=== PATIENT | male | born 1945 | race Caucasian/White ===

== ENCOUNTER 2016-06-30 11:09 | Day surgery (SDC) | payer OTHER ==
[2016-06-30] VITALS (12 sets, daily range): BP systolic 134–178; BP diastolic 74–100
[~2016-06-30] VITALS: Ht 172.7 cm; Wt 92.5 kg
[~2016-06-30 11:09] MED LIST: ASP81TEC PO; ATEN25TA PO; ATOR80TA76 PO; CARV12.53 PO; CEPH500C PO; CLOP75TA69 PO; FENO145T20 PO; FLAX100031 PO; GABA300S2 PO; GLYB5TAB6 PO; HUM100VI4 SQ; HUM10VIA2 SQ; HYDR25TA4 PO; LISI1TAB PO; LOSA100T28 PO; MECL25TA56 PO; MTF500T PO; NIAC250T17 PO; SIMV40TA4 PO; TAMS0.4C2 PO
--- OUTSIDE RECORDS SUMMARY | 2016-06-30 11:12 | XMS REPORT | Continuity of Care Document ---
Author Author [facility] Organization [facility] Address Unknown Phone Unavailable Care Team Providers Care Sack Sorter Name Role Phone PCP Unavailable Source Comments Some departments are not documenting in the electronic medical record. If you do not see the information that you expected, contact Release of Information in the Health Information Management department at [phone] for further assistance in locating additional records.[facility] Active Allergies and Adverse Reactions Not on File Current Medications Not on file Active Problems Not on file Social History Tobacco Use Types Packs/Day Years Used Date Never Assessed Plan of Care Health Maintenance Due Date Last Done Comments Physical (Comprehensive) 1952 Exam Pertussis Vaccine 1957 Tetanus Vaccine 1963 Colorectal Cancer 01/16/1996 Screening Shingles Vaccine 2006 Prevnar/Pneumovax (#1) 2011 Influenza Vaccine 02/10/2016 Results from Last 3 Months Not on file
--- OUTSIDE RECORDS SUMMARY | 2016-06-30 11:13 | XMS REPORT | Continuity of Care Document ---
Author Author [facility] Organization [facility] Address Unknown Phone Unavailable Care Team Providers Care Monorail Operator Name Role Phone PCP Unavailable Source Comments Some departments are not documenting in the electronic medical record. If you do not see the information that you expected, contact Release of Information in the Health Information Management department at [phone] for further assistance in locating additional records.[facility] Active Allergies and Adverse Reactions Not on [...]
[2016-06-30] MEDS ORDERED: LIDOCAINE 1% INJ 20 ML (XYLOCAINE) VIAL ONE (11:29)
[2016-06-30] MEDS ORDERED: NS IV 1000 ML 1,000 ML ONE (11:29)
[2016-06-30] MEDS ORDERED: HEParin (CATH LAB) 2,000 ML IV ONE (11:29)
[2016-06-30 12:56] LABS: RED BLOOD COUNT 6.46 10^6/uL (4.35-5.85); RED CELL DISTRIBUTION WIDTH 14.6 % (10.0-14.5); WHITE BLOOD COUNT 7.2 10^3/uL (4.3-11.0)
[2016-06-30 13:02] LABS: BILIRUBIN,URINE NEGATIVE (NEGATIVE); KETONES,URINE NEGATIVE (NEGATIVE); LEUKOCYTE ESTERASE ,URINE NEGATIVE (NEGATIVE); NITRITE,URINE NEGATIVE (NEGATIVE); PH,URINE 5 (5-9); PROTEIN,URINE 4+ (NEGATIVE); UROBILINOGEN,URINE NORMAL (NORMAL)
[2016-06-30 13:07] LABS: PROTHROMBIN TIME PATIENT 12.5 SEC (12.2-14.7)
[2016-06-30 13:25] LABS: WBC,URINE RARE /HPF
--- NOTE | 2016-06-30 13:30 | Diagnostic Imaging Report ---
INDICATION: Hypertension. Study is performed prior to cardiac catheterization. TIME OF EXAM: 1319 hours. COMPARISON: Comparison is made to study of 04/24/2016. FINDINGS: Overall heart size and pulmonary vascularity are within normal limits. Mildly prominent interstitial markings are seen throughout both lungs. Finding has somewhat improved compared to previous study. No pneumothorax, consolidation, or significant pleural fluid is identified. IMPRESSION: Improved bilateral interstitial lung disease. Remaining densities may be due to scarring. There is no evidence of consolidation or other acute abnormality. Dictated by: Dictated on workstation # [id number]
[2016-06-30 13:46] LABS: ALBUMIN 3.7 G/DL (3.2-4.5); BILIRUBIN,TOTAL 0.4 MG/DL (0.1-1.0); CALCIUM 9.5 MG/DL (8.5-10.1); CREATININE SERUM 1.25 MG/DL (0.60-1.30); POTASSIUM 4.7 MMOL/L (3.6-5.0); TOTAL PROTEIN 6.7 G/DL (6.4-8.2)
[2016-06-30] MEDS ORDERED: NS IV 1000 ML 1,000 ML IV SCH (14:15)
--- NOTE | 2016-06-30 14:15 | Cardiac Procedure Note-CS/ASA ---
Pre-Procedure Note Pre-Op Procedure Note H&P Reviewed The H&P was reviewed, patient examined and no changes noted. Date H&P Reviewed: Jun 30, 2016 Time H&P Reviewed: 14:14 Conscious Sedation Pre-Proced Time Reviewed: 14:14 ASA Class: 3 Airway Mallampati Classification: ([place] appropriate class) I. II. III, IV Lungs Heart ASA score ASA 1: a normal healthy patient ASA 2: a patient with a mild systemic disease (mid diabetes, controlled hypertension, obesity x ASA 3: a patient with a severe systemic disease that limits activity (angina , COPD, prior Myocardial infarction) ASA 4: a patient with an incapacitating disease that is a constant threat to life (CHF, renal failure) ASA 5: a moribund patient not expected to survive 24 hrs. (ruptured aneurysm) ASA 6: a declared brain patient whose organs are being harvested. For emergent operations, add the letter E after the classification Grade 3 Sedation Plan: Analgesia, Amnesia, Plan communicated to team members, Discussed options with patient/fam, Discussed risks with patient/fam Note The patient is an appropriate candidate to undergo the planned procedure, sedation, and anesthesia. The patient immediately re-assessed prior to indication. SALOME RUTHERFORD MD Jun 30, 2016 14:15
[2016-06-30] MEDS ORDERED: INSU100V6 SQ ×2 (14:24)
[2016-06-30] MEDS ORDERED: GABA-488 PO (14:24)
[2016-06-30] MEDS ORDERED: DOXY100T19 PO (14:24)
[2016-06-30] MEDS ORDERED: CLOP75TA69 PO (14:24)
[2016-06-30] MEDS ORDERED: INSU100V16 SQ (14:24)
[2016-06-30] MEDS ORDERED: FINA5TAB6 PO (14:24)
[2016-06-30] MEDS ORDERED: MIDAZOLAM 5 MG/5 ML (VERSED) VIAL ONE (16:13)
[2016-06-30] MEDS ORDERED: fentaNYL INJECTION 100 MCG/2 ML AMP ONE (16:13)
[2016-06-30] MEDS ORDERED: HEParin 1000 UNIT/ML (10ML VIAL) FOR BOLUS ONE (16:43)
[2016-06-30] MEDS ORDERED: NITROGLYCERIN DRIP 25 MG/D5W 250 ML IV ONE (17:11)
[2016-06-30] MEDS ORDERED: ENALAPRILAT 2.5 MG/2 ML (VASOTEC) VIAL IV ONE (17:24)
[2016-06-30] MEDS ORDERED: meTOprolol 5 MG/5 ML (LOPRESSOR) VIAL ONE (17:24)
[2016-06-30] MEDS ORDERED: ASPIRIN 325 MG (5 GR) TABLET ONE (18:16)
[2016-06-30] MEDS ORDERED: CLOPIDOGREL 300 MG (PLAVIX) TABLET PO ONE (18:16)
[2016-06-30] MEDS ORDERED: PATIENT MAY USE OWN MEDS, ALL PO SCH (18:30)
[2016-06-30] MEDS ORDERED: diphenhydrAMINE 50 MG/ML INJ (BENADRYL) ONE (18:41)
[2016-06-30] MEDS: NS IV 1000 ML 1,000 ML IV SCH (21:29)
[2016-07-01] VITALS: BP 147/89
[2016-07-01] MEDS: NS IV 1000 ML 1,000 ML IV SCH (01:00)
[2016-07-01 03:49] LABS: MEAN PLATELET VOLUME 12.3 FL (7.4-10.4); RED BLOOD COUNT 5.98 10^6/uL (4.35-5.85); RED CELL DISTRIBUTION WIDTH 14.5 % (10.0-14.5)
[2016-07-01 04:00] VITALS: BP 109/68
[2016-07-01 04:02] LABS: CALCIUM 8.6 MG/DL (8.5-10.1); CREATININE SERUM 1.22 MG/DL (0.60-1.30); POTASSIUM 4.1 MMOL/L (3.6-5.0)
[2016-07-01 08:31] VITALS: BP 139/83
[2016-07-01] MEDS ORDERED: CARVEDILOL 6.25 MG (COREG) TAB PO SCH (09:00)
[2016-07-01] MEDS ORDERED: CARVEDILOL 12.5 MG (COREG) TABLET PO SCH (09:00)
[2016-07-01] MEDS ORDERED: CLOPIDOGREL 75 MG (PLAVIX) TABLET PO SCH (09:00)
[2016-07-01] MEDS ORDERED: HYDROCHLOROTHIAZIDE 12.5 MG (HCTZ) CAP PO SCH (09:00)
[2016-07-01] MEDS ORDERED: DOXYCYCLINE 100 MG (VIBRAMYCIN) TABLET PO SCH (09:00)
[2016-07-01] MEDS ORDERED: FENOFIBRATE 134 MG (LOFIBRA) CAPSULE PO SCH (09:00)
[2016-07-01] MEDS ORDERED: LOSARTAN 50 MG (COZAAR) TAB PO SCH (09:00)
[2016-07-01] MEDS ORDERED: GABAPENTIN 300 MG (NEURONTIN) CAP PO SCH (09:00)
[2016-07-01] MEDS ORDERED: ASPIRIN E.C. 81 MG (ECOTRIN) TAB PO SCH (09:00)
--- NOTE | 2016-07-01 09:01 | Cardiology Progress Note ---
Subjective Subjective/Events-last exam patient is sitting in a chair, feeling well, no new complain. Review of Systems General: No Chills, No Night Sweats, No Fatigue, No Malaise, No Appetite, No Other HEENT: No Head Aches, No Visual Changes, No Eye Pain, No Ear Pain, No Dysphasia , No Sinus Congestion, No Post Nasal Drip, No Sore Throat, No Other Pulmonary: No Dyspnea, No Cough, No Pleuritic Chest Pain, No Other Cardiovascular: No: Chest Pain, Edema, Lt Headedness, Orthopnea, Other, Palpitations, Paroxysmal Noc. Dyspnea Objective-Cardiology Exam Last Set of Vital Signs Vital Signs 07/01/16 08:31 Temp 98.3 Pulse 78 Resp 16 B/P 139/83 Pulse Ox 96 O2 Delivery Room Air Capillary Refill : NONE General: Alert, Oriented X3, Cooperative HEENT: Atraumatic, PERRLA Neck: Supple, No JVD, No Thyromegaly Lungs: Clear to Auscultation, Normal Air Movement Heart: Regular Rate, Normal S1, Normal S2, No Murmurs Abdomen: Normal Bowel Sounds, Soft, No Tenderness, No Hepatosplenomegaly, No Masses Extremities: No Clubbing, No Cyanosis, No Edema, No Tenderness/Swelling Skin: No Rashes, No Breakdown, No Significant Lesion Neuro: Normal Gait, Normal Speech, Strength at 5/5 X4 Ext, Normal Tone, Sensation Intact Psych/Mental Status: Mental Status NL, Mood NL Results Lab Laboratory Tests 06/30/16 12:50 06/30/16 13:24 07/01/16 03:25 A/P-Cardiology Admission Diagnosis Peripheral arterial disease Hypertension Hyperlipidemia Foot ulcer Tobaccoism Assessment/Plan peripheral arterial disease, bilateral angiogram was done, stenting to the right SFA proximal and distal, attempt intervention on the right tibial artery without success, patient may need pedal access, I will evaluate MARY. Severe disease at the left lower extremity. Nonhealing foot ulcer. Educated on smoking cessation and compliance with medication Hypertension, continue current medication monitor Hyperlipidemia, continue current medications and monitor Tobaccoism educated on smoking cessation Psoriasis Diabetes mellitus SALOME RUTHERFORD MD Jul 01, 2016 09:00
--- NOTE | 2016-07-01 09:01 | Clinic Account Progress/Dx ---
Clinic Account Progress/Dx DIAGNOSIS: Diagnosis Peripheral arterial disease Hypertension Hyperlipidemia Foot ulcer Tobaccoism SALOME RUTHERFORD MD Jul 01, 2016 09:01
[2016-07-01] MEDS ORDERED: inSUlin DETERMIR 1 UNIT/0.01 ML (LEVEMIR) CHARGE PER UNIT SQ SCH ×2 (09:03→21:00)
[2016-07-01] MEDS ORDERED: PENT400T2 PO (09:03)
[2016-07-01] MEDS ORDERED: FINASTERIDE (PROSCAR) 5 MG TAB PO SCH (09:05)
--- NOTE | 2016-07-01 09:05 | Discharge Inst-Post CATH ---
Discharge Inst-CATH Post Cardiac Cath D/C Inst Follow Up/Plan Appointment with Dr Nina's office in 2-4 weeks CARDIAC CATH DISCHARGE INSTRUCTIONS *Hold Metformin for 48 hours post heart cath. ACTIVITY * Go Home directly and rest. * Limit activity of the leg (or wrist if it was used) for 7 days including aerobics, swimming, jogging, bicycling, etc. * Restrict stair-climbing for 7 days if possible, if not, climb up with your non -cath leg, then bring together on the same step. * Avoid lifting, pushing, pulling or excessive movement of the affected extremity for 7 days. * Customary sexual activity may be resumed after 2 days-use caution not to use a position that strains or causes pain to the affected extremity. * No driving for 24 hours. * NO SMOKING. * Avoid straining for bowel movements for 7 days. * Gentle walking on level ground is allowed. * Returning to work will depend on the type of procedure and the results. Your doctor will discuss this with you. CALL YOUR DOCTOR FOR ANY OF THE FOLLOWING: *If bleeding from the puncture site occurs- Apply gentle pressure to site with clean cloth and call your doctor or EMS. * If a knot or lump forms under the skin, increases in size, or causes pain. * If bruising appears to be worsening or moving further down your leg instead of disappearing. * Temperature above 101 F. CARE OF YOUR GROIN INCISION; * Bruising or purple discoloration of the skin near the puncture site is common. * You may shower only, no bathtub bathing for 5 days. Be careful to avoid slipping as your leg may feel stiff. * If a closure device was used on your femoral artery, please see the attached guide regarding care of the device and your leg. * REMOVE the dressing from your groin the next day after your procedure in the shower. CARE OF YOUR WRIST INCISION; * Bruising or purple discoloration of the skin near the puncture site is common. * You may shower. * DO NOT submerge wrist. * Remove dressing in 24 hours. SALOME NINA MD Jul 01, 2016 09:04
[2016-07-01] MEDS ORDERED: ALFUZOSIN HCL 10 MG TAB (UROXATRAL) PO SCH (18:00)
[2016-07-01] MEDS ORDERED: ATORVASTATIN 80 MG (LIPITOR) TABLET PO SCH (21:00)
--- NOTE | 2016-07-02 22:36 | CARDIAC CATHETERIZATION ---
PROCEDURE PHYSICIAN: SALOME RUTHERFORD DATE OF PROCEDURE: 06/30/2016 PERIPHERAL ANGIOGRAM WITH INTERVENTION REPORT: REFERRING PHYSICIAN: Dr. Tiffany Vaughan BRIEF HISTORY: Mr. Alexander is a 71-year-old gentleman with peripheral arterial disease, nonhealing ulcer on the right foot. He has abnormal MARY, monophasic on the right with 0.49 and 0.8 on the left. He was scheduled for peripheral angiogram, possible angioplasty. PROCEDURE NOTE: After explaining the procedure to the patient, all pros and cons were explained. All questions were answered. The patient signed consent, then he was placed on the cardiac catheterization laboratory. Left groin was prepped in a sterile fashion. 6-Afghan sheath was placed in the left femoral artery. Runoff of the left lower extremity was done. Then pigtail catheter advanced to the abdominal aorta. Abdominal aortogram was done in evaluation of the bifurcation. Then at that point, using the pigtail catheter, I advanced to Storq wire in the SFA, removed the pigtail and put a straight catheter in the proximal SFA. Runoff of right lower extremity was made. At that point, I noted that the patient has total occlusion of the tibial peritoneal trunk, anterior tibial artery. Severe disease at the SFA. I decided to proceed with percutaneous intervention. The patient was given 5000 units of heparin, sheath was exchanged into a long 55, 7-Afghan sheath. Then I advanced a mini catheter down to the tibial peritoneal trunk. Attempt to cross the lesion with multiple different wires. I used Command wire V18 and grand slam without success. Removed the wire and injected contrast through the mini catheter, which showed no complication. At that point, I pulled the catheter slightly back and try to redirect the wire into the anterior tibial artery. Advance the wire also. I was unable to establish a good flow in the anterior tibial artery. Injected contrast through the mini catheter in the anterior tibial artery. Then I pulled the catheter back again and injected into the tibial peritoneal trunk, then the popliteal artery. No complication was noted. At that point, the patient was noted to have significant lesions in the mid SFA and distal SFA. I decided to proceed with percutaneous intervention. I did initial dilatation with Wander 5 x 100 balloon, prepped the artery, then I used Lutonix 6 x 100 drug coated balloon, inflated proximally for 3 minutes, then inflated distally where there were significant disease for one minute. Repeat angiogram showed dissection in the proximal and distal portion of the SFA. I decided to proceed with stent deployment. I deployed a Innova self-expanding stent, distal SFA I used a 5 x 80 mm, proximal portion I used 7 s 100 mm deployed. Excellent results were noted. No residual stenosis. The midportion of the SFA has moderate disease, which persists. Repeat angiogram at the end of the procedure showed good results. Continued to have sluggish flow is below the trifurcation. I removed the sheath, exchanged it into the short 7-Afghan sheath, then Mynx device deployed. Hemostasis achieved. FINDINGS: HEMODYNAMICS: 1. Left lower extremity runoff: The left lower extremity runoff was done through the sheath, which showed 70% stenosis at the mid SFA, 40 to 50% stenosis at the distal SFA. Total occlusion of the anterior tibial artery with severe disease at the posterior tibial and peritoneal artery, reconstructed distally by collaterals. 2. Abdominal aortogram: Abdominal aortogram was done in AP position showing the bifurcation to have moderate disease. No dissection was noted. Small abdominal aortic aneurysmal dilatation. 3. Right lower extremity runoff: The right lower extremity runoff showed severe disease in the proximal and distal SFA. Total occlusion of the anterior tibial, posterior tibial, and peroneal arteries, failed attempt to intervene on the arteries below the knee. The proximal SFA and distal SFA, a balloon angioplasty was done then a drug coated balloon followed by 2 stent deployment with self-expanding Innova 6 x 80 distally and 7 x 100 proximally with excellent result. No residual stenosis was noted. IN CONCLUSION: 1. Severe stenosis at the proximal and distal right SFA with successful balloon angioplasty, then drug coated balloon followed by 2 stent deployment using self-expanding stent proximally 7 x 100 mm and distally 6 x 80 mm with excellent results. Mid SFA has mild to moderate disease, nonobstructive disease, with excellent results. 2. Below the knee, the anterior tibial artery is occluded. Posterior tibial and peroneal arteries are occluded. Reconstructed by collaterals. 3. Left lower extremity has moderate disease in the SFA. Also occluded anterior tibial artery and the posterior and peroneal artery. 4. Small aneurysmal dilatation of the abdominal aorta above the bifurcation. DISCUSSION AND RECOMMENDATION: The patient was educated on smoking cessation. He was loaded with aspirin and Plavix. I will continue maximizing medical therapy. Monitor MARY. If there is no improvement, I will consider pedal access with attempt to recanalize the posterior tibial and peroneal artery of the right leg. Job ID: [id number] Dictated Date: 06/30/2016 18:34:38 Marine Animal Trainer Date: 07/02/2016 22:17:41 / bebo
[2016-07-07] MEDS ORDERED: CEPH500C PO (08:37)
[2016-07-07] MEDS ORDERED: HYDR-3812 PO (08:37)
== END 2016-07-01 10:20 | disposition home or self-care (01) ==
LOC: CATH 11:09 → ICU 19:00 → CATH 07-01 10:20
PROVIDERS: ATTEND Internal Medicine Cardiovascular Disease
DX: L97.519 Non-pressure chronic ulcer of other part of right foot with unspecified severity (principal); I70.203 Unspecified atherosclerosis of native arteries of extremities, bilateral legs; I70.92 Chronic total occlusion of artery of the extremities; E11.621 Type 2 diabetes mellitus with foot ulcer; I10 Essential (primary) hypertension; E78.2 Mixed hyperlipidemia; Z79.899 Other long term (current) drug therapy; Z79.4 Long term (current) use of insulin; Z86.73 Personal history of transient ischemic attack (TIA), and cerebral infarction without residual deficits; Z72.0 Tobacco use
CPT/HCPCS: 36247; 36415; 37226; 71010; 75625; 75716; 80048; 80053; 80061; 81000; 82962; 85027; 85347; 85610; 85730; 93005

== ENCOUNTER → 2016-07-05 | Outpatient (CLI) | payer OTHER ==
[~2016-07-05] MED LIST changes: +CATHETER FLUSH 10 ML SYR IV PRN; +CLOB15OI15 TP; +DOXY100T19 PO; +FINA5TAB6 PO; +FLAX1000 PO; +GABA-488 PO; +HYDR-3812 PO; +HYDR28CR43 TP; +INSU100V16 SQ; +INSU100V6 SQ; +OMEG1CAP58 PO; +PENT400T2 PO; +REGADENOSON 0.4 MG/5 ML SYR (LEXISCAN) IV ONE
--- OUTSIDE RECORDS SUMMARY | 2016-07-05 12:29 | XMS REPORT | Continuity of Care Document ---
Author Author [facility] Organization [facility] Address Unknown Phone Unavailable Care Team Providers Care Meters Superintendent Name Role Phone PCP Unavailable Source Comments Some departments are not documenting in the electronic medical record. If you do not see the information that you expected, contact Release of Information in the Health Information Management department at [phone] for further assistance in locating additional records.[facility] Active Allergies and Adverse Reactions [...]
[2016-07-05 13:37] VITALS: BP 131/72
[2016-07-05 13:41] VITALS: BP 123/71
[2016-07-05 13:42] VITALS: BP 124/68
--- NOTE | 2016-07-06 08:04 | STRESS TEST ---
PROCEDURE PHYSICIAN: SALOME RUTHERFORD DATE OF PROCEDURE: 07/05/2016 LEXISCAN MYOVIEW STRESS TEST: REFERRING PHYSICIAN: Dr. Tiffany Vaughan BASELINE HEART RATE: 82 BASELINE BLOOD PRESSURE: 131/72 BASELINE EKG: Sinus rhythm with right bundle branch block. IN SUMMARY: The patient was injected with 10.95 mCi of technetium 99 Myoview and the resting images were obtained. Then the patient received 0.4 mg of Lexiscan followed by 29.9 mCi of technetium 99 Myoview. Throughout the test, there were no EKG changes. Continued to have right bundle branch block. The resting and stress images were reviewed and compared in the short axis, horizontal long axis, and vertical long axis views. Review of the images showed fixed defect involving the basal to mid inferior wall, reversible ischemia involving the inferoapical segment and inferolateral wall. SSS is 10, SDS 2, TID value 1. On the gated images, the left ventricle appeared to be dilated with diffuse left ventricular hypokinesia, akinesia at the inferior wall. Calculated ejection fraction 28%. IN CONCLUSION: 1. The patient tolerated Lexiscan well. 2. Diaphragmatic attenuation with fixed defect at the basal to mid inferior wall. Reversible ischemia at the anteroapical segment and inferolateral wall. 3. Dilated left ventricle with diffuse left ventricular hypokinesia, akinesia of the inferior wall. Calculated ejection fraction 28%. Job ID: [id number] Dictated Date: 07/05/2016 18:46:00 Director Telehealth Date: 07/06/2016 08:01:45 / bebo
== END ==
LOC: CARD 12:25
PROVIDERS: ATTEND Internal Medicine Cardiovascular Disease
DX: I10 Essential (primary) hypertension (principal); E78.2 Mixed hyperlipidemia; I73.9 Peripheral vascular disease, unspecified; Z72.0 Tobacco use; L97.509 Non-pressure chronic ulcer of other part of unspecified foot with unspecified severity; I63.9 Cerebral infarction, unspecified
CPT/HCPCS: 78452; 93017

== ENCOUNTER 2016-07-06 10:43 | Outpatient (CLI) | payer OTHER ==
[~2016-07-06] VITALS: Ht 172.7 cm; Wt 91.3 kg
[~2016-07-06 10:43] MED LIST changes: -CLOB15OI15 TP; -FLAX1000 PO; -HYDR-3812 PO; -HYDR28CR43 TP; -OMEG1CAP58 PO
--- OUTSIDE RECORDS SUMMARY | 2016-07-06 10:47 | XMS REPORT | Continuity of Care Document ---
Author Author [facility] Organization [facility] Address Unknown Phone Unavailable Care Team Providers Care Dust Operator Name Role Phone PCP Unavailable Source Comments Some departments are not documenting in the electronic medical record. If you do not see the information that you expected, contact Release of Information in the Health Information Management department at [phone] for further assistance in locating additional records.[facility] Active Allergies and Adverse Reactions [...]
[2016-07-06] MEDS ORDERED: OMEG1CAP58 PO (11:02)
[2016-07-06 11:05] VITALS: BP 123/78
[2016-07-07] MEDS ORDERED: HYDR-3812 PO (08:37)
[2016-07-07] MEDS ORDERED: CEPH500C PO (08:37)
== END 2016-07-06 11:14 | disposition home or self-care (01) ==
LOC: PREOP 10:43
PROVIDERS: ATTEND Podiatrist Foot & Ankle Surgery
DX: M86.171 Other acute osteomyelitis, right ankle and foot (principal)
CPT/HCPCS: 87081

== ENCOUNTER → 2016-07-06 | Outpatient (CLI) | payer OTHER ==
[~2016-07-06] MED LIST changes: -CATHETER FLUSH 10 ML SYR IV PRN; -REGADENOSON 0.4 MG/5 ML SYR (LEXISCAN) IV ONE
--- OUTSIDE RECORDS SUMMARY | 2016-07-06 08:18 | XMS REPORT | Continuity of Care Document ---
Author Author [facility] Organization [facility] Address Unknown Phone Unavailable Care Team Providers Care Knife Grinder Name Role Phone PCP Unavailable Source Comments Some departments are not documenting in the electronic medical record. If you do not see the information that you expected, contact Release of Information in the Health Information Management department at [phone] for further assistance in locating additional records.[facility] Active Allergies and Adverse Reactions Not on [...]
--- NOTE | 2016-07-10 09:09 | ECHOCARDIOGRAPHY REPORT ---
PROCEDURE PHYSICIAN: SALOME RUTHERFORD DATE OF PROCEDURE: 07/06/2016 TWO DIMENSIONAL ECHOCARDIOGRAM REPORT PRIMARY PHYSICIAN: OTHER PHYSICIAN: REFERRING PHYSICIAN: ORDERING PHYSICIAN: INDICATION FOR THE PROCEDURE: 1. CVA. 2. Hypertension. MEASUREMENTS DERIVED VALUES LV DIAMETER (LAX) NORMALS NORMALS Diastolic 3.5 (3.6-5.2) Eject. Fract. 35% (60%+/-6%) Systolic (2.3-3.9) Diastolic Vol. % Shortening (0.22-0.42) Systolic Vol. Aortic Root IVS THICKNESS Diastolic 1.3 (0.6-1.1) LVPW THICKNESS Diastolic 1.3 (0.6-1.1) LA DIAMETER Systolic 3.5 (2.1-3.7) FINDINGS: 1. Technical quality is good. 2. The left ventricle is normal in size with moderate left ventricular hypertrophy noted diffusely. Hypokinesia was noted involving the anterior wall and anterior septum. Systolic function is reduced. Estimated ejection fraction 35%. 3. The left atrium is in the upper normal limit in size. No clot or thrombus were seen within the left atrium. 4. The right atrium and right ventricle are normal in size. No clot or thrombus were seen within the right side. 5. Mitral valve is mildly calcified with mild mitral regurgitation noted by color Doppler flow. No mitral valve prolapse. No mitral valve stenosis. 6. Aortic valve is calcified, trileaflet with normal opening and closing pattern. No significant aortic stenosis or regurgitation was seen. 7. Tricuspid valve is normal in morphology with trace tricuspid regurgitation noted by color Doppler flow. Insufficient Doppler signal to evaluate pulmonary artery pressure. 8. Pulmonic valve is functioning normally. 9. No pericardial effusion. CONCLUSION: 1. Moderate left ventricular hypertrophy noted diffusely. Hypokinesia involving the mid to apical anterior wall and anterior septum. Systolic function is reduced. Estimated ejection fraction 35%. 2. Calcified mitral valve with mild mitral regurgitation. Aortic valve sclerosis. No aortic stenosis. 3. Insufficient Doppler signal to evaluate pulmonary artery pressure. Job ID: [id number] Dictated Date: 07/10/2016 08:14:01 Doctor Of Veterinary Medicine Date: 07/10/2016 09:05:32 / bebo
== END ==
LOC: CARD 08:15
PROVIDERS: ATTEND Internal Medicine Cardiovascular Disease
DX: I63.9 Cerebral infarction, unspecified (principal); I10 Essential (primary) hypertension; E78.2 Mixed hyperlipidemia; I73.9 Peripheral vascular disease, unspecified; L97.509 Non-pressure chronic ulcer of other part of unspecified foot with unspecified severity; Z72.0 Tobacco use
CPT/HCPCS: 93306

== ENCOUNTER 2016-07-07 06:00 | Day surgery (SDC) | payer OTHER ==
[~2016-07-07] VITALS: Ht 172.7 cm; Wt 91.3 kg
[~2016-07-07 06:00] MED LIST changes: +OMEG1CAP58 PO
[2016-07-07] MEDS ORDERED: ceFAZolin 1,000 MG (ANCEF) VIAL ONE (06:06)
[2016-07-07] MEDS ORDERED: NORMAL SALINE (BAXTER MINI) 50 ML IV ONE (06:06)
--- OUTSIDE RECORDS SUMMARY | 2016-07-07 06:11 | XMS REPORT | Continuity of Care Document ---
Author Author [facility] Organization [facility] Address Unknown Phone Unavailable Care Team Providers Care Locker Attendant Name Role Phone PCP Unavailable Source Comments Some departments are not documenting in the electronic medical record. If you do not see the information that you expected, contact Release of Information in the Health Information Management department at [phone] for further assistance in locating additional records.[facility] Active Allergies and Adverse Reactions Not [...]
--- OUTSIDE RECORDS SUMMARY | 2016-07-07 06:11 | XMS REPORT | Continuity of Care Document ---
Author Author [facility] Organization [facility] Address Unknown Phone Unavailable Care Team Providers Care Mobile Pet Groomer Name Role Phone PCP Unavailable Source Comments Some departments are not documenting in the electronic medical record. If you do not see the information that you expected, contact Release of Information in the Health Information Management department at [phone] for further assistance in locating additional records.[facility] Active Allergies and Adverse Reactions [...]
[2016-07-07 06:37] VITALS: BP 134/73
--- NOTE | 2016-07-07 06:46 | HISTORY AND PHYSICAL ---
DICTATING PHYSICIAN: Dr. Nascimento DATE OF ADMISSION: 07/07/2016 CHIEF COMPLAINT: Right big toe cutoff, bone has osteomyelitis. This is to by done by Dr. Vaughan. ALLERGIC TO MEDICATIONS: Denies. MEDICATIONS NOW ON: 1. Aspirin 81. 2. Lipitor 80 mg. 3. Augmentin 875. 4. Coreg 12.5 mg. 5. Plavix 75 mg. 6. Doxycycline 100 mg. 7. Fenofibrate 145 mg. 8. Finasteride 5 mg. 9. Gabapentin 300 mg. 10. HCTZ 25 mg. 11. Lantus 100 units. 12. Losartan 100 mg tab. 13. NovoLog 100 units. 14. Flomax 0.4 mg. SURGERIES: 1. Two stents the left leg 3 days ago. 2. 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 3. Cataracts. 4. Bladder surgery three years ago. 5. 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 FAMILY HISTORY: Diabetes sister. Denies asthma, TB, heart disease, lung disease. REVIEW OF SYSTEMS: HEAD: Denies headache, dizziness, fainting. EYES, EARS, NOSE AND THROAT: Denies diplopia, tinnitus, sore throat. RESPIRATORY: Denies asthma, TB, coughing, congestion, trying to stop smoking has cut down. HEART: Denies heart problems or chest pain. GASTROINTESTINAL: Appetite good. Denies blood in stools, diarrhea. Constipation at times. Denies ulcer or vomiting. GENITOURINARY: Denies blood, pain, frequency. PHYSICAL EXAMINATION: The patient is a white male, well-nourished, well-developed, in no acute respiratory distress at rest. Pulse 72, blood pressure 110/80, weight 201. EARS: Not inflamed. EYES: No conjunctivitis or icterus. THROAT: Not inflamed. NECK: Thyroid not enlarged. No abnormal cervical lymphadenopathy noted. No carotid bruits. HEART: Regular rate and rhythm. LUNGS: Clear to auscultation. ABDOMEN: Soft. Liver and spleen nonpalpable. EXTREMITIES: No pretibial edema. Feet are okay. PLAN: The patient okay to have surgery. We will be on standby if has any problems. Job ID: [id number] Dictated Date: 07/06/2016 13:52:09 Hotel Controller Date: 07/07/2016 06:39:34/samira
[2016-07-07] MEDS ORDERED: ceFAZolin 1 GM/NS 50 ML IVPB IV ONE ×2 (07:00)
[2016-07-07] MEDS ORDERED: BUPIVACAINE 0.5% 30 ML (SENSORCAINE) VIAL ONE (07:05)
[2016-07-07] MEDS ORDERED: GENTAMICIN 40 MG/ML 2 ML INJ SDV ONE (07:05)
[2016-07-07] MEDS ORDERED: LIDOCAINE 1% INJ 20 ML (XYLOCAINE) VIAL ONE (07:05)
[2016-07-07] MEDS ORDERED: PROPOFOL INJECTION 50 ML IV ONE (07:10)
[2016-07-07] MEDS ORDERED: LACTATED RINGERS 1,000 ML IV ONE (07:10)
[2016-07-07] MEDS ORDERED: fentaNYL INJECTION 100 MCG/2 ML AMP ONE (07:10)
[2016-07-07] MEDS ORDERED: inSUlin ASPART (NovoLOG) 1 UNIT/0.01 ML (CHARGE PER UNIT) IV ONE ×2 (07:15→07:30)
[2016-07-07] MEDS ORDERED: LACTATED RINGERS 1,000 ML IV PRN (07:20)
[2016-07-07] MEDS ORDERED: MIDAZOLAM 2 MG/2 ML (VERSED) VIAL ONE (07:30)
--- NOTE | 2016-07-07 07:30 | Progress Note-Pre Operative ---
Pre-Operative Progress Note H&P Reviewed The H&P was reviewed, patient examined and no changes noted. Date H&P Reviewed: Jul 07, 2016 Time H&P Reviewed: 07:00 Pre-Operative Diagnosis: Osteomyelitis, right hallux GERMAINE WEI DPM Jul 07, 2016 7:30 am
[2016-07-07] MEDS ORDERED: HYDROcodone/APAP 5 MG/325 MG (LORTAB) TAB PO PRN (08:30)
[2016-07-07] MEDS ORDERED: LACTATED RINGERS 1,000 ML IV SCH (08:30)
--- NOTE | 2016-07-07 08:30 | Progress Note-Post Operative ---
Post-Operative Progess Note Pre-Operative Diagnosis Osteomyelitis, right hallux Post-Operative Diagnosis Same Post-Op Procedure Note Date of Procedure: Jul 07, 2016 Name of Procedure: Amputation of the right hallux Anesthesia Type MAC Estimated blood loss (mL): Minimal Specimen(s) collected Right Hallux GERMAINE WEI Q DPM Jul 07, 2016 8:30 am
[2016-07-07] MEDS ORDERED: CEPH500C PO (08:37)
[2016-07-07] MEDS ORDERED: HYDR-3812 PO (08:37)
[2016-07-07] MEDS ORDERED: ONDANSETRON 4 MG/2 ML (SDV) Z0FRAN IVP PRN (08:45)
[2016-07-07] MEDS ORDERED: morphine INJ 10 MG/ML 1ML (SYR OR VIAL) IVP PRN (08:45)
[2016-07-07 09:00] VITALS: BP 89/48
[2016-07-07 09:30] VITALS: BP 102/54
[2016-07-07 10:00] VITALS: BP 130/79
--- NOTE | 2016-07-07 10:01 | Physical Therapy Ortho Eval ---
PT Orthopedic Evaluation Type of Surgery right hallux amputation secondary to DM Prior Level of Function Current Living Status: Alone Locomotion (Upon Admit): Independent issued axillary crutches Subjective Subjective Patient agrees to PT for gait and stair training with crutches. Entry Into Home: Stairs Without Railing Steps Into Home: 4 Objective Objective PWB right foot; ambulate on right heel with ortho shoe in place Motor Control Motor Control: Motor Control WNL ROM ROM: WFL, except focal deficit Strength Strength: WFL Transfer Transfers (B, C, W/C) (FIM): 7 Gait Gait Assistive Device: Crutches Weight Bearing Restriction: Partial Weight Bearing Location Restriction: RT FOOT Gait (FIM): 5 Distance (FIM): 3=150 ft Gait Level of Assist: 5 Summary/Comments PWB right foot compliance Treatment Rendered Treatment: Gait Train, Step Train (up with the left LE, down with the right LE and crutches) Assessment/Goals Goal Time Frame: 1 Visit Safe Ambulation: Yes Plan Treatment Plan: Discharge, Education PT/Family Agrees to Plan: Yes Time Time In: 935 Time Out: 955 Total Billed Treatment Time: 20 Billed Treatment Time 1 visit EVMod 20 min SHERRY Webber PT Jul 07, 2016 10:01
[2016-07-07 10:05] VITALS: BP 130/79
--- NOTE | 2016-07-07 12:01 | Diagnostic Imaging Report ---
Right foot at 8:47 a.m. INDICATION: Postop. There are no prior studies available for comparison. FINDINGS: Reportedly, the patient has undergone a recent surgical procedure. On this exam, the distal pharynx and the distal half of the proximal phalanx of the great toe have been amputated. There is also a small collection of gas near the distal portion of the remaining proximal phalanx of the great toe. There is no radiopaque body identified. No other fracture or acute bony abnormality is appreciated. There is a prominent calcaneal spur. IMPRESSION: There are postoperative changes consistent with amputation of the distal phalanx of the distal half of the proximal phalanx of the great toe. There is no acute bony abnormality noted otherwise and there is no sign of a radiopaque foreign body. Dictated by: Dictated on workstation # [id number]
--- NOTE | 2016-07-09 11:47 | OPERATIVE REPORT ---
PROCEDURE PHYSICIAN: TIFFANY WEI DATE OF PROCEDURE: 07/07/2016 SURGEON: Tiffany Wei DPM PREOPERATIVE DIAGNOSIS: Osteomyelitis, right hallux. POSTOPERATIVE DIAGNOSIS: Osteomyelitis, right hallux. PROCEDURE: Amputation of the right hallux. WOUND CLASS: Contaminated. ANESTHESIA: Monitored anesthesia care. HEMOSTASIS: Pneumatic ankle tourniquet at 250 mmHg. INDICATION: This 71-year-old male presents with a chronic wound to the right hallux. X-rays were taken which showed a significant osteolyses the distal phalanx. Conservative therapy is met with unsatisfactory results and the agreeable to surgical intervention after risk and complications were discussed at length. He understands that he has poor circulation of the right lower extremity which was partially improved by stent placement. He is working with Dr. Nina in regards to his cardiac care as well. He understands there is a possibility of further amputation necrosis complications and he is willing to proceed. PROCEDURE: The patient was brought back to operating table, placed in supine position. Appropriate timeout was performed. Pneumatic ankle tourniquet was placed on the right lower extremity over several layers of padding. The right foot was anesthetized utilizing 17 mL 1:1 mixture 1% Xylocaine, 0.5% Marcaine injected in a Franco block. The right foot was then prepped and draped in normal sterile manner. The right foot was then elevated, allowed to exsanguinate after which the tourniquet was inflated to 250 mmHg Attention was then directed to the right hallux where an amputation was performed with a racquet-type incision with the long-arm medial. The plantar flap was extended to the mid diaphysis of the distal phalanx and the dorsal flap was about the level of the interphalangeal joint. The incision was deepened down to bone and there is a disarticulation at the interphalangeal joint. The distal phalanx was then sent for gross and microscopic evaluation. However prior to that there was purulent discharge from underneath the nail plate that was swab cultured, aerobic, anaerobic, and fungal. The distal portion of the proximal phalanx appeared to be intact and a power sagittal saw was utilized to resect a piece of the distal phalanx and sent as a separate specimen for gross and microscopic evaluation to confirm that there is and no further invasion of bone. The wound was then power irrigated with 1000 mL of normal saline infused with 80 mg of gentamicin. No other abnormalities were identified, the tourniquet was released and there was some trickle bleeding to the flaps but no active bleeders. The wound was then reapproximated with simple interrupted type stitch with 4-0 Prolene. After some time the plantar flap had appropriate capillary fill time. Postoperative dressing consisted of Betadine soaked Adaptic, sterile 4 x 4, sterile Kerlix, all secured with a Coban wrap. The patient tolerated the anesthesia and procedure well and was transferred from the operating room to the recovery area with vital signs stable and vascular status intact to some degree to the right lower extremity. We will see the patient back in the office in one week period of time. He is to be partial weight-bearing with minimal weight with walker and a splint shoe. He was given a prescription for Percocet and Vicodin. The patient is to follow-up with Dr. Nina in regards to his cardiac care in the near future. Job ID: [id number] Dictated Date: 07/07/2016 08:48:04 Production Cloth Cutter Date: 07/09/2016 11:38:12 / samira
== END 2016-07-07 10:05 | disposition home or self-care (01) ==
LOC: SDC 06:00
PROVIDERS: ATTEND Podiatrist Foot & Ankle Surgery
DX: M86.9 Osteomyelitis, unspecified (principal); Z79.4 Long term (current) use of insulin
CPT/HCPCS: 73620; 82962; 87070; 87075; 87101; 87205; 88305

== ENCOUNTER 2016-08-02 06:43 | Day surgery (SDC) | payer OTHER ==
[2016-08-02] VITALS (9 sets, daily range): BP systolic 130–152; BP diastolic 77–89
[~2016-08-02] VITALS: Ht 172.7 cm; Wt 91.3 kg
[~2016-08-02 06:43] MED LIST changes: +HYDR-3812 PO
--- OUTSIDE RECORDS SUMMARY | 2016-08-02 06:46 | XMS REPORT | Continuity of Care Document ---
Author Author [facility] Organization [facility] Address Unknown Phone Unavailable Care Team Providers Care Adjutant General Name Role Phone PCP Unavailable Source Comments Some departments are not documenting in the electronic medical record. If you do not see the information that you expected, contact Release of Information in the Health Information Management department at [phone] for further assistance in locating additional records.[facility] Active Allergies and Adverse Reactions Not [...]
--- OUTSIDE RECORDS SUMMARY | 2016-08-02 06:48 | XMS REPORT | Continuity of Care Document ---
Author Author [facility] Organization [facility] Address Unknown Phone Unavailable Care Team Providers Care Network Diagnostic Support Specialist Name Role Phone PCP Unavailable Source Comments Some departments are not documenting in the electronic medical record. If you do not see the information that you expected, contact Release of Information in the Health Information Management department at [phone] for further assistance in locating additional records.[facility] Active Allergies and Adverse Reactions Not [...]
[2016-08-02] MEDS ORDERED: HEParin (CATH LAB) 2,000 ML IV ONE (06:56)
[2016-08-02] MEDS ORDERED: NS IV 1000 ML 1,000 ML ONE ×2 (06:56→08:32)
[2016-08-02] MEDS ORDERED: LIDOCAINE 1% INJ 20 ML (XYLOCAINE) VIAL ONE (06:56)
[2016-08-02] MEDS ORDERED: NS IV 1000 ML 1,000 ML IV SCH ×3 (07:30→10:15)
[2016-08-02 07:34] LABS: MEAN PLATELET VOLUME 12.4 FL (7.4-10.4); RED BLOOD COUNT 5.81 10^6/uL (4.35-5.85); WHITE BLOOD COUNT 7.9 10^3/uL (4.3-11.0)
[2016-08-02 07:34] LABS: BILIRUBIN,URINE NEGATIVE (NEGATIVE); KETONES,URINE NEGATIVE (NEGATIVE); LEUKOCYTE ESTERASE ,URINE NEGATIVE (NEGATIVE); NITRITE,URINE NEGATIVE (NEGATIVE); PH,URINE 5 (5-9); PROTEIN,URINE 3+ (NEGATIVE); UROBILINOGEN,URINE NORMAL (NORMAL)
[2016-08-02 07:43] LABS: PROTHROMBIN TIME PATIENT 12.4 SEC (12.2-14.7)
[2016-08-02 07:44] LABS: SQUAMOUS EPITHELIAL CELL,UR 0-2 /HPF
[2016-08-02 07:54] LABS: BILIRUBIN,TOTAL 0.3 MG/DL (0.1-1.0); CALCIUM 9.4 MG/DL (8.5-10.1); CREATININE SERUM 1.64 MG/DL (0.60-1.30); POTASSIUM 4.6 MMOL/L (3.6-5.0)
--- NOTE | 2016-08-02 07:54 | Diagnostic Imaging Report ---
INDICATION: Shortness of breath. History of coronary artery disease and hypertension.. TECHNIQUE: Single-view chest 7:32 AM. CORRELATION STUDY: 06/30/2016. FINDINGS: Heart size, mediastinum, and vasculature stable. Chronic, senescent-type changes about the lung parenchyma. No infiltrate. Degenerative changes with bridging osteophytes of the thoracic spine. IMPRESSION: Relatively negative portable chest. Dictated by: Dictated on workstation # [id number]
[2016-08-02] MEDS ORDERED: inSUlin (REGULAR) HUMAN 1 UNIT/0.01 ML (CHARGE PER UNIT) SC ONE (08:15)
[2016-08-02] MEDS ORDERED: HYDR28CR43 TP (08:25)
[2016-08-02] MEDS ORDERED: CEPH500C PO (08:25)
[2016-08-02] MEDS ORDERED: FLAX1000 PO (08:25)
[2016-08-02] MEDS ORDERED: PENT400T2 PO (08:25)
[2016-08-02] MEDS ORDERED: HYDR-3812 PO (08:25)
[2016-08-02] MEDS ORDERED: CLOB15OI15 TP (08:26)
--- NOTE | 2016-08-02 08:58 | Cardiac Procedure Note-CS/ASA ---
Pre-Procedure Note Pre-Op Procedure Note H&P Reviewed The H&P was reviewed, patient examined and no changes noted. Date H&P Reviewed: Aug 02, 2016 Time H&P Reviewed: 08:58 Conscious Sedation Pre-Proced Time Reviewed: 08:58 ASA Class: 3 Airway Mallampati Classification: ([place] appropriate class) I. II. III, IV Lungs Heart ASA score ASA 1: a normal healthy patient ASA 2: a patient with a mild systemic disease (mid diabetes, controlled hypertension, obesity x ASA 3: a patient with a severe systemic disease that limits activity (angina , COPD, prior Myocardial infarction) ASA 4: a patient with an incapacitating disease that is a constant threat to life (CHF, renal failure) ASA 5: a moribund patient not expected to survive 24 hrs. (ruptured aneurysm) ASA 6: a declared brain patient whose organs are being harvested. For emergent operations, add the letter E after the classification Grade 3 Sedation Plan: Analgesia, Amnesia, Plan communicated to team members, Discussed options with patient/fam, Discussed risks with patient/fam Note The patient is an appropriate candidate to undergo the planned procedure, sedation, and anesthesia. The patient immediately re-assessed prior to indication. SALOME RUTHERFORD MD Aug 02, 2016 08:58
[2016-08-02] MEDS ORDERED: fentaNYL INJECTION 100 MCG/2 ML AMP ONE (09:15)
[2016-08-02] MEDS ORDERED: MIDAZOLAM 5 MG/5 ML (VERSED) VIAL ONE (09:15)
[2016-08-02] MEDS ORDERED: PATIENT MAY USE OWN MEDS, ALL PO SCH (10:15)
[2016-08-02] MEDS ORDERED: inSUlin ASPART (NovoLOG) 1 UNIT/0.01 ML (CHARGE PER UNIT) SQ PRN (10:30)
[2016-08-02] MEDS ORDERED: RX-HYDROCODONE/APAP 5/325 MG #4 TAB PK PO PRN (10:30)
--- NOTE | 2016-08-02 10:34 | Discharge Inst-Post CATH ---
Discharge Inst-CATH Post Cardiac Cath D/C Inst Follow Up/Plan Appointment with Dr Dale Thomas's office next week Appointment with Dr Nina's office in 2-4 weeks CARDIAC CATH DISCHARGE INSTRUCTIONS *Hold Metformin for 48 hours post heart cath. ACTIVITY * Go Home directly and rest. * Limit activity of the leg (or wrist if it was used) for 7 days including aerobics, swimming, jogging, bicycling, etc. * Restrict stair-climbing for 7 days if possible, if not, climb up with your non -cath leg, then bring together on the same step. * Avoid lifting, pushing, pulling or excessive movement of the affected extremity for 7 days. * Customary sexual activity may be resumed after 2 days-use caution not to use a position that strains or causes pain to the affected extremity. * No driving for 24 hours. * NO SMOKING. * Avoid straining for bowel movements for 7 days. * Gentle walking on level ground is allowed. * Returning to work will depend on the type of procedure and the results. Your doctor will discuss this with you. CALL YOUR DOCTOR FOR ANY OF THE FOLLOWING: *If bleeding from the puncture site occurs- Apply gentle pressure to site with clean cloth and call your doctor or EMS. * If a knot or lump forms under the skin, increases in size, or causes pain. * If bruising appears to be worsening or moving further down your leg instead of disappearing. * Temperature above 101 F. CARE OF YOUR GROIN INCISION; * Bruising or purple discoloration of the skin near the puncture site is common. * You may shower only, no bathtub bathing for 5 days. Be careful to avoid slipping as your leg may feel stiff. * If a closure device was used on your femoral artery, please see the attached guide regarding care of the device and your leg. * REMOVE the dressing from your groin the next day after your procedure in the shower. CARE OF YOUR WRIST INCISION; * Bruising or purple discoloration of the skin near the puncture site is common. * You may shower. * DO NOT submerge wrist. * Remove dressing in 24 hours. SALOME NINA MD Aug 02, 2016 10:33
[2016-08-02] MEDS ORDERED: inSUlin ASPART (NovoLOG) 1 UNIT/0.01 ML (CHARGE PER UNIT) ONE (11:48)
[2016-08-02] MEDS ORDERED: NON-FORMULARY MEDICATION 1 EA EA (Cephalexin 500 MG) PO SCH (13:00)
[2016-08-02] MEDS ORDERED: PENTOXIFYLLINE 400 MG (TRENtal) TAB PO SCH (13:00)
[2016-08-02] MEDS ORDERED: GABAPENTIN 300 MG (NEURONTIN) CAP PO SCH (13:00)
[2016-08-02] MEDS ORDERED: TAMSULOSIN 0.4 MG (FLOMAX) CAP PO SCH (18:00)
[2016-08-02] MEDS ORDERED: CARVEDILOL 12.5 MG (COREG) TABLET PO SCH (21:00)
[2016-08-02] MEDS ORDERED: CARVEDILOL 6.25 MG (COREG) TAB PO SCH (21:00)
[2016-08-02] MEDS ORDERED: INSULIN GLARGINE HUM REC ANLOG 60 UNIT SQ SCH (21:00)
[2016-08-02] MEDS ORDERED: ATORVASTATIN 80 MG (LIPITOR) TABLET PO SCH (21:00)
[2016-08-03] MEDS ORDERED: ASPIRIN E.C. 81 MG (ECOTRIN) TAB PO SCH (09:00)
[2016-08-03] MEDS ORDERED: NON-FORMULARY MEDICATION 1 EA EA (Losartan Potassium 100 MG) PO SCH (09:00)
[2016-08-03] MEDS ORDERED: NON-FORMULARY MEDICATION 1 EA EA (Insulin Glargine,Hum.rec.anlog (Lantus) 40 UNIT) SQ SCH (09:00)
[2016-08-03] MEDS ORDERED: NON-FORMULARY MEDICATION 1 EA EA (Fenofibrate Nanocrystallized (Fenofibrate) 145 MG) PO SCH (09:00)
[2016-08-03] MEDS ORDERED: CLOPIDOGREL 75 MG (PLAVIX) TABLET PO SCH (09:00)
[2016-08-03] MEDS ORDERED: NON-FORMULARY MEDICATION 1 EA EA (Finasteride 5 MG) PO SCH (09:00)
[2016-08-03] MEDS ORDERED: HYDROCHLOROTHIAZIDE 25 MG (HCTZ) TAB PO SCH (09:00)
--- NOTE | 2016-08-03 10:58 | CARDIAC CATHETERIZATION ---
PROCEDURE PHYSICIAN: SALOME RUTHERFORD DATE OF PROCEDURE: 08/02/2016 REFERRING PHYSICIAN: Dr. Tiffany Vaughan Mr. Alexander is a 71-year-old gentleman with history of diabetes mellitus, hypertension, hyperlipidemia. He had an abnormal stress test, he had nonhealing foot ulcer. Extensive peripheral arterial disease. He was scheduled for a coronary angiogram and peripheral angiogram. PROCEDURE NOTE: After explaining the procedure to the patient, all pros and cons were explained. All questions were answered. The patient signed a consent, then he was placed on the cardiac catheterization laboratory. Left groin was prepped in a sterile fashion. Local anesthesia applied to the left groin. 6-Macedonian sheath was placed in the left femoral artery. Shaun left was used to access the left coronary system. Multiple views were obtained. I was unable to intubate the right coronary artery with the Shaun right multipurpose. I used AL1 and was successful in obtaining angiogram of the right coronary system. Pigtail catheter advanced to the left ventricular cavity. Pressure was measured. No left ventriculogram was done due to the underlying renal insufficiency and to limit the amount of contrast exposure. Then I used the Shaun right catheter. I advanced the Storq wire and I was able to cross over to the right common femoral artery. Advanced the Shaun right to the right common femoral artery and runoff of the right lower extremity was done, then I did a second injection with reevaluating the popliteal artery and the trifurcation then a 3rd injection evaluating the ankle arteries. At that point sheath was removed. Mynx device deployed. Hemostasis achieved. FINDINGS: HEMODYNAMICS: LV pressure 114/4, end-diastolic pressure of 4, aortic pressure 106/56, mean of 74. No significant gradient across the aortic valve. ANATOMY: 1. Left main coronary artery is bifurcating to left anterior descending and left circumflex artery with no obstructive disease. 2. Left anterior descending artery has a long 60 to 70% stenosis at the proximal portion. 3. Left circumflex artery is moderate in size with 80 to 90% proximal stenosis. Nonobstructive disease. 4. 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 5. No left ventriculogram was done the patient is known to have ejection fraction 30%. 6. Right lower extremity runoff: The right lower extremity runoff was done on multiple phases and evaluation of the SFA and popliteal artery showed patent stents. Below the trifurcation there is reconstruction of the posterior tibial and peroneal arteries by collaterals reaching down to the ankle. CONCLUSION: 1. 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 Severe stenosis at the mid circumflex artery and long segment of stenosis in proximal LAD. 2. Normal left ventricular, end diastolic pressure. The patient is known to have severe ischemic cardiomyopathy, chronic compensated left ventricular systolic dysfunction, ejection fraction 30%. 3. Severe peripheral arterial disease as described above. 4. Nonhealing foot ulcer. DISCUSSION AND RECOMMENDATION: The patient will be evaluated for possible bypass surgery. Management was discussed with Dr. Ramon Thomas. Job ID: [id number] Dictated Date: 08/02/2016 10:39:29 Window Cleaner Date: 08/03/2016 10:50:03 / samira RICH
--- NOTE | 2016-08-03 11:02 | DISCHARGE SUMMARY ---
PROCEDURE PHYSICIAN: SALOME RUTHERFORD DATE OF PROCEDURE: 08/02/2016 REFERRING PHYSICIAN: Dr. Tiffany Vaughan Mr. Alexander is a 71-year-old gentleman with history of diabetes mellitus, hypertension, hyperlipidemia. He had an abnormal stress test, he had nonhealing foot ulcer. Extensive peripheral arterial disease. He was scheduled for a coronary angiogram and peripheral angiogram. PROCEDURE NOTE: After explaining the procedure to the patient, all pros and cons were explained. All questions were answered. The patient signed a consent, then he was placed on the cardiac catheterization laboratory. Left groin was prepped in a sterile fashion. Local anesthesia applied to the left groin. 6-Hungarian sheath was placed in the left femoral artery. Shaun left was used to access the left coronary system. Multiple views were obtained. I was unable to intubate the right coronary artery with the Shaun right multipurpose. I used AL1 and was successful in obtaining angiogram of the right coronary system. Pigtail catheter advanced to the left ventricular cavity. Pressure was measured. No left ventriculogram was done due to the underlying renal insufficiency and to limit the amount of contrast exposure. Then I used the Shaun right catheter. I advanced the Storq wire and I was able to cross over to the right common femoral artery. Advanced the Shaun right to the right common femoral artery and runoff of the right lower extremity was done, then I did a second injection with reevaluating the popliteal artery and the trifurcation then a 3rd injection evaluating the ankle arteries. At that point sheath was removed. Mynx device deployed. Hemostasis achieved. FINDINGS: HEMODYNAMICS: LV pressure 114/4, end-diastolic pressure of 4, aortic pressure 106/56, mean of 74. No significant gradient across the aortic valve. ANATOMY: 1. Left main coronary artery is bifurcating to left anterior descending and left circumflex artery with no obstructive disease. 2. Left anterior descending artery has a long 60 to 70% stenosis at the proximal portion. 3. Left circumflex artery is moderate in size with 80 to 90% proximal stenosis. Nonobstructive disease. 4. 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 5. No left ventriculogram was done the patient is known to have ejection fraction 30%. 6. Right lower extremity runoff: The right lower extremity runoff was done on multiple phases and evaluation of the SFA and popliteal artery showed patent stents. Below the trifurcation there is reconstruction of the posterior tibial and peroneal arteries by collaterals reaching down to the ankle. CONCLUSION: 1. 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 Severe stenosis at the mid circumflex artery and long segment of stenosis in proximal LAD. 2. Normal left ventricular, end diastolic pressure. The patient is known to have severe ischemic cardiomyopathy, chronic compensated left ventricular systolic dysfunction, ejection fraction 30%. 3. Severe peripheral arterial disease as described above. 4. Nonhealing foot ulcer. DISCUSSION AND RECOMMENDATION: The patient will be evaluated for possible bypass surgery. Management was discussed with Dr. Ramon Thomas. FINAL DIAGNOSIS: 1. Coronary artery disease. 2. Congestive heart failure, chronic compensated left ventricular systolic dysfunction, ischemic cardiomyopathy, ejection fraction 30%. 3. Hypertension. 4. Hyperlipidemia/hypertriglyceridemia. 5. Diabetes mellitus. 6. Peripheral arterial disease. 7. Nonhealing foot ulcer Job ID: [id number] Dictated Date: 08/02/2016 10:39:29 Quality Assurance Date: 08/03/2016 10:57:48/samira RICH
== END 2016-08-02 15:20 | disposition home or self-care (01) ==
LOC: CATH 06:43 → ICU 10:31 → CATH 15:20
PROVIDERS: ATTEND Internal Medicine Cardiovascular Disease
DX: R94.39 Abnormal result of other cardiovascular function study (principal); I25.10 Atherosclerotic heart disease of native coronary artery without angina pectoris; I25.82 Chronic total occlusion of coronary artery; L97.519 Non-pressure chronic ulcer of other part of right foot with unspecified severity; I50.22 Chronic systolic (congestive) heart failure; I25.5 Ischemic cardiomyopathy; I10 Essential (primary) hypertension; E78.5 Hyperlipidemia, unspecified; E11.621 Type 2 diabetes mellitus with foot ulcer; Z79.899 Other long term (current) drug therapy; Z79.4 Long term (current) use of insulin; Z72.0 Tobacco use; Z86.73 Personal history of transient ischemic attack (TIA), and cerebral infarction without residual deficits
CPT/HCPCS: 36246; 36415; 71010; 75710; 80053; 80061; 81000; 82962; 85027; 85610; 85730; 87081; 93005; 93458

== ENCOUNTER 2019-01-21 14:18 | Outpatient (CLI) | payer OTHER ==
[~2019-01-21] VITALS: Ht 172.7 cm; Wt 84.4 kg
[~2019-01-21 14:18] MED LIST changes: +ACHD5005 PO; +CLOB15OI15 TP; -FENO145T20 PO; +FENO145T37 PO; +FLAX10004 PO; -HYDR-3812 PO; +HYDR28CR43 TP; -LOSA100T28 PO; +LOSA100T57 PO; -PENT400T2 PO; +PNT400TCR PO
[2019-01-21] MEDS ORDERED: TAMS0.4C98 PO (14:43)
[2019-01-21] MEDS ORDERED: FENO48TA5 PO (14:43)
[2019-01-21] MEDS ORDERED: ASPI-999 PO (14:46)
[2019-01-21] MEDS ORDERED: FENO145T37 PO (14:47)
[2019-01-21 14:58] VITALS: BP 166/90
[2019-01-21 15:25] LABS: BASOPHILS % (AUTO) 1 % (0-10); EOSINOPHILS # (AUTO) 0.3 10^3/uL (0.0-0.3); EOSINOPHILS % (AUTO) 4 % (0-10); HEMATOCRIT 47 % (40-54); HEMOGLOBIN 15.9 G/DL (13.3-17.7); LYMPHOCYTES % (AUTO) 29 % (12-44); MEAN CORPUSCULAR HEMOGLOBIN 28 PG (25-34); MEAN CORPUSCULAR HGB CONC 34 G/DL (32-36); MEAN CORPUSCULAR VOLUME 84 FL (80-99); MEAN PLATELET VOLUME 11.5 FL (7.4-10.4); MONOCYTES # (AUTO) 0.6 X 10^3 (0.0-1.0); MONOCYTES % (AUTO) 8 % (0-12); NEUTROPHILS # (AUTO) 4.1 X 10^3 (1.8-7.8); NEUTROPHILS % (AUTO) 59 % (42-75); PLATELET COUNT 197 10^3/uL (130-400); RED CELL DISTRIBUTION WIDTH 14.9 % (10.0-14.5)
[2019-01-21 15:26] LABS: BILIRUBIN,URINE NEGATIVE (NEGATIVE); CLARITY,URINE SLIGHTLY CLOUDY; COLOR,URINE YELLOW; GLUCOSE, URINE (UA) NEGATIVE (NEGATIVE); KETONES,URINE NEGATIVE (NEGATIVE); LEUKOCYTE ESTERASE ,URINE 2+ (NEGATIVE); NITRITE,URINE NEGATIVE (NEGATIVE); PH,URINE 5 (5-9); PROTEIN,URINE 4+ (NEGATIVE); UROBILINOGEN,URINE NORMAL (NORMAL)
[2019-01-21 15:36] LABS: WBC,URINE >100 /HPF
[2019-01-21 15:37] LABS: AMORPHOUS SEDIMENT,UR FEW AMOR URATES /LPF; BACTERIA,URINE LARGE /HPF; YEAST,URINE LARGE /HPF
[2019-01-21] MEDS ORDERED: ROSU40TA23 PO (15:40)
[2019-01-21] MEDS ORDERED: DULA1.5P2 SQ (15:40)
[2019-01-21 15:44] LABS: CALCIUM 9.8 MG/DL (8.5-10.1); CREATININE SERUM 1.48 MG/DL (0.60-1.30); POTASSIUM 4.3 MMOL/L (3.6-5.0)
--- NOTE | 2019-01-21 16:24 | Diagnostic Imaging Report ---
INDICATION: Preop for TURP procedure. TIME OF EXAM: 3:25 p.m. COMPARISON: Correlation is made with prior chest from 08/02/2016. FINDINGS: The heart size is normal. The pulmonary vascularity is unremarkable. The lungs are clear. No infiltrate, effusion or pneumothorax is detected. IMPRESSION: No acute cardiopulmonary process is detected. Dictated by: Dictated on workstation # [id number]
[2019-01-22] MEDS ORDERED: DULA0.75 SQ (14:20)
[2019-01-23] MEDS ORDERED: CLOB15CR3 TP (13:35)
[2019-01-23] MEDS ORDERED: FLUT16SP22 NS (13:35)
[2019-01-23] MEDS ORDERED: SILD100T67 PO (13:39)
== END 2019-01-21 15:30 | disposition home or self-care (01) ==
LOC: PREOP 14:18
PROVIDERS: ATTEND Urology
DX: Z01.818 Encounter for other preprocedural examination (principal); N40.0 Benign prostatic hyperplasia without lower urinary tract symptoms
CPT/HCPCS: 36415; 71046; 80048; 81000; 85025; 86850; 86900; 86901; 87081; 87088; 93005

== ENCOUNTER → 2019-10-13 | Outpatient (CLI) | payer OTHER, MEDICARE ==
[~2019-10-13] MED LIST changes: +ASPI-999 PO; +CLOB15CR3 TP; -DOXY100T19 PO; +DOXY100T31 PO; +DULA0.75 SQ; +DULA1.5P2 SQ; +FENO145T26 PO; -FENO145T37 PO; +FENO48TA10 PO; +FLUT16SP22 NS; +ROSU40TA23 PO; +SILD100T67 PO; +TMSL.4C PO
--- NOTE | 2019-10-13 11:04 | Diagnostic Imaging Report ---
PROCEDURE: CT abdomen and pelvis without contrast. TECHNIQUE: Multiple contiguous axial images were obtained through the abdomen and pelvis without the use of intravenous contrast. Auto Exposure Controls were utilized during the CT exam to meet ALARA standards for radiation dose reduction. INDICATION: Hematuria. No priors. FINDINGS: There is prostatomegaly with central prostatic fluid attenuating defect presumed reflect changes of a previous TUR. Urinary bladder wall is mildly thickened diffusely which can be seen in the setting of chronic outlet obstruction as well as cystitis in the appropriate scenario. Small bladder diverticulum on the right measured 2 cm. There are multiple sigmoid diverticuli without features of diverticulitis. There is no appendicitis. The liver, gallbladder, bile ducts, spleen, adrenals and pancreas are unremarkable. Some scattered low-density renal cortical foci believed to be cystic but their evaluation limited owing to the absence of contrast. No radiodense urinary tract stones. No hydroureteronephrosis. No perinephric or periureteric edema. Some mild nonspecific bilateral inguinal lymphadenopathy. Pelvic sidewalls revealed no suspicious mass. No abdominal pelvic mesenteric or retroperitoneal adenopathy. IMPRESSION: 1. Urinary bladder wall thickening with presumed previous TUR and prostamegaly. Thickening is likely chronic and reflective of chronic muscular hypertrophy from outlet obstruction which probably would also account for the right-sided diverticulum. Cystitis could not be excluded in the appropriate scenario. 2. Low-density renal nodules believe cystic but incompletely evaluated owing to the absence of contrast. No convincing evidence for solid or suspicious renal mass and no urolithiasis. Dictated by: Dictated on workstation # [id number]
== END ==
LOC: RAD 09:37
PROVIDERS: ATTEND Urology
DX: N32.3 Diverticulum of bladder (principal); R31.9 Hematuria, unspecified
CPT/HCPCS: 74176

== ENCOUNTER 2020-04-06 11:36 | Inpatient (IN) | payer OTHER ==
[~2020-04-06] VITALS: Ht 172 cm; Wt 87.0 kg
--- NOTE | 2020-04-06 12:09 | NUR ---
PT HAS - COVID SWAB FROM [facility]
--- NOTE | 2020-04-06 12:25 | Diagnostic Imaging Report ---
INDICATION: Chest pain and bilateral ankle swelling. Time of exam 12:23 p.m. Correlation is made with prior chest from 01/21/2019. Heart size is normal. There is central congestion. There appear to be infiltrates in both bases as well as pleural fluid in the left base. This is new since the prior exam. Mid and upper lung melara are clear. There is no pneumothorax. IMPRESSION: Central congestion with bibasilar infiltrates and small left pleural effusion. Dictated by: Dictated on workstation # [id number]
[2020-04-06 12:35] LABS: BASOPHILS # (AUTO) 0.1 10^3/uL (0.0-0.1); BASOPHILS % (AUTO) 1 % (0-10); EOSINOPHILS # (AUTO) 0.1 10^3/uL (0.0-0.3); EOSINOPHILS % (AUTO) 1 % (0-10); HEMATOCRIT 53 % (40-54); LYMPHOCYTES # (AUTO) 1.6 10^3/uL (1.0-4.0); LYMPHOCYTES % (AUTO) 17 % (12-44); MEAN CORPUSCULAR HEMOGLOBIN 29 pg (25-34); MEAN CORPUSCULAR HGB CONC 32 g/dL (32-36); MEAN CORPUSCULAR VOLUME 91 fL (80-99); MEAN PLATELET VOLUME 11.9 fL (9.0-12.2); MONOCYTES # (AUTO) 0.8 10^3/uL (0.0-1.0); MONOCYTES % (AUTO) 8 % (0-12); NEUTROPHILS # (AUTO) 7.3 10^3/uL (1.8-7.8); NEUTROPHILS % (AUTO) 74 % (42-75); PLATELET COUNT 200 10^3/uL (130-400); WHITE BLOOD COUNT 9.8 10^3/uL (4.3-11.0)
[2020-04-06 12:45] LABS: ALBUMIN 2.8 GM/DL (3.2-4.5); POTASSIUM 4.6 MMOL/L (3.6-5.0)
[2020-04-06 12:46] LABS: CALCIUM 8.5 MG/DL (8.5-10.1)
[2020-04-06 12:47] LABS: INR 0.9 (0.8-1.4)
[2020-04-06 12:48] LABS: TOTAL PROTEIN 5.4 GM/DL (6.4-8.2)
[2020-04-06 12:49] LABS: BILIRUBIN,TOTAL 0.2 MG/DL (0.1-1.0)
[2020-04-06 12:51] LABS: CREATININE SERUM 1.84 MG/DL (0.60-1.30)
[2020-04-06 12:54] LABS: MAGNESIUM 2.1 MG/DL (1.6-2.4)
--- NOTE | 2020-04-06 13:07 | ED General ---
General Chief Complaint: Respiratory Problems Stated Complaint: ABNORMAL EKG, Nursing Triage Note: PT AMBULATED TO ROOM 8 W CANE. PT CO OF SOA AND SWELLING IN FEEL, PT STATES HAS PROD COUGH GREEN SPUTUM IN COLOR. PT STATES HAS ABN EKG AT [facility] AND WAS SENT TO HOSP. Nursing Sepsis Screen: No Definite Risk Source of Information: Patient Exam Limitations: No Limitations History of Present Illness Date Seen by Provider: Apr 06, 2020 Time Seen by Provider: 12:00 Initial Comments 75-year-old male who presents to the emergency room with complaints of increasing shortness of air, bilateral swelling in his feet, productive cough with green colored sputum for the past 2 weeks. He was seen and evaluated [facility] prior to being sent to the hospital and reports that he had an abnormal EKG. He was also screening for COVID 19 and his rapid test was negative. Associated Systoms: Cough, Shortness of Air Allergies and Home Medications Allergies Coded Allergies: lisinopril (Verified Allergy, Unknown, renal failure, 01/21/19) metformin (Verified Allergy, Unknown, renal failure, 01/21/19) Home Medications Carvedilol 12.5 Mg Tablet, 12.5 MG PO BID, (Reported) LAST FILLED FROM [facility] 06-21-18 #90 1/2 TABLET TWICE DAILY - PATIENT NOW STATES DOSE HAS BEEN INCREASED TO 1 WHOLE TABLET TWICE DAILY Clobetasol Propionate/Emoll 15 Gm Cream..g., TP DAILY, (Reported) Dulaglutide 0.75 Mg/0.5 Ml Pen.injctr, 0.75 MG SQ We, (Reported) Fenofibrate Nanocrystallized 145 Mg Tablet, 145 MG PO DAILY, (Reported) LAST FILLED FROM [facility] 06-21-18 #90 Flaxseed Oil 1,000 Mg Capsule, 1,000 MG PO DAILY, (Reported) Fluticasone Propionate 16 Gm [place].susp, 1 SPRAY NS DAILY PRN for ALLERGIES, (Reported) Hydrochlorothiazide 25 Mg Tablet, 25 MG PO DAILY, (Reported) LAST FILLED FROM [facility] 07-[facility] #90 Insulin Aspart 100 Unit/1 Ml Susp, 1-4 UNIT SQ BID PRN for BLOOD SUGAR ABOVE 2 50, (Reported) TESTS BLOOD SUGAR MORNING AND EVENING AND TAKES LANTUS, IF BLOOD SUGAR IS ABOVE 250 HE WILL USE THE SLIDING SCALE NOVOLOG ALONG WITH IT Insulin Glargine,Hum.rec.anlog 100 Unit/1 Ml Vial, 65 UNIT SQ HS, (Reported) LAST FILLED FROM [facility] J[facility]E 2018 Insulin Glargine,Hum.rec.anlog 100 Unit/1 Ml Vial, 45 UNIT SQ DAILY, (Reported) LAST FILLED FROM [facility] J[facility]E 2018 Rosuvastatin Calcium 40 Mg Tablet, 40 MG PO HS, (Reported) Patient Home Medication List Home Medication List Reviewed: Yes Review of Systems Review of Systems Constitutional: see HPI; No chills, No fever Respiratory: see HPI, phlegm, short of breath Cardiovascular: see HPI, edema All Other Systems Reviewed Negative Unless Noted: Yes Past Lmloqbg-Pmftot-Slzypc Hx Patient Social History Alcohol Use: Denies Use Recreational Drug Use: No Smoking Status: Current Everyday Smoker Type Used: Cigarettes Recent Foreign Travel: No Contact w/Someone Who Travel: No Recent Infectious Disease Expo: No Recent Hopitalizations: No Immunizations Up To Date Date of Pneumonia Vaccine: Apr 07, 2015 Date of Influenza Vaccine: Mar 30, 2018 Seasonal Allergies Seasonal Allergies: Yes Past Medical History Surgeries: Yes (skin ca removed, TURP, TURBT) Bladder Surgery, Prostatectomy Respiratory: No Cardiac: Yes (stents in leg) Coronary Artery Disease, Hypertension Neurological: Yes TIA Genitourinary: Yes Benign Prostatic Hyperpl, Prostate Problems Gastrointestinal: No Musculoskeletal: Yes Arthritis Endocrine: Yes Diabetes, Insulin dep HEENT: Yes (cataracts removed, dentures) Cancer: Yes Bladder, Prostate, Skin What Type of Treatment Did You: Surgical Intervention Psychosocial: No Integumentary: Yes (poison waqas on L arm) Psoriasis Blood Disorders: No Family Medical History Alcoholism G8 BROTHER Diabetes mellitus G8 SISTER FH: lymphoma Myocardial infarction G8 SISTER No Pertinent Family Hx Physical Exam Vital Signs Vital Signs - First Documented 04/06/20 12:09 Temp 36.4 Pulse 94 Resp 22 B/P (MAP) 189/110 (136) Pulse Ox 92 O2 Delivery Room Air Capillary Refill : Less Than 3 Seconds Height, Weight, BMI Height: 5'8.00" Weight: 186lbs. 0.0oz. 84.345911dh; 29.00 BMI Method:Stated General Appearance: No Apparent Distress, WD/WN HEENT: PERRL/EOMI, TMs Normal, Normal ENT Inspection, Pharynx Normal Neck: Full Range of Motion, Normal Inspection, Non Tender, Supple Respiratory: Chest Non Tender, Lungs Clear, Normal Breath Sounds, No Accessory Muscle Use, No Respiratory Distress Cardiovascular: Regular Rate, Rhythm, No Edema, No Gallop, No JVD, No Murmur, Normal Peripheral Pulses Gastrointestinal: Normal Bowel Sounds, No Organomegaly, No Pulsatile Mass, Non Tender, Soft Extremity: Normal Capillary Refill, Pedal Edema (2 +) Neurologic/Psychiatric: Alert, Oriented x3, Normal Mood/Affect Skin: Normal Color, Warm/Dry Progress/Results/Core Measures Suspected Sepsis Recent Fever Within 48 Hours: No Infection Criteria Present: None New/Unexplained Altered Menta: No Sepsis Screen: No Definite Risk SIRS Temperature: Pulse: 94 Respiratory Rate: 22 Laboratory Tests 04/06/20 12:20: White Blood Count 9.8 Blood Pressure 189 /110 Mean: 136 Laboratory Tests 04/06/20 12:20: Creatinine 1.84H, INR Comment 0.9, Platelet Count 200, Total Bilirubin 0.2 Results/Orders Lab Results Laboratory Tests Test 04/06/20 12:20 04/06/20 13:37 Range/Units White Blood Count 9.8 4.3-11.0 10^3/uL Red Blood Count 5.85 H 4.30-5.52 10^6/uL Hemoglobin 17.0 13.3-17.7 g/dL Hematocrit 53 40-54 % Mean Corpuscular Volume 91 80-99 fL Mean Corpuscular Hemoglobin 29 25-34 pg Mean Corpuscular Hemoglobin Concent 32 32-36 g/dL Red Cell Distribution Width 14.6 H 10.0-14.5 % Platelet Count 200 130-400 10^3/uL Mean Platelet Volume 11.9 9.0-12.2 fL Immature Granulocyte % (Auto) 0 % Neutrophils (%) (Auto) 74 42-75 % Lymphocytes (%) (Auto) 17 12-44 % Monocytes (%) (Auto) 8 0-12 % Eosinophils (%) (Auto) 1 0-10 % Basophils (%) (Auto) 1 0-10 % Neutrophils # (Auto) 7.3 1.8-7.8 10^3/uL Lymphocytes # (Auto) 1.6 1.0-4.0 10^3/uL Monocytes # (Auto) 0.8 0.0-1.0 10^3/uL Eosinophils # (Auto) 0.1 0.0-0.3 10^3/uL Basophils # (Auto) 0.1 0.0-0.1 10^3/uL Immature Granulocyte # (Auto) 0.0 0.0-0.1 10^3/uL Prothrombin Time 13.0 12.2-14.7 SEC INR Comment 0.9 0.8-1.4 Activated Partial Thromboplast Time 26 24-35 SEC Sodium Level 138 135-145 MMOL/L Potassium Level 4.6 3.6-5.0 MMOL/L Chloride Level 108 H 98-107 MMOL/L Carbon Dioxide Level 17 L 21-32 MMOL/L Anion Gap 13 5-14 MMOL/L Blood Urea Nitrogen 26 H 7-18 MG/DL Creatinine 1.84 H 0.60-1.30 MG/DL Estimat Glomerular Filtration Rate 36 BUN/Creatinine Ratio 14 Glucose Level 317 H 70-105 MG/DL Calcium Level 8.5 8.5-10.1 MG/DL Corrected Calcium 9.5 8.5-10.1 MG/DL Magnesium Level 2.1 1.6-2.4 MG/DL Total Bilirubin 0.2 0.1-1.0 MG/DL Aspartate Amino Transf (AST/SGOT) 21 5-34 U/L Alanine Aminotransferase (ALT/SGPT) 18 0-55 U/L Alkaline Phosphatase 105 40-136 U/L Myoglobin 267.9 H 10.0-92.0 NG/ML Troponin I 0.234 H <0.028 NG/ML B-Type Natriuretic Peptide 2348.7 H <100.0 PG/ML Total Protein 5.4 L 6.4-8.2 GM/DL Albumin 2.8 L 3.2-4.5 GM/DL Procalcitonin 0.17 H <0.10 NG/ML Urine Color YELLOW Urine Clarity CLEAR Urine pH 6.0 5-9 Urine Specific [place] >=1.030 1.016-1.022 Urine Protein 3+ H NEGATIVE Urine Glucose (UA) 3+ H NEGATIVE Urine Ketones NEGATIVE NEGATIVE Urine Nitrite NEGATIVE NEGATIVE Urine Bilirubin 1+ H NEGATIVE Urine Urobilinogen 0.2 < = 1.0 MG/DL Urine Leukocyte Esterase NEGATIVE NEGATIVE Urine RBC (Auto) 3+ H NEGATIVE Urine RBC 10-25 H /HPF Urine WBC 25-50 H /HPF Urine Squamous Epithelial Cells RARE /HPF Urine Crystals NONE /LPF Urine Bacteria TRACE /HPF Urine Casts PRESENT /LPF Urine Hyaline Casts 25-50 H /LPF Urine Mucus NEGATIVE /LPF Urine Culture Indicated YES My Orders Orders - MARÍA LAN Ua Culture If Indicated (04/06/20 12:13) BNP (04/06/20 12:18) Furosemide Injection (Lasix Injection) (04/06/20 13:30) Procalcitonin (Pct) (04/06/20 13:21) Urine Culture (04/06/20 13:37) Vital Signs/I&O 04/06/20 04/06/20 12:09 13:44 Temp 36.4 Pulse 94 97 Resp 22 18 B/P (MAP) 189/110 (136) 189/102 Pulse Ox 92 98 O2 Delivery Room Air Capillary Refill : Less Than 3 Seconds Blood Pressure Mean: 136 Progress Note : Time: 13:38 Progress Note I discussed laboratory and imaging findings with patient and he agrees with plans for admission. I discussed the case with Dr. Nina and Dr. Souza and they both agree for admission. Dr. Nina recommends Lasix 40 mg IV twice a day. Lovenox 1 mg/kg daily. Aspirin [address] Johnson well watch for the calcitonin level to determine whether he wants to start antibiotics for infiltrate seen on chest x-ray versus heart failure. Departure Communication (Admissions) Time/Spoke to Admitting Phy: 13:20 Harley Time/Spoke to Consulting Phy: 13:10 Kelle Impression Primary Impression: CHF (congestive heart failure) Additional Impression: Elevated troponin Disposition: ADMITTED INPATIENT Condition: Stable/Unchanged Admissions Decision to Admit Reason: Admit from ER (General) Decision to Admit/Date: Apr 06, 2020 Time/Decision to Admit Time: 13:41 Departure-Patient Inst. Referrals: JANET SANDHU MD (PCP/Family) Primary Care Physician MARÍA LAN Apr 06, 2020 13:07
[2020-04-06] MEDS ORDERED: FUROSEMIDE 40 MG/4 ML INJ (LASIX) IVP ONE (13:30)
[2020-04-06 13:43] LABS: CLARITY,URINE CLEAR; COLOR,URINE YELLOW; GLUCOSE, URINE (UA) 3+ (NEGATIVE); KETONES,URINE NEGATIVE (NEGATIVE); LEUKOCYTE ESTERASE ,URINE NEGATIVE (NEGATIVE); NITRITE,URINE NEGATIVE (NEGATIVE); PROTEIN,URINE 3+ (NEGATIVE)
[2020-04-06 13:55] LABS: BACTERIA,URINE TRACE /HPF; BILIRUBIN,URINE 1+ (NEGATIVE); SQUAMOUS EPITHELIAL CELL,UR RARE /HPF; WBC,URINE 25-50 /HPF
[2020-04-06 13:56] LABS: HYALINE CASTS, URINE 25-50 /LPF
[2020-04-06] MEDS ORDERED: CATHETER FLUSH 10 ML SYR IV PRN (14:15)
--- NOTE | 2020-04-06 14:16 | NUR ---
SURINDER HSU admitted to room 414-1, with an admitting diagnosis of CHF, on 04/06/20 from [place] via wheelchair, accompanied by staff.SURINDER HSU introduced to surroundings, call light, bed controls, phone, TV, temperature control, lights, meal times, smoking policy, visitor policy, side rail policy, bathrooms and showers. Patient Rights given to patient in the handbook. SURINDER HSU verbalizes understanding that [facility] is not responsible for the loss or damage to any personal effects or valuables that are kept in the patients posession during their hospitalization. The following Patient Care Plans were discussed with the pt: Discharge Planning. SURINDER HSU verbalizes understanding of Interdisciplinary Patient Education. Patient and/or family were informed about the Rapid Response Team and its purpose.
[2020-04-06] MEDS ORDERED: ENOXAPARIN 100 MG/1 ML (LOVENOX) SYR SC SCH (14:30)
[2020-04-06 14:32] VITALS: BP 183/117
[2020-04-06] MEDS ORDERED: amLODIPine 5 MG (NORVASC) TAB PO NR (15:00)
[2020-04-06] MEDS ORDERED: FLU QUAD HIGH DOSE 240 MCG/0.7 ML 2020-21 (FLUZONE) IM ONE (15:30)
[2020-04-06] MEDS ORDERED: ONDANSETRON 4 MG (ZOFRAN) ORAL DISSOLVE TAB PO PRN (15:45)
[2020-04-06] MEDS ORDERED: ONDANSETRON 4 MG/2 ML (SDV) Z0FRAN IV PRN (15:45)
[2020-04-06] MEDS ORDERED: BISACODYL 10 MG SUPP (DULCOLAX) PR PRN (15:45)
[2020-04-06] MEDS ORDERED: ANTACID SUSP 30 ML UDC (MYLANTA) PO PRN (15:45)
[2020-04-06] MEDS ORDERED: MELATONIN 3 MG TABLET PO PRN (15:45)
[2020-04-06] MEDS ORDERED: polyethylene glycoL POWDER 17 GM (MIRALAX) PACK PO PRN (15:45)
[2020-04-06] MEDS ORDERED: ACETAMINOPHEN 325 MG TABLET PO PRN (15:45)
[2020-04-06] MEDS ORDERED: hydrALAZINE (APRESOLINE) 25 MG TAB PO PRN (15:45)
[2020-04-06] MEDS ORDERED: diphenhydrAMINE 25 MG TAB (BENADRYL) PO PRN (15:45)
[2020-04-06 16:00] VITALS: BP 178/100
[2020-04-06] MEDS ORDERED: inSUlin ASPART (NovoLOG) 1 UNIT/0.01 ML (CHARGE PER UNIT) SC SCH (16:00)
[2020-04-06 16:10] VITALS: BP 189/110
[2020-04-06] MEDS ORDERED: ASPI-1238 PO (16:28)
[2020-04-06] MEDS ORDERED: AMLO-251 PO (16:28)
--- NOTE | 2020-04-06 16:29 | NUR ---
SPOKE WITH THE PT AND CALLED THE [facility] TO ENTER THE MED REC ALL OF THE PTS MEDICATIONS ARE PAST DUE AND SOME HAVE FILL DATES FROM 2019 (IN A PREVIOUSLY NOTE FROM KHADRA Mata WHEN SHE WAS ENTERING IN A PTS PREOP MEDICATION LIST, SHE NOTED AT THE TIME PT WAS SAYING HE HAD BUILT UP A STOCK OF MEDICATIONS). I HAVE INCLUDED THE MEDICATIONS THE PT SAYS HE IS TAKING ALONG WITH THE FILL DATES ON THE MED REC. LANTUS VIALS CRESTOR 40MG TRULICITY FENOFIBRATE 145MG HCTZ 25MG AMLODIPINE 10MG (DIRECTIONS ARE TAB DAILY) OTC MEDS: ASPIRIN FLAX SEED OIL
[2020-04-06] MEDS: cefTRIAXone FOR IV USE 2,000 MG in WATER (STERILE) FOR INJECTION 20 ML IV SCH (16:54)
[2020-04-06] MEDS: inSUlin ASPART (NovoLOG) 1 UNIT/0.01 ML (CHARGE PER UNIT) SC SCH ×3 (16:54→20:26)
[2020-04-06] MEDS ORDERED: RT-ALBUTEROL/IPRATROPIUM 3 ML (DUONEB) VIAL INH PRN (17:00)
[2020-04-06] MEDS: RT-ALBUTEROL/IPRATROPIUM 3 ML (DUONEB) VIAL INH SCH (19:20)
[2020-04-06 20:00] VITALS: BP 153/80
[2020-04-06] MEDS: FUROSEMIDE 40 MG/4 ML INJ (LASIX) IV SCH (20:25)
[2020-04-06] MEDS: CARVEDILOL 6.25 MG (COREG) TAB PO SCH (20:26)
[2020-04-06] MEDS: SENNOSIDES 8.6 MG (SENOKOT) TAB PO SCH (20:26)
[2020-04-06] MEDS: DOCUSATE SODIUM 100 MG (COLACE) CAP PO SCH (20:26)
[2020-04-06] MEDS: CATHETER FLUSH 10 ML SYR IV SCH (20:27)
[2020-04-07] VITALS (7 sets, daily range): BP systolic 130–186; BP diastolic 64–90
[2020-04-07] MEDS: RT-ALBUTEROL/IPRATROPIUM 3 ML (DUONEB) VIAL INH SCH ×4 (02:32→19:30)
[2020-04-07 05:07] LABS: BASOPHILS # (AUTO) 0.1 10^3/uL (0.0-0.1); BASOPHILS % (AUTO) 1 % (0-10); EOSINOPHILS # (AUTO) 0.1 10^3/uL (0.0-0.3); EOSINOPHILS % (AUTO) 1 % (0-10); HEMATOCRIT 53 % (40-54); LYMPHOCYTES # (AUTO) 1.5 X 10^3 (1.0-4.0); LYMPHOCYTES % (AUTO) 15 % (12-44); MEAN CORPUSCULAR HEMOGLOBIN 28 PG (25-34); MEAN CORPUSCULAR HGB CONC 32 G/DL (32-36); MEAN CORPUSCULAR VOLUME 89 FL (80-99); MEAN PLATELET VOLUME 11.8 FL (7.4-10.4); MONOCYTES # (AUTO) 0.6 X 10^3 (0.0-1.0); MONOCYTES % (AUTO) 6 % (0-12); NEUTROPHILS % (AUTO) 78 % (42-75); PLATELET COUNT 222 10^3/uL (130-400); WHITE BLOOD COUNT 10.3 10^3/uL (4.3-11.0)
[2020-04-07 05:24] LABS: BILIRUBIN,TOTAL 0.2 MG/DL (0.1-1.0); CALCIUM 8.5 MG/DL (8.5-10.1); CREATININE SERUM 1.67 MG/DL (0.60-1.30); POTASSIUM 3.7 MMOL/L (3.6-5.0)
[2020-04-07 05:25] LABS: ALBUMIN 2.8 GM/DL (3.2-4.5); TOTAL PROTEIN 5.7 GM/DL (6.4-8.2)
--- NOTE | 2020-04-07 06:54 | NUR ---
0526: Lab contacted this RN with patients critical blood glucose level of 42, and critical troponin level of 0.320. This RN entered patients room, patient woke easily from sleep and denied pain or any other symptoms. 0534: This RN contacted Dr. Nina and informed him of current troponin level of 0.320 and last troponin level of 0.234 at 1200 on 04/06/20. Also informed him of patients blood glucose level of 42 and he approved initiation of hypoglycemic protocol. No new orders at this time. 0540: This RN gave patient 2 pkg rodney crackers and 4 oz orange juice per "mild reaction" hypoglycemia protocol. Patient ate entirety of snack, tolerated well. 0611: Finger stick blood sugar 54. Per protocol this RN gave patient 1 pkg rodney crackers and 4 oz ice cream, patient ate entirety of snack, tolerated well. 0654: Finger stick blood sugar 79. Per protocol this RN gave patient 2 pkg cheese, patient ate entirety of snack, tolerated well.
[2020-04-07] MEDS: inSUlin ASPART (NovoLOG) 1 UNIT/0.01 ML (CHARGE PER UNIT) SC SCH ×8 (07:40→21:07)
[2020-04-07] MEDS: FUROSEMIDE 40 MG/4 ML INJ (LASIX) IV SCH ×2 (08:15→17:52)
[2020-04-07] MEDS: CLOPIDOGREL 75 MG (PLAVIX) TABLET PO SCH (08:16)
[2020-04-07] MEDS: PANTOPRAZOLE 40 MG (PROTONIX) TAB PO SCH (08:17)
[2020-04-07] MEDS: SENNOSIDES 8.6 MG (SENOKOT) TAB PO SCH ×2 (08:17→20:04)
[2020-04-07] MEDS: DOCUSATE SODIUM 100 MG (COLACE) CAP PO SCH ×2 (08:17→20:04)
[2020-04-07] MEDS: amLODIPine 10 MG (NORVASC) TAB PO SCH (08:17)
[2020-04-07] MEDS: CARVEDILOL 6.25 MG (COREG) TAB PO SCH (08:17)
[2020-04-07] MEDS: ASPIRIN 81 MG CHEW (CHILDREN'S ASA) PO SCH (08:17)
[2020-04-07] MEDS: CATHETER FLUSH 10 ML SYR IV SCH ×3 (08:18→21:08)
[2020-04-07] MEDS ORDERED: amLODIPine 5 MG (NORVASC) TAB PO SCH (09:00)
[2020-04-07] MEDS: ENOXAPARIN 100 MG/1 ML (LOVENOX) SYR SC SCH ×2 (11:10→21:08)
--- NOTE | 2020-04-07 11:11 | Consultation-Cardiology ---
HPI-Cardiology Cardiology Consultation Date of Consultation 04/07/20 Date of Admission Time Seen by Provider: 09:00 Indication: Dyspnea, elevated troponin HPI Patient is a 75 y/o male with history of CAD, CHF, HTN, HLP. Presented to the ER with complaints of increased dyspnea for the past 2 weeks. Reports he stopped taking his medications a few weeks ago d/t having difficulty swallowing his pills. Denies any chest pain. Reports BLE peripheral edema. Denies any claudication pain or nonhealing wounds. No other complaints at this time. Home Medications & Allergies Allergies: Coded Allergies: lisinopril (Verified Allergy, Unknown, renal failure, 01/21/19) metformin (Verified Allergy, Unknown, renal failure, 01/21/19) Home Medication List Reviewed: Yes DYE-Rrtdkh-Qwcgjd Hx Patient Social History Marital Status: single Alcohol Use: Denies Use Recreational Drug Use: No Smoking Status: Current Everyday Smoker Type Used: Cigarettes Recent Foreign Travel: No Recent Infectious Disease Expo: No Recent Hopitalizations: No Immunizations Up To Date Date of Pneumonia Vaccine: Apr 07, 2015 Date of Influenza Vaccine: Mar 30, 2018 Past Medical History CAD, CHF, HTN, HLP Family Medical History Significant Family History: No Pertinent Family Hx Family History: Alcoholism G8 BROTHER Diabetes mellitus G8 SISTER FH: lymphoma Myocardial infarction G8 SISTER Review of Systems-General Review of Systems Constitutional: see HPI; No chills, No fever; malaise EENTM: see HPI, no symptoms reported; No blurred vision, No double vision Respiratory: see HPI, phlegm, short of breath Cardiovascular: see HPI; No chest pain; edema, Hx of Intervention; No palpitations Gastrointestinal: No constipation, No nausea Genitourinary: No dysuria, No frequency Musculoskeletal: No back pain Skin: No lesions All Other Systems Reviewed Negative Unless Noted: Yes Reviewed Test Results Reviewed Test Results Lab Laboratory Tests 04/06/20 12:20: White Blood Count 9.8, Red Blood Count 5.85H, Hemoglobin 17.0, Hematocrit 53, Mean Corpuscular Volume 91, Mean Corpuscular Hemoglobin 29, Mean Corpuscular Hemoglobin Concent 32, Red Cell Distribution Width 14.6H, Platelet Count 200, Mean Platelet Volume 11.9, Immature Granulocyte % (Auto) 0, Neutrophils (%) (Auto) 74, Lymphocytes (%) (Auto) 17, Monocytes (%) (Auto) 8, Eosinophils (%) (Auto) 1, Basophils (%) (Auto) 1, Neutrophils # (Auto) 7.3, Lymphocytes # (Auto) 1.6, Monocytes # (Auto) 0.8, Eosinophils # (Auto) 0.1, Basophils # (Auto) 0.1, Immature Granulocyte # (Auto) 0.0, Prothrombin Time 13.0, INR Comment 0.9, Acti vated Partial Thromboplast Time 26, Sodium Level 138, Potassium Level 4.6, Chloride Level 108H, Carbon Dioxide Level 17L, Anion Gap 13, Blood Urea Nitrogen 26H, Creatinine 1.84H, Estimat Glomerular Filtration Rate 36, BUN/Creatinine Ratio 14, Glucose Level 317H, Calcium Level 8.5, Corrected Calcium 9.5, Magnesium Level 2.1, Total Bilirubin 0.2, Aspartate Amino Transf (AST/SGOT) 21, Alanine Aminotransferase (ALT/SGPT) 18, Alkaline Phosphatase 105, Myoglobin 267.9H, Troponin I 0.234H, B-Type Natriuretic Peptide 2348.7H, Total Protein 5.4L, Albumin 2.8L, Procalcitonin 0.17H 04/06/20 13:37: Urine Color YELLOW, Urine Clarity CLEAR, Urine pH 6.0, Urine Specific [place] >=1.030, Urine Protein 3+H, Urine Glucose (UA) 3+H, Urine Ketones NEGATIVE, Ur ine Nitrite NEGATIVE, Urine Bilirubin 1+H, Urine Urobilinogen 0.2, Urine Leukocyte Esterase NEGATIVE, Urine RBC (Auto) 3+H, Urine RBC 10-25H, Urine WBC 25-50H, Urine Squamous Epithelial Cells RARE, Urine Crystals NONE, Urine Bacteria TRACE, Urine Casts PRESENT, Urine Hyaline Casts 25-50H, Urine Mucus NEGATIVE, Urine Culture Indicated YES 04/06/20 14:15: Coronavirus 2019 (SIVAKUMAR) Negative 04/06/20 16:48: Glucometer 329H 04/06/20 20:02: Glucometer 159H 04/07/20 04:30: White Blood Count 10.3, Red Blood Count 5.97H, Hemoglobin 17.0, Hematocrit 53, Mean Corpuscular Volume 89, Mean Corpuscular Hemoglobin 28, Mean Corpuscular Hemoglobin Concent 32, Red Cell Distribution Width 14.4, Platelet Count 222, Mean Platelet Volume 11.8H, Immature Granulocyte % (Auto) 0, Neutrophils (%) (Auto) 78H, Lymphocytes (%) (Auto) 15, Monocytes (%) (Auto) 6, Eosinophils (%) (Auto) 1, Basophils (%) (Auto) 1, Neutrophils # (Auto) 8.0H, Lymphocytes # (Auto) 1.5, Monocytes # (Auto) 0.6, Eosinophils # (Auto) 0.1, Basophils # (Auto) 0.1, Immature Granulocyte # (Auto) 0.0, Sodium Level 138, Potassium Level 3.7, Chloride Level 105, Carbon Dioxide Level 20L, Anion Gap 13, Blood Urea Nitrogen 24H, Creatinine 1.67H, Estimat Glomerular Filtration Rate 40, BUN/Creatinine Ratio 14, Glucose Level 42*L, Calcium Level 8.5, Corrected Calcium 9.5, Total Bilirubin 0.2, Aspartate Amino Transf (AST/SGOT) 22, Alanine Aminotransferase (ALT/SGPT) 16, Alkaline Phosphatase 91, Troponin I 0.320*H, Total Protein 5.7L, Albumin 2.8L, Triglycerides Level 157H, Cholesterol Level 226H, LDL Cholesterol Direct 162H, VLDL Cholesterol 31, HDL Cholesterol 45, Procalcitonin 0.16H 04/07/20 06:11: Glucometer 54*L 04/07/20 06:53: Glucometer 79 ECG Impression ECG Initial ECG Rhythm: Normal Sinus Physical Exam Physical Exam Vital Signs Vital Signs - First Documented 04/06/20 04/06/20 12:09 16:10 Temp 36.4 Pulse 94 Resp 22 B/P (MAP) 189/110 (136) Pulse Ox 92 O2 Delivery Room Air FiO2 21 Capillary Refill : Less Than 3 Seconds Height, Weight, BMI Height: 5'8.00" Weight: 186lbs. 0.0oz. 84.960218hb; 29.40 BMI Method:Stated General Appearance: No Apparent Distress, WD/WN HEENT: PERRL/EOMI, TMs Normal, Normal ENT Inspection, Pharynx Normal Neck: Full Range of Motion, Normal Inspection, Non Tender, Supple Respiratory: Chest Non Tender, No Accessory Muscle Use, No Respiratory Distress, Other (diminished bs ) Cardiovascular: Regular Rate, Rhythm, No Gallop, No JVD, No Murmur, Normal Peripheral Pulses, Other (+1 edema BLE) Gastrointestinal: Normal Bowel Sounds, No Organomegaly, No Pulsatile Mass, Non Tender, Soft Extremity: Normal Capillary Refill, Pedal Edema (2 +) Neurologic/Psychiatric: Alert, Oriented x3, Normal Mood/Affect Skin: Normal Color, Warm/Dry A/P-Cardiology Admission Diagnosis Dyspnea Elevated troponin CAD CHF Assessment/Plan Increased dyspnea, likely AE CHF, patient reports he has not taking his medications for the last couple of weeks. Continue to diurese. I will evaluate 2D Echo Congestive heart failure, acute on chronic left ventricular systolic dysfunction, probably ischemic in nature, ejection fraction 35-40 percent. Started on diuretics. Continue to monitor tolerance and response Mildly elevated troponin, likely type II [place] secondary to CHF. EKG showing no acute ST changes, denies any chest pain, planning to repeat troponin in the morning Peripheral arterial disease, underwent complex intervention on the right lower extremity in 2017 with 2 stent deployment self-expanding Innova 7 time 100 proximally and six-time 80 distally with excellent results. Total occlusion below the knee, attempt to intervene on it without success, patient was referred to Dr. Solis where he underwent peripheral angiogram on October 31, 2016 with attempted unsuccessful recannulization of right tibioperoneal trunk. Recomme nded continuing with conservative management. Congestive heart failure, ischemic cardiomyopathy, ejection fraction 30 percent per 2D Echo done 2017. Most recent EF 50 percent per cardiac catheterization done in August [address] Solis. Has been noncompliant with his medications at home recently. I will evaluate 2D Echo. 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 Dominant artery, reconstructed by collaterals. Severe stenosis at the mid circumflex artery and long segment of stenosis in the proximal LAD. EF 30 percent. Patient was sent for evaluation for possible bypass surgery. He was evaluated by Dr. Dale Thomas. Thought to be high risk for bypass secondary to being high risk for infectious complications given his active psoriasis all over his body. Patient is also poorly compliant with his diabetes and risk factor modification. Underwent cardiac catheterization 2 was staged intervention by Dr. Solis on August 29, 2016 and September 05, 2016 with 2.520 mm Promus drug-eluting stent deployed to the proximal left circumflex artery. Patient also had 2.2516 mm Promus drug- eluting stent to the mid LAD, and 2.2516 mm Promus drug-eluting stent to the diagonal with good results. No recent workup was done, we'll consider stress test once patient is more clinically stable as an outpatient Renal artery stenosis, underwent right renal artery stenting by Dr. Solis on October 31, 2016. Continue to monitor. 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 History of multiple TIAs. Source was not identified. Maintained on aspirin. Mild bilateral carotid stenosis, ultrasound was done in April 2016. Continue to monitor Hypertension, restart home blood pressure medications and continue to monitor. Hyperlipidemia, evaluate lipid profile. Diabetes mellitus, followed and managed by primary care physician Lisha, still an active smoker working on smoking cessation, discussed and left smoking cessation History of psoriasis. History of renal failure, improved, continue to monitor renal function closely. History of bladder CA. Has been cancer free for 3 years. Followed at the [place] Thank you for allowing us to participate in the management of Mr. Alexander. This is Belinda Maradiaga PA-C, as a scribe for Dr. Nina. Patient was seen and evaluated with Belinda, examination performed, management plan was discussed, agree with the current scribed note, I made few changes to the note using Italic font Patient was laying in bed. No new complaint, troponin is mildly elevated, probably type II myocardial infarctions secondary to congestive heart failure, had extensive coronary artery disease which could be progressive. No recent workup, noncompliant with medication. Will monitor troponin trend and planning to repeat in the morning, will consider stress testing as an outpatient, if he started to have chest pain or had trended elevation in troponin will consider cardiac catheterization Clinical Quality Measures DVT/VTE Risk/Contraindication: Risk Factor Score Per Nursin RFS Level Per Nursing on Admit: 3=High BELINDA CARRILLO Apr 07, 2020 11:11 SALOME NINA MD Apr 07, 2020 15:09
--- NOTE | 2020-04-07 12:33 | History & Physical-Hospitalist ---
History of Present Illness HPI/Chief Complaint Marcos Alexander is a 75-year-old male with past medical history of hypertension, uncontrolled diabetes, hyperlipidemia, coronary artery disease, history of TIAs, heart failure with reduced ejection fraction, psoriasis, who presented with shortness of breath. He reports that his breathing troubles been slowly worsening over the recent weeks. He reports that he has been having swelling in his legs. He denies any chest pain. He denies any palpitations. He denies any fevers. He has had a cough. He has reportedly not been taking his medications. Source: patient Exam Limitations: no limitations Date Seen 04/07/20 Time Seen by a Provider: 09:35 Attending Physician Juan Daniel Castillo MD PCP Dhaval Liang MD Referring Physician Date of Admission Apr 06, 2020 at 13:20 Home Medications & Allergies Home Medications Reviewed patient Home Medication Reconciliation performed by pharmacy medication reconciliations surgical instrument technician and/or nursing. Patients Allergies have been reviewed. Allergies Allergies Coded Allergies lisinopril (Verified Allergy, Unknown, renal failure, 01/21/19) metformin (Verified Allergy, Unknown, renal failure, 01/21/19) Past Lqremef-Rknxik-Ejrlmg Hx Past Med/Social Hx: Reviewed Nursing Past Med/Soc Hx Patient Social History Marrital Status: single Alcohol Use: Denies Use Recreational Drug Use: No Smoking Status: Current Everyday Smoker Type Used: Cigarettes Recent Foreign Travel: No Contact w/other who traveled: No Recent Hopitalizations: No Recent Infectious Disease Expo: No Immunizations Up To Date Date of Pneumonia Vaccine: Apr 07, 2015 Date of Influenza Vaccine: Mar 30, 2018 Seasonal Allergies Seasonal Allergies: Yes Past Medical History Surgeries: Bladder Surgery, Prostatectomy Cardiac: Coronary Artery Disease, Hypertension Neurological: TIA Genitourinary: Benign Prostatic Hyperpl, Prostate Problems Musculoskeletal: Arthritis Endocrine: Diabetes, Insulin dep Cancer: Bladder, Prostate, Skin What Type of Treatment Did You: Surgical Intervention Skin/Integumentary: Psoriasis History of Blood Disorders: No Family History Alcoholism G8 BROTHER Diabetes mellitus G8 SISTER FH: lymphoma Myocardial infarction G8 SISTER No Pertinent Family Hx Review of Systems Constitutional: no symptoms reported EENTM: no symptoms reported Respiratory: cough, short of breath Cardiovascular: no symptoms reported Gastrointestinal: no symptoms reported Genitourinary: no symptoms reported Musculoskeletal: no symptoms reported Skin: no symptoms reported Psychiatric/Neurological: No Symptoms Reported Physical Exam Physical Exam Vital Signs Vital Signs - First Documented 04/06/20 04/06/20 12:09 16:10 Temp 36.4 Pulse 94 Resp 22 B/P (MAP) 189/110 (136) Pulse Ox 92 O2 Delivery Room Air FiO2 21 Capillary Refill : Less Than 3 Seconds Height, Weight, BMI Height: 5'8.00" Weight: 186lbs. 0.0oz. 84.650336an; 29.40 BMI Method:Stated General Appearance: No Apparent Distress, WD/WN HEENT: PERRL/EOMI, Pharynx Normal Neck: Normal Inspection, Supple Respiratory: Lungs Clear, Normal Breath Sounds, No Respiratory Distress Cardiovascular: Regular Rate, Rhythm, No Murmur Gastrointestinal: Normal Bowel Sounds, Non Tender, Soft Extremity: Normal Inspection, Non Tender, Pedal Edema Neurologic/Psychiatric: Alert, Oriented x3, No Motor/Sensory Deficits, Normal Mood/Affect Skin: Rash (diffuse dry skin patches, psoriatic) Results Results/Procedures Labs Laboratory Tests 04/06/20 12:20 04/07/20 04:30 Patient resulted labs reviewed. Imaging: Reviewed Imaging Report Assessment/Plan Admission Diagnosis Acute on chronic heart failure with reduced ejection fraction Admission Status: Inpatient Order (span 2 midnights) Reason for Inpatient Admission: Heart failure requiring IV diuresis Assessment and Plan Acute on chronic heart failure with reduced ejection fraction BNP elevated CXR with congestion Cardiology consutled, appreciate assistance Sergio Obtain echocardiogram NSTEMI, type 2 CAD Troponin elevated 0.23, repeat 0.32 Continue aspirin and plavix UTI UA consistent with UTI Urine culture pending Rocephin T2DM with hyperglycemia Levemir Novolog with meals SSI HLD Statin Psoriasis Clinically significant, no acute management needs DVT Prophylaxis: Lovenox Diagnosis/Problems Diagnosis/Problems (1) Acute on chronic HFrEF (heart failure with reduced ejection fraction) Status: Acute (2) NSTEMI (non-ST elevation myocardial infarction) Status: Acute (3) UTI (urinary tract infection) Status: Acute (4) HTN (hypertension) Status: Chronic Qualifiers: Hypertension type: essential hypertension Qualified Codes: I10 - Essential (primary) hypertension (5) T2DM (type 2 diabetes mellitus) Status: Chronic Qualifiers: Diabetes mellitus terminal make up operator insulin use: with terminal make up operator use Diabetes mellitus complication status: with hyperglycemia Qualified Codes: E11.65 - Type 2 diabetes mellitus with hyperglycemia; Z79.4 - superintendent terminal (current) use of insulin (6) HLD (hyperlipidemia) Status: Chronic (7) Psoriasis Status: Chronic (8) CAD (coronary artery disease) Status: Chronic Clinical Quality Measures DVT/VTE Risk/Contraindication: Risk Factor Score Per Nursin RFS Level Per Nursing on Admit: 3=High JUAN DANIEL CASTILLO MD Apr 07, 2020 12:33
--- NOTE | 2020-04-07 13:21 | NUR ---
RD ASSESSMENT PMHx: CAD; HTN; BPH; DM; CA(blader,prostate,skin) PT INTERACTION: Pt was awake and pleasant during nutrition assessment. Pt states current appetite is getting better, as it had been poor for the last 2w. Note PO intake 100% x1meal, per chart review. Pt states trying to follow a low-CHO diet at home, and has no issues with chewing/swallowing food. Pt states some recent issues with constipation and diarrhea. Note last BM was 04/06, and pt currently on bowel regimen of colace BID; and senna BID; per chart review. Pt states unsure of recent wt changes. Note unable to determine recent wt hx, per chart review. Pt states current DM management as "doing alright." When asked about how he managed with PO intake, pt stated he just puts things together and eats. Note unable to determine recent HbA1c, per chart review. ABNORMAL NUTRITION-RELATED LAB VALUES LOW: HIGH: BUN 24; cr 1.67; TG 157; chol 226; LDL 162 Est. kcal needs: 1750 kcal | 20 kcal/kg Est. Pro needs: 70 g Pro | 0.8 g Pro/kg PES STATEMENT: Given current PO intake, no nutrition diagnosis at this time (NO-1.1) INTERVENTION: Continue with current diet order of CHO 60g/m 3snack diet. Discussed and provided diet education on DM management. Discussed portion control, CHO counting, and fiber intake. Pt verbalized understanding of information provided. Will attempt to follow-up with pt prior to discharge. Will continue to follow and reassess as pt needs, intake, and status change. Zhang Snell, MS RD LD
[2020-04-07] MEDS: cefTRIAXone FOR IV USE 2,000 MG in WATER (STERILE) FOR INJECTION 20 ML IV SCH (17:52)
[2020-04-07] MEDS ORDERED: PETROLATUM JELLY(VASELINE) 49 GM JAR TOP PRN (19:00)
[2020-04-07] MEDS: CARVEDILOL 12.5 MG (COREG) TABLET PO SCH (20:04)
[2020-04-07] MEDS ORDERED: CARVEDILOL 6.25 MG (COREG) TAB PO SCH (21:00)
[2020-04-08] MEDS: RT-ALBUTEROL/IPRATROPIUM 3 ML (DUONEB) VIAL INH SCH ×2 (03:57→08:32)
[2020-04-08 04:08] VITALS: BP 155/76
[2020-04-08 05:19] LABS: POTASSIUM 3.8 MMOL/L (3.6-5.0)
[2020-04-08 05:21] LABS: CALCIUM 8.4 MG/DL (8.5-10.1)
[2020-04-08 05:25] LABS: CREATININE SERUM 1.74 MG/DL (0.60-1.30)
[2020-04-08 05:27] LABS: MAGNESIUM 1.7 MG/DL (1.6-2.4)
[2020-04-08] MEDS: FUROSEMIDE 40 MG/4 ML INJ (LASIX) IV SCH (06:05)
[2020-04-08] MEDS: inSUlin ASPART (NovoLOG) 1 UNIT/0.01 ML (CHARGE PER UNIT) SC SCH ×2 (06:06→11:17)
[2020-04-08] MEDS: CATHETER FLUSH 10 ML SYR IV SCH (06:06)
[2020-04-08 08:00] VITALS: BP 159/74
--- NOTE | 2020-04-08 08:37 | Cardiology Progress Note ---
Subjective Date Seen by Provider: Apr 08, 2020 Time Seen by Provider: 08:35 Subjective/Events-last exam Patient is sitting up in chair, no new complaints. Denies any chest pain, states dyspnea is improving. Review of Systems General: No Chills, No Night Sweats, No Fatigue, No Malaise, No Appetite, No Other HEENT: No Head Aches, No Visual Changes, No Eye Pain, No Ear Pain, No Dysphasia, No Sinus Congestion, No Post Nasal Drip, No Sore Throat, No Other Pulmonary: No Dyspnea, No Cough, No Pleuritic Chest Pain, No Other Cardiovascular: No: Chest Pain, Palpitations, Orthopnea, Paroxysmal Noc. Dyspnea, Edema, Lt Headedness, Other Objective-Cardiology Exam Last Set of Vital Signs Vital Signs 04/07/20 04/08/20 02:32 08:00 Temp 36.0 Pulse 76 Resp 20 B/P (MAP) 159/74 (102) Pulse Ox 93 O2 Delivery Room Air FiO2 21 Capillary Refill : Less Than 3 Seconds I&O Intake and Output 04/08/20 00:00 Intake Total 2040 ml Balance 2040 ml Intake Oral 2040 ml # Voids 11 # Bowel Movements 1 General: Alert, Oriented X3, Cooperative HEENT: Atraumatic, PERRLA Neck: Supple, No JVD, No Thyromegaly Lungs: Clear to Auscultation, Normal Air Movement Heart: Regular Rate, Normal S1, Normal S2, No Murmurs Abdomen: Normal Bowel Sounds, Soft, No Tenderness, No Hepatosplenomegaly, No Masses Extremities: No Clubbing, No Cyanosis, Normal Pulses, No Tenderness/Swelling, Other (+1 edema BLE) Skin: Other (psoriasis) Neuro: Normal Speech, Cranial Nerves 3-12 NL Results Lab Laboratory Tests 04/08/20 04:55 A/P-Cardiology Admission Diagnosis Dyspnea Elevated troponin CAD CHF Assessment/Plan Congestive heart failure, acute on chronic left ventricular systolic dysfunction, probably ischemic in nature, ejection fraction 35-40 percent. Started on diuretics. Continue to monitor tolerance and response Mildly elevated troponin, likely type II RI secondary to CHF. EKG showing no acute ST changes, denies any chest pain. Peripheral arterial disease, underwent complex intervention on the right lower extremity in 2016 with 2 stent deployment self-expanding Innova 7 time 100 pro ximally and six-time 80 distally with excellent results. Total occlusion below the knee, attempt to intervene on it without success, patient was referred to Dr. Solis where he underwent peripheral angiogram on October 31, 2016 with attempted unsuccessful recannulization of right tibioperoneal trunk. Recommended continuing with conservative management. 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 Dominant artery, reconstructed by collaterals. Severe stenosis at the mid circumflex artery and long segment of stenosis in the proximal LAD. EF 30 percent. Patient was sent for evaluation for possible bypass surgery. He was evaluated by Dr. Dale Thomas. Thought to be high risk for bypass secondary to being high risk for infectious complications given his active psoriasis all over his body. Patient is also poorly compliant with his diabetes and risk factor modification. Underwent cardiac catheterization 2 was staged intervention by Dr. Solis on August 29, 2016 and September 05, 2016 with 2.520 mm Promus drug-eluting stent deployed to the proximal left circumflex artery. Patient also had 2.2516 mm Promus drug- eluting stent to the mid LAD, and 2.2516 mm Promus drug-eluting stent to the diagonal with good results. Renal artery stenosis, underwent right renal artery stenting by Dr. Solis on October 31, 2016. Continue to monitor. 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 History of multiple TIAs. Source was not identified. Maintained on aspirin. Mild bilateral carotid stenosis, ultrasound was done in April 2016. Continue to monitor Hypertension, restart home blood pressure medications and continue to monitor. Hyperlipidemia, evaluate lipid profile. Diabetes mellitus, followed and managed by primary care physician Lisha, still an active smoker working on smoking cessation, discussed and left smoking cessation History of psoriasis. History of renal failure, improved, continue to monitor renal function closely. History of bladder CA. Has been cancer free for 3 years. Followed at the [place] Patient was seen and evaluated with Belinda, examination performed, management plan was discussed, agree with the current scribed note, I made few changes to the note using Italic font Patient is feeling better, reporting improvement Educated in length about compliance with medication I recommend follow-up as an outpatient, will consider stress test versus cardiac catheterization in the future Okay for discharge from cardiology standpoint Clinical Quality Measures DVT/VTE Risk/Contraindication: Risk Factor Score Per Nursin RFS Level Per Nursing on Admit: 3=High BELINDA CARRILLO Apr 08, 2020 8:37 am SALOME RUTHERFORD MD Apr 08, 2020 8:38 am
[2020-04-08] MEDS: SENNOSIDES 8.6 MG (SENOKOT) TAB PO SCH (09:00)
[2020-04-08] MEDS: amLODIPine 10 MG (NORVASC) TAB PO SCH (09:25)
[2020-04-08] MEDS: CLOPIDOGREL 75 MG (PLAVIX) TABLET PO SCH (09:25)
[2020-04-08] MEDS: PANTOPRAZOLE 40 MG (PROTONIX) TAB PO SCH (09:25)
[2020-04-08] MEDS: CARVEDILOL 12.5 MG (COREG) TABLET PO SCH (09:25)
[2020-04-08] MEDS: DOCUSATE SODIUM 100 MG (COLACE) CAP PO SCH (09:25)
[2020-04-08] MEDS: ASPIRIN 81 MG CHEW (CHILDREN'S ASA) PO SCH (09:25)
[2020-04-08] MEDS: ENOXAPARIN 100 MG/1 ML (LOVENOX) SYR SC SCH (09:26)
[2020-04-08 12:00] VITALS: BP 163/78
[2020-04-08] MEDS ORDERED: CARV12.53 PO (12:07)
[2020-04-08] MEDS ORDERED: CLOP75TA28 PO (12:07)
[2020-04-08] MEDS ORDERED: FURO-125 PO (12:07)
[2020-04-08] MEDS ORDERED: INSU100V6 SQ (12:07)
--- NOTE | 2020-04-08 12:17 | Discharge Summary ---
Discharge Summary Hospital Course Was the Problem List Reviewed?: Yes Problems/Dx: (1) Acute on chronic HFrEF (heart failure with reduced ejection fraction) Status: Acute (2) NSTEMI (non-ST elevation myocardial infarction) Status: Acute (3) HTN (hypertension) Status: Chronic Qualifiers: Qualified Codes: I10 - Essential (primary) hypertension (4) T2DM (type 2 diabetes mellitus) Status: Chronic Qualifiers: Qualified Codes: E11.65 - Type 2 diabetes mellitus with hyperglycemia; Z79.4 - assistant manager trainee (current) use of insulin (5) HLD (hyperlipidemia) Status: Chronic (6) Psoriasis Status: Chronic (7) CAD (coronary artery disease) Status: Chronic Hospital Course Date of Admission: Apr 06, 2020 at 13:20 Admission Diagnosis : Acute on chronic heart failure with reduced ejection fraction Family Physician/Provider: Dhaval Liang MD Date of Discharge: 04/08/20 Discharge Diagnosis: Acute on chronic heart failure with reduced ejection fraction Hospital Course: Marcos Alexander is a 75-year-old male with past medical history of hypertension, hyperlipidemia, type II diabetes mellitus on insulin, coronary artery disease, peripheral arterial disease, heart failure, who presented with shortness of breath and was admitted with acute on chronic heart failure with reduced ejection fraction. He was started on IV Lasix and diuresed well. He was started on Coreg. He had been nonadherent with his medications at home. He reports that he had been having difficulty swallowing, but at the time of his hospitalization that had resolved. His course was complicated by an elevated troponin which was thought to be a type II NSTEMI related to heart failure. He also had some issues with hypoglycemia and his insulin regimen was decreased significantly. His UA was concerning for a UTI, but his urine culture appeared to be contaminated and he remained asymptomatic. His psoriasis also appears to be not well controlled as he has been off of his medication for the past couple months. He should follow-up with his primary care physician in about a week and discuss restarting a medication for his psoriasis. He should follow-up with Dr. Nina in about 2 weeks to follow up on his heart failure. Labs and Pending Lab Test: Laboratory Tests 04/07/20 15:37: Glucometer 74 04/07/20 20:31: Glucometer 74 04/08/20 04:35: Troponin I 0.375*H 04/08/20 04:55: Sodium Level 136, Potassium Level 3.8, Chloride Level 101, Carbon Dioxide Level 24, Anion Gap 11, Blood Urea Nitrogen 27H, Creatinine 1.74H, Estimat Glomerular Filtration Rate 39, BUN/Creatinine Ratio 16, Glucose Level 59*L, Calcium Level 8.4L, Magnesium Level 1.7 04/08/20 07:30: Glucometer 97 04/08/20 10:49: Glucometer 133H Microbiology 04/06/20 Urine Culture - Final, Complete Gram Pos Mixed Bacterial Kristy Home Meds Active Lasix (Furosemide) 20 Mg Tablet 20 Mg PO DAILY 30 Days Carvedilol 12.5 Mg Tablet 12.5 Mg PO BID 30 Days Clopidogrel (Clopidogrel Bisulfate) 75 Mg Tablet 75 Mg PO DAILY 30 Days Lantus (Insulin Glargine,Hum.rec.anlog) 100 Unit/1 Ml Vial 20 Unit SQ DAILY 30 Days LAST FILLED FROM [facility] SEPTEMBER 2019 Reported Aspirin EC (Aspirin) 81 Mg Tablet.dr 81 Mg PO DAILY Amlodipine Besylate 10 Mg Tablet 5 Mg PO DAILY TAKES OF A 10 MG TAB Trulicity (Dulaglutide) 0.75 Mg/0.5 Ml Pen.injctr 0.75 Mg SQ WE LAST FILLED FROM [facility] JUN 2019 Rosuvastatin Calcium 40 Mg Tablet 40 Mg PO HS LAST FILLED FROM [facility] SEPTEMBER 2019 #90 Fenofibrate (Fenofibrate Nanocrystallized) 145 Mg Tablet 145 Mg PO DAILY LAST FILLED FROM [facility] 06-21-18 #90 Flaxseed Oil 1,000 Mg Capsule 1,000 Mg PO DAILY Hydrochlorothiazide 25 Mg Tablet 25 Mg PO DAILY LAST FILLED FROM [facility] 07-21-18 #90 Assessment/Pt Instructions Take medications as prescribed. Stop hydrochlorothiazide. Begin taking Lasix. Begin Coreg. Your insulin dose has been decreased to 20 units daily. Follow-up with your primary care physician in about a week. Follow-up with Dr. Nina in about 2 weeks. Return with worsening shortness of breath or if you feel like you're getting worse. Discharge Planning: <30 minutes discharge planning Discharge Instructions Discharge Diet: ADA Diet Activity as Tolerated: Yes Consultations Cardiology Discharge Physical Examination Vital Signs Vital Signs Date Time Temp Pulse Resp B/P (MAP) Pulse Ox O2 Delivery O2 Flow Rate FiO2 04/08/20 09:00 Room Air 04/08/20 08:00 36.0 76 20 159/74 (102) 93 10/28/20 02:32 21 General Appearance: No Apparent Distress, WD/WN Respiratory: Lungs Clear, Normal Breath Sounds, No Respiratory Distress Cardiovascular: Regular Rate, Rhythm, No Murmur Gastrointestinal: Normal Bowel Sounds, Non Tender, Soft Extremity: Normal Inspection, Pedal Edema Skin: Rash (psoriatic lesions diffusely) Neurologic/Psychiatric: Alert, Oriented x3, No Motor/Sensory Deficits, Normal Mood/Affect Allergies: Coded Allergies: lisinopril (Verified Allergy, Unknown, renal failure, 01/21/19) metformin (Verified Allergy, Unknown, renal failure, 01/21/19) Copy Copies To 1: SALOME NINA MD Discharge Summary Date of Admission Apr 06, 2020 at 13:20 Date of Discharge Discharge Date: Apr 08, 2020 Discharge Time: 12:15 Admission Diagnosis Acute on chronic heart failure with reduced ejection fraction Discharge Diagnosis Acute on chronic heart failure with reduced ejection fraction (1) Acute on chronic HFrEF (heart failure with reduced ejection fraction) Status: Acute (2) NSTEMI (non-ST elevation myocardial infarction) Status: Acute (3) HTN (hypertension) Status: Chronic Qualifiers: Qualified Codes: I10 - Essential (primary) hypertension (4) T2DM (type 2 diabetes mellitus) Status: Chronic Qualifiers: Qualified Codes: E11.65 - Type 2 diabetes mellitus with hyperglycemia; Z79.4 - assistant manager trainee (current) use of insulin (5) HLD (hyperlipidemia) Status: Chronic (6) Psoriasis Status: Chronic (7) CAD (coronary artery disease) Status: Chronic Clinical Quality Measures DVT/VTE Risk/Contraindication: Risk Factor Score Per Nursin RFS Level Per Nursing on Admit: 3=High JUAN DANIEL CASTILLO MD Apr 08, 2020 12:14
--- NOTE | 2020-04-08 13:06 | NUR ---
Initial spiritual Care visit provided by Safety TrainerATA Cherry. Pt reportedly shared feeling sense of personal wellbeing.
[2020-04-08 14:11] VITALS: BP 163/78
== END 2020-04-08 14:11 | disposition home or self-care (01) | DRG 281 ==
LOC: EDUNIT# 11:36 → ER 11:37 → 4TH 13:20
PROVIDERS: ADMIT Internal Medicine; ATTEND Internal Medicine
DX: I11.0 Hypertensive heart disease with heart failure (principal); I21.A1 Myocardial infarction type 2; N39.0 Urinary tract infection, site not specified; I50.23 Acute on chronic systolic (congestive) heart failure; E11.65 Type 2 diabetes mellitus with hyperglycemia; I25.10 Atherosclerotic heart disease of native coronary artery without angina pectoris; I25.82 Chronic total occlusion of coronary artery; I25.5 Ischemic cardiomyopathy; I73.9 Peripheral vascular disease, unspecified; Z20.828 Contact with and (suspected) exposure to other viral communicable diseases; F17.210 Nicotine dependence, cigarettes, uncomplicated; E78.5 Hyperlipidemia, unspecified; J30.2 Other seasonal allergic rhinitis; M19.91 Primary osteoarthritis, unspecified site; I65.23 Occlusion and stenosis of bilateral carotid arteries; N40.0 Benign prostatic hyperplasia without lower urinary tract symptoms; L40.9 Psoriasis, unspecified; Z95.5 Presence of coronary angioplasty implant and graft; Z91.128 Patient's intentional underdosing of medication regimen for other reason; Z79.4 Long term (current) use of insulin; Z85.46 Personal history of malignant neoplasm of prostate; Z85.51 Personal history of malignant neoplasm of bladder; Z85.828 Personal history of other malignant neoplasm of skin; Z95.828 Presence of other vascular implants and grafts; Z79.82 Long term (current) use of aspirin; Z89.421 Acquired absence of other right toe(s); Z23 Encounter for immunization
CPT/HCPCS: 36415; 71045; 80048; 80053; 80061; 81000; 82962; 83036; 83735; 83874; 83880; 84145; 84484; 85025; 85027; 85610; 85730; 87088; 87635; 90662; 93041; 93306; 94640; 94760

== ENCOUNTER 2020-04-20 14:36 | Inpatient (IN) | payer OTHER ==
[~2020-04-20] VITALS: Ht 172 cm; Wt 89.6 kg
[~2020-04-20 14:36] MED LIST changes: +AMLO-251 PO; +ASPI-1238 PO; +CLOP75TA28 PO; +FURO-125 PO
[2020-04-20 14:59] LABS: BASOPHILS % (AUTO) 0 % (0-10); EOSINOPHILS % (AUTO) 0 % (0-10); HEMATOCRIT 55 % (40-54); HEMOGLOBIN 17.3 g/dL (13.3-17.7); LYMPHOCYTES # (AUTO) 1.2 10^3/uL (1.0-4.0); LYMPHOCYTES % (AUTO) 10 % (12-44); MEAN CORPUSCULAR HEMOGLOBIN 29 pg (25-34); MEAN CORPUSCULAR HGB CONC 31 g/dL (32-36); MEAN CORPUSCULAR VOLUME 92 fL (80-99); MEAN PLATELET VOLUME 11.9 fL (9.0-12.2); MONOCYTES # (AUTO) 0.5 10^3/uL (0.0-1.0); MONOCYTES % (AUTO) 4 % (0-12); NEUTROPHILS # (AUTO) 10.2 10^3/uL (1.8-7.8); NEUTROPHILS % (AUTO) 85 % (42-75); PLATELET COUNT 235 10^3/uL (130-400)
[2020-04-20] MEDS ORDERED: NS IV 500 ML 500 ML IV SCH (15:00)
[2020-04-20] MEDS ORDERED: NITROGLYCERIN 0.4 MG SL TABS BTL 25'S SL PRN (15:00)
[2020-04-20 15:10] LABS: CLARITY,URINE CLEAR; COLOR,URINE YELLOW; GLUCOSE, URINE (UA) 3+ (NEGATIVE); KETONES,URINE TRACE (NEGATIVE); LEUKOCYTE ESTERASE ,URINE NEGATIVE (NEGATIVE); NITRITE,URINE NEGATIVE (NEGATIVE); PROTEIN,URINE 3+ (NEGATIVE)
[2020-04-20 15:12] LABS: PROTHROMBIN TIME PATIENT 13.9 SEC (12.2-14.7)
[2020-04-20 15:16] LABS: BILIRUBIN,TOTAL 0.3 MG/DL (0.1-1.0); CALCIUM 8.8 MG/DL (8.5-10.1); CREATININE SERUM 1.65 MG/DL (0.60-1.30); MAGNESIUM 2.4 MG/DL (1.6-2.4); TOTAL PROTEIN 6.1 GM/DL (6.4-8.2)
--- NOTE | 2020-04-20 15:31 | ED General ---
General Chief Complaint: Respiratory Problems Stated Complaint: WEAKNESS Nursing Triage Note: PT ARRIVED PER [facility], PT WAS FOUND ON FLOOR OF TRAILOR. PT VERY DIRTY, HAS PSORISIS ALL OVER, O2 SAT 94% ON 6L O2. B/P 202/118. PT IS ALERT STATES FELL ON FLOOR AND WAS UNABLE TO GET UP, STATES FELL YEST AM. CO OF LOW BACK PAIN FROM FALL. Nursing Sepsis Screen: No Definite Risk Source of Information: Patient Exam Limitations: No Limitations History of Present Illness Date Seen by Provider: Apr 20, 2020 Time Seen by Provider: 15:28 Initial Comments To ER by [facility] with reports weakness. Patient was found on the floor of his trailer. A report that the house was cluttered and essentially unlivable given the degree of filth in the house. Patient states that he fell yesterday and has been on the floor since then as he was unable to get up. He has a history of congestive heart failure for which he was admitted last month. Per EMS blood pressure was 210/110. He denies chest pain but does report shortness of breath. He does not wear oxygen at home and is requiring oxygen supplemental at 6 L to keep saturation of 94%. He has distended jugular veins, respiratory crackles and wheezing on the left upon arrival to ER. Timing/Duration: 1-2 Days Severity: Moderate Associated Systoms: Weakness Allergies and Home Medications Allergies Coded Allergies: lisinopril (Verified Allergy, Unknown, renal failure, 01/21/19) metformin (Verified Allergy, Unknown, renal failure, 01/21/19) Home Medications Amlodipine Besylate 10 Mg Tablet, 5 MG PO DAILY, (Reported) TAKES OF A 10 MG TAB Aspirin 81 Mg Tablet.dr, 81 MG PO DAILY, (Reported) Carvedilol 12.5 Mg Tablet, 12.5 MG PO BID Prescribed by: JUAN DANIEL CASTILLO on 04/08/20 120 Clopidogrel Bisulfate 75 Mg Tablet, 75 MG PO DAILY Prescribed by: JUAN DANIEL CASTILLO on 04/08/20 120 Dulaglutide 0.75 Mg/0.5 Ml Pen.injctr, 0.75 MG SQ We, (Reported) LAST FILLED FROM CT JUN 2019 Fenofibrate Nanocrystallized 145 Mg Tablet, 145 MG PO DAILY, (Reported) LAST FILLED FROM CT 06-21-18 #90 Flaxseed Oil 1,000 Mg Capsule, 1,000 MG PO DAILY, (Reported) Furosemide 20 Mg Tablet, 20 MG PO DAILY Prescribed by: JUAN DANIEL CASTILLO on 04/08/20 120 Insulin Glargine,Hum.rec.anlog 100 Unit/1 Ml Vial, 20 UNIT SQ DAILY LAST FILLED FROM CT SEPTEMBER 2019 Prescribed by: JUAN DANIEL CASTILLO on 04/08/20 120 Rosuvastatin Calcium 40 Mg Tablet, 40 MG PO HS, (Reported) LAST FILLED FROM CT SEPTEMBER 2019 #90 Patient Home Medication List Home Medication List Reviewed: Yes Review of Systems Review of Systems Constitutional: see HPI; No chills, No fever EENTM: see HPI Respiratory: see HPI, short of breath Cardiovascular: see HPI; No chest pain; edema; No syncope Genitourinary: no symptoms reported Musculoskeletal: no symptoms reported Skin: no symptoms reported Psychiatric/Neurological: No Symptoms Reported Hematologic/Lymphatic: No Symptoms Reported Immunological/Allergic: no symptoms reported Past Rkiuklt-Crjvqi-Yejuvi Hx Patient Social History Alcohol Use: Denies Use Recreational Drug Use: No Smoking Status: Current Everyday Smoker Type Used: Cigarettes Recent Foreign Travel: No Contact w/Someone Who Travel: No Recent Infectious Disease Expo: No Recent Hopitalizations: No Physical Abuse: No Sexual Abuse: No Immunizations Up To Date Date of Pneumonia Vaccine: Apr 07, 2015 Date of Influenza Vaccine: Mar 30, 2018 Seasonal Allergies Seasonal Allergies: Yes Past Medical History Surgeries: Yes (skin ca removed, TURP, TURBT) Bladder Surgery, Prostatectomy Respiratory: No Cardiac: Yes (stents in leg) Coronary Artery Disease, Hypertension Neurological: Yes TIA Genitourinary: Yes Benign Prostatic Hyperpl, Prostate Problems Gastrointestinal: No Musculoskeletal: Yes Arthritis Endocrine: Yes Diabetes, Insulin dep HEENT: Yes (cataracts removed, dentures) Cancer: Yes Bladder, Prostate, Skin What Type of Treatment Did You: Surgical Intervention Psychosocial: No Integumentary: Yes (poison waqas on L arm) Psoriasis Blood Disorders: No Family Medical History Alcoholism G8 BROTHER Diabetes mellitus G8 SISTER FH: lymphoma Myocardial infarction G8 SISTER No Pertinent Family Hx Physical Exam Vital Signs Vital Signs - First Documented 04/20/20 14:40 Temp 34.4 Pulse 80 Resp 18 B/P (MAP) 202/118 (146) Pulse Ox 94 O2 Delivery Nasal Cannula O2 Flow Rate 6.00 Capillary Refill : Less Than 3 Seconds Height, Weight, BMI Height: 5'8.00" Weight: 186lbs. 0.0oz. [id number]; 30.00 BMI Method:Stated General Appearance: No Apparent Distress, WD/WN, Chronically ill, Other (Lower extremities around the knees are covered in dirt and animal hair from where he has been crawling on the floor.) Eyes: Bilateral Eye Normal Inspection, Bilateral Eye PERRL, Bilateral Eye EOMI HEENT: Other (dry mucous membranes) Neck: Full Range of Motion, Normal Inspection, JVD Respiratory: No Accessory Muscle Use, Crackles, Wheezing Cardiovascular: Regular Rate, Rhythm, Normal Peripheral Pulses Gastrointestinal: No Pulsatile Mass, Non Tender, Soft Extremity: Normal Capillary Refill, Normal Inspection, Other (trace edema BLE) Neurologic/Psychiatric: Alert, Oriented x3 Skin: Normal Color, Warm/Dry, Other (diffuse psoriatic plaques) Comments Unable to obtain temperature so a rectal thermometer was inserted with a core temperature of 34.4 C. Progress/Results/Core Measures Suspected Sepsis Recent Fever Within 48 Hours: No Infection Criteria Present: None New/Unexplained Altered Menta: No Sepsis Screen: No Definite Risk SIRS Temperature: Pulse: 80 Respiratory Rate: 18 Laboratory Tests 04/20/20 14:45: White Blood Count 12.0H Blood Pressure 202 /118 Mean: 146 Laboratory Tests 04/20/20 14:45: Creatinine 1.65H, INR Comment 1.0, Platelet Count 235, Total Bilirubin 0.3 Results/Orders Lab Results Laboratory Tests Test 04/20/20 14:45 04/20/20 15:06 Range/Units White Blood Count 12.0 H 4.3-11.0 10^3/uL Red Blood Count 6.00 H 4.30-5.52 10^6/uL Hemoglobin 17.3 13.3-17.7 g/dL Hematocrit 55 H 40-54 % Mean Corpuscular Volume 92 80-99 fL Mean Corpuscular Hemoglobin 29 25-34 pg Mean Corpuscular Hemoglobin Concent 31 L 32-36 g/dL Red Cell Distribution Width 13.9 10.0-14.5 % Platelet Count 235 130-400 10^3/uL Mean Platelet Volume 11.9 9.0-12.2 fL Immature Granulocyte % (Auto) 1 % Neutrophils (%) (Auto) 85 H 42-75 % Lymphocytes (%) (Auto) 10 L 12-44 % Monocytes (%) (Auto) 4 0-12 % Eosinophils (%) (Auto) 0 0-10 % Basophils (%) (Auto) 0 0-10 % Neutrophils # (Auto) 10.2 H 1.8-7.8 10^3/uL Lymphocytes # (Auto) 1.2 1.0-4.0 10^3/uL Monocytes # (Auto) 0.5 0.0-1.0 10^3/uL Eosinophils # (Auto) 0.0 0.0-0.3 10^3/uL Basophils # (Auto) 0.0 0.0-0.1 10^3/uL Immature Granulocyte # (Auto) 0.1 0.0-0.1 10^3/uL Prothrombin Time 13.9 12.2-14.7 SEC INR Comment 1.0 0.8-1.4 Sodium Level 138 135-145 MMOL/L Potassium Level 5.0 3.6-5.0 MMOL/L Chloride Level 102 98-107 MMOL/L Carbon Dioxide Level 25 21-32 MMOL/L Anion Gap 11 5-14 MMOL/L Blood Urea Nitrogen 22 H 7-18 MG/DL Creatinine 1.65 H 0.60-1.30 MG/DL Estimat Glomerular Filtration Rate 41 BUN/Creatinine Ratio 13 Glucose Level 231 H 70-105 MG/DL Calcium Level 8.8 8.5-10.1 MG/DL Corrected Calcium 9.6 8.5-10.1 MG/DL Magnesium Level 2.4 1.6-2.4 MG/DL Total Bilirubin 0.3 0.1-1.0 MG/DL Aspartate Amino Transf (AST/SGOT) 26 5-34 U/L Alanine Aminotransferase (ALT/SGPT) 22 0-55 U/L Alkaline Phosphatase 85 40-136 U/L Total Creatine Kinase 276 H 30-200 U/L Troponin I 0.038 H <0.028 NG/ML B-Type Natriuretic Peptide 3045.9 H <100.0 PG/ML Total Protein 6.1 L 6.4-8.2 GM/DL Albumin 3.0 L 3.2-4.5 GM/DL Coronavirus 2019 (SIVAKUMAR) Negative Negative Urine Color YELLOW Urine Clarity CLEAR Urine pH 6.0 5-9 Urine Specific [place] 1.025 H 1.016-1.022 Urine Protein 3+ H NEGATIVE Urine Glucose (UA) 3+ H NEGATIVE Urine Ketones TRACE H NEGATIVE Urine Nitrite NEGATIVE NEGATIVE Urine Bilirubin 1+ H NEGATIVE Urine Urobilinogen 0.2 < = 1.0 MG/DL Urine Leukocyte Esterase NEGATIVE NEGATIVE Urine RBC (Auto) 3+ H NEGATIVE Urine RBC 2-5 H /HPF Urine WBC NONE /HPF Urine Crystals PRESENT H /LPF Urine Amorphous Sediment MOD LEAH URATES H /LPF Urine Bacteria TRACE /HPF Urine Casts PRESENT /LPF Urine Hyaline Casts 2-5 H /LPF Urine Mucus NEGATIVE /LPF Urine Culture Indicated NO My Orders Orders - LAKISHA GUDINO APRN Cbc With Automated Diff (04/20/20 14:50) Comprehensive Metabolic Panel (04/20/20 14:50) Protime With Inr (04/20/20 14:50) BNP (04/20/20 14:50) Troponin I (04/20/20 14:50) Ekg Tracing (04/20/20 14:50) Magnesium (04/20/20 14:50) Creatine Kinase (04/20/20 14:50) Chest 1 View, Ap/Pa Only (04/20/20 14:50) Ed Iv/Invasive Line Start (04/20/20 14:50) Covid 19 Inhouse Test (04/20/20 14:50) Ns Iv 500 Ml (Sodium Chloride 0.9%) (04/20/20 15:00) Ct Head/Cervical Spine Wo (04/20/20 14:50) Pelvis (04/20/20 14:50) Nitroglycerin 0.4 Mg Btl 25's (Nitrostat (04/20/20 15:00) Ua Culture If Indicated (04/20/20 14:56) Straight Cath (Urinary) (04/20/20 14:56) Bipap (Bilevel) Set Up (04/20/20 15:34) Procalcitonin (Pct) (04/20/20 16:20) Blood Culture (04/20/20 16:20) Lactic Acid Analyzer (04/20/20 16:20) Furosemide Injection (Lasix Injection) (04/20/20 16:30) Medications Given in ED Current Medications Medications Dose Ordered Sig/Benita Route Start Time Stop Time Status Last Admin Dose Admin Nitroglycerin 1 TAB Q 5 MIN X 3 NEEDED PRN SL 04/20/20 15:00 04/20/20 15:06 0.4 MG Vital Signs/I&O 04/20/20 04/20/20 14:40 15:50 Temp 34.4 Pulse 80 78 Resp 18 17 B/P (MAP) 202/118 (146) Pulse Ox 94 100 O2 Delivery Nasal Cannula O2 Flow Rate 6.00 100.00 Capillary Refill : Less Than 3 Seconds Blood Pressure Mean: 146 Diagnostic Imaging Diagonstic Imaging: CT Comments NAME: [facility] REC#: [id number] PT STATUS: REG ER : 1945 PHYSICIAN: LAKISHA GUDINO APRN ADMIT DATE: 04/20/20/ER Draft Date of Exam:04/20/20 CT HEAD/CERVICAL SPINE WO PROCEDURE: CT head and CT cervical spine without contrast. TECHNIQUE: Multiple contiguous axial images were obtained through the brain and cervical spine without the use of intravenous contrast. Sagittal and coronal reformations through the cervical spine were then performed. Auto Exposure Controls were utilized during the CT exam to meet ALARA standards for radiation dose reduction. INDICATION: Fall. Found down. COMPARISON: CT head without contrast 04/24/2016. FINDINGS: CT head: Age-indeterminate lacunar infarct in the right thalamus measuring approximately 0.5 cm is new since the 2016 exam. Moderate generalized cerebral and cerebellar parenchymal volume loss. Chronic-appearing infarct in the left cerebellum. No intracranial hemorrhage, mass effect, hydrocephalus or extra-axial fluid collections. Osseous structures are intact. Frothy secretions in the maxillary sinus on the right. The mastoids are clear. CT cervical spine: Minimal anterolisthesis of C5 on C6. Alignment is otherwise unremarkable. Vertebral body heights are preserved. No fractures. Large anterior osteophyte formation at C4-T1. No high-grade spinal canal stenosis is evident on soft tissue windows. Large bilateral pleural effusions are partially visualized. Mild atherosclerotic calcifications. IMPRESSION: 1. Subcentimeter lacunar infarct in the right thalamus is age indeterminate but new since 2016. This could be further investigated with MRI. 2. No acute CT findings in the cervical spine. 3. Partially visualized large-appearing bilateral pleural effusions. 4. Frothy secretions in the right maxillary sinus. Dictated on workstation # [id number] Dict: 04/20/20 1520 Trans: 04/20/20 1533 [facility] [id number] Interpreted by: PRISCILLA STEWART MD Electronically signed by: Departure Communication (Admissions) I spoke with Dr Castillo and Dr Hudson Impression Primary Impression: Acute on chronic HFrEF (heart failure with reduced ejection fraction) Additional Impression: Hypertensive urgency Disposition: ADMITTED INPATIENT Condition: Stable Admissions Decision to Admit Reason: Admit from ER (General) Decision to Admit/Date: Apr 20, 2020 Time/Decision to Admit Time: 16:36 Departure-Patient Inst. Referrals: JANET SANDHU MD (PCP/Family) Primary Care Physician LAKISHA GUDINO APRN Apr 20, 2020 15:30
--- NOTE | 2020-04-20 15:34 | Diagnostic Imaging Report ---
PROCEDURE: CT head and CT cervical spine without contrast. TECHNIQUE: Multiple contiguous axial images were obtained through the brain and cervical spine without the use of intravenous contrast. Sagittal and coronal reformations through the cervical spine were then performed. Auto Exposure Controls were utilized during the CT exam to meet ALARA standards for radiation dose reduction. INDICATION: Fall. Found down. COMPARISON: CT head without contrast 04/24/2016. FINDINGS: CT head: Age-indeterminate lacunar infarct in the right thalamus measuring approximately 0.5 cm is new since the 2016 exam. Moderate generalized cerebral and cerebellar parenchymal volume loss. Chronic-appearing infarct in the left cerebellum. No intracranial hemorrhage, mass effect, hydrocephalus or extra-axial fluid collections. Osseous structures are intact. Frothy secretions in the maxillary sinus on the right. The mastoids are clear. CT cervical spine: Minimal anterolisthesis of C5 on C6. Alignment is otherwise unremarkable. Vertebral body heights are preserved. No fractures. Large anterior osteophyte formation at C4-T1. No high-grade spinal canal stenosis is evident on soft tissue windows. Large bilateral pleural effusions are partially visualized. Mild atherosclerotic calcifications. IMPRESSION: 1. Subcentimeter lacunar infarct in the right thalamus is age indeterminate but new since 2016. This could be further investigated with MRI. 2. No acute CT findings in the cervical spine. 3. Partially visualized large-appearing bilateral pleural effusions. 4. Frothy secretions in the right maxillary sinus. Dictated by: Dictated on workstation # [id number]
--- NOTE | 2020-04-20 15:36 | Diagnostic Imaging Report ---
INDICATION: Patient found down, pelvic pain. TECHNIQUE: AP pelvis obtained at 03:20 p.m. FINDINGS: No fracture or acute bony abnormality is seen. There is [id number] degenerative change of both hip joints. Vascular stent seen overlying the right upper thigh. IMPRESSION: Chronic changes as described above with no acute abnormality of the bony pelvis. Dictated by: Dictated on workstation # [id number]
[2020-04-20 15:37] LABS: AMORPHOUS SEDIMENT,UR MOD AMOR URATES /LPF; BACTERIA,URINE TRACE /HPF; BILIRUBIN,URINE 1+ (NEGATIVE)
--- NOTE | 2020-04-20 15:37 | NUR ---
[place] BLANKET PUT ON PT TEMP 34.6
--- NOTE | 2020-04-20 15:39 | Diagnostic Imaging Report ---
CLINICAL INDICATION: Patient was found on the floor of [facility]. Patient with elevated blood pressure. Patient states he fell yesterday a.m. and was unable to get up. Patient has low back pain. EXAM: Portable chest x-ray upright view. COMPARISONS: Chest x-ray dated 04/06/2020. FINDINGS: There is blunting of both costophrenic angle regions concerning for small bilateral pleural effusions which has improved on the left side compared to prior study. There is no pneumothorax. There is mild diffuse airspace opacities throughout both lungs concerning for lung infiltrates. There is discoid atelectasis in right midlung field. There is cardiomegaly and mild pulmonary vascular congestion. There are hypertrophic spurs involving the thoracic spine. IMPRESSION: 1: There is cardiomegaly with mild pulmonary vascular congestion which can be seen with congestive heart failure. 2: There is mild bilateral lung airspace opacities which may be related to pulmonary congestion or lung infiltrate from pneumonia. 3: There are small bilateral pleural effusions which has improved on the left side compared to the prior study. Dictated by: Dictated on workstation # [id number]
[2020-04-20 15:50] VITALS: BP 186/108
[2020-04-20] MEDS ORDERED: FUROSEMIDE 40 MG/4 ML INJ (LASIX) IVP ONE (16:30)
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
[2020-04-20 18:36] VITALS: BP 112/71
[2020-04-20 21:00] VITALS: BP 140/72
[2020-04-20] MEDS: inSUlin ASPART (NovoLOG) 1 UNIT/0.01 ML (CHARGE PER UNIT) SC SCH (21:03)
[2020-04-20] MEDS: CARVEDILOL 12.5 MG (COREG) TABLET PO SCH (21:03)
--- NOTE | 2020-04-20 22:00 | NUR ---
THIS RN NOTIFIED OF PT'S B/P OF 186/102 AT 2150. THIS RN RECHECKED PT'S B/P WITH MANUAL CUFF AND OBTAINED READING OF 158/75. PT DENIES COMPLAINTS OF ANY PAIN OR DISCOMFORT AT THIS TIME.
[2020-04-21 00:30] VITALS: BP 158/85
[2020-04-21 04:00] VITALS: BP 145/88
[2020-04-21 04:43] LABS: BASOPHILS # (AUTO) 0.1 10^3/uL (0.0-0.1); BASOPHILS % (AUTO) 1 % (0-10); EOSINOPHILS # (AUTO) 0.1 10^3/uL (0.0-0.3); EOSINOPHILS % (AUTO) 1 % (0-10); HEMATOCRIT 51 % (40-54); HEMOGLOBIN 15.7 g/dL (13.3-17.7); LYMPHOCYTES # (AUTO) 1.5 10^3/uL (1.0-4.0); LYMPHOCYTES % (AUTO) 14 % (12-44); MEAN CORPUSCULAR HEMOGLOBIN 29 pg (25-34); MEAN CORPUSCULAR HGB CONC 31 g/dL (32-36); MEAN CORPUSCULAR VOLUME 92 fL (80-99); MEAN PLATELET VOLUME 12.9 fL (9.0-12.2); MONOCYTES # (AUTO) 0.7 10^3/uL (0.0-1.0); MONOCYTES % (AUTO) 6 % (0-12); NEUTROPHILS # (AUTO) 8.7 10^3/uL (1.8-7.8); NEUTROPHILS % (AUTO) 79 % (42-75); PLATELET COUNT 240 10^3/uL (130-400); WHITE BLOOD COUNT 11.1 10^3/uL (4.3-11.0)
[2020-04-21 05:02] LABS: ALBUMIN 2.6 GM/DL (3.2-4.5); POTASSIUM 4.4 MMOL/L (3.6-5.0)
[2020-04-21 05:03] LABS: CALCIUM 8.4 MG/DL (8.5-10.1)
[2020-04-21 05:06] LABS: BILIRUBIN,TOTAL 0.2 MG/DL (0.1-1.0)
[2020-04-21 05:08] LABS: CREATININE SERUM 1.9 MG/DL (0.60-1.30)
[2020-04-21] MEDS: inSUlin ASPART (NovoLOG) 1 UNIT/0.01 ML (CHARGE PER UNIT) SC SCH ×4 (07:07→20:55)
[2020-04-21] MEDS: FUROSEMIDE 40 MG/4 ML INJ (LASIX) IVP SCH ×2 (07:07→16:44)
[2020-04-21 08:15] VITALS: BP 158/82
[2020-04-21] MEDS: ENOXAPARIN 40 MG/0.4 ML (LOVENOX) SYR SC SCH (08:58)
[2020-04-21] MEDS: CARVEDILOL 12.5 MG (COREG) TABLET PO SCH ×3 (08:58→20:52)
[2020-04-21] MEDS ORDERED: KCL 10 MEQ TAB (MICRO K) PO SCH (09:00)
--- NOTE | 2020-04-21 09:34 | History & Physical ---
JENNIFER ALMARAZ MED STUDENT 04/21/20 0934: History of Present Illness History of Present Illness Reason for visit/HPI Pt is a 75y/o M who presented to the ED 04/20 after being found on the floor of his trailer - pt had been there for a day after falling. Past medical hx of congestive HF, PAD, CAD with multiple stent placements, T2DM, TIA, Bladder cancer post-resection, and psoriasis. Pt was wheezy with crackles and elevated JVD, BNP 04/20 was 3,045. Pt states he was admitted a couple weeks ago for CHF exacerbation. Pt denies chest pain. When asked why he fell, pt said he believes he tripped Vs any dizziness or syncope. Pt still has some wheezing today on PE. Pt has hypertensive urgency with BP of 202/118 in ED, has since stablized. Date of Admission Apr 20, 2020 at 16:23 Time Seen by a Provider: 09:00 I consulted on this patient on 04/21/20 09:26 Attending Physician Juan Daniel Castillo MD Admitting Physician Dhaval Liang MD Consult Allergies and Home Medications Allergies Coded Allergies: lisinopril (Verified Allergy, Unknown, renal failure, 01/21/19) metformin (Verified Allergy, Unknown, renal failure, 01/21/19) Home Medications Amlodipine Besylate 10 Mg Tablet, 5 MG PO DAILY, (Reported) TAKES OF A 10 MG TAB LAST FILLED APRIL 2019 #45/90 DAY SUPPLY Aspirin 81 Mg Tablet.dr, 81 MG PO DAILY, (Reported) Carvedilol 12.5 Mg Tablet, 12.5 MG PO BID, (Reported) Clopidogrel Bisulfate 75 Mg Tablet, 75 MG PO DAILY, (Reported) Dulaglutide 0.75 Mg/0.5 Ml Pen.injctr, 0.75 MG SQ We, (Reported) [facility] FILL[facility] Fenofibrate Nanocrystallized 145 Mg Tablet, 145 MG PO DAILY, (Reported) [facility]ST FILLED FROM [facility] 06-21-18 #90 Flaxseed Oil 1,000 Mg Capsule, 1,000 MG PO DAILY, (Reported) Furosemide 20 Mg Tablet, 20 MG PO DAILY, (Reported) Insulin Glargine,Hum.rec.anlog 100 Unit/1 Ml Vial, 20 UNIT SQ DAILY LAST FILLED FROM [facility] SEPT[facility]BER 2019 Prescribed by: JUAN DANIEL CASTILLO on 04/08/20 1207 Rosuvastatin Calcium 40 Mg Tablet, 40 MG PO HS, (Reported) LAST FILLED FROM [facility] SEPTEM[facility] 2019 #90 Past Koyiitg-Vokvlv-Fydoja Hx Patient Social History Alcohol Use: Denies Use Recreational Drug Use: No Smoking Status: Current Everyday Smoker Type Used: Cigarettes Recent Foreign Travel: No Contact w/other who traveled: No Recent Hopitalizations: No Recent Infectious Disease Expo: No Immunizations Up To Date Date of Pneumonia Vaccine: Mar 12, 2018 Date of Influenza Vaccine: Apr 08, 2020 Seasonal Allergies Seasonal Allergies: Yes Surgeries Yes (skin ca removed, TURP, TURBT) Bladder Surgery, Prostatectomy Respiratory No Cardiovascular Yes (stents in leg) Cardiomyopathy, Coronary Artery Disease, Hypertension, Peripheral Vascular Neurological Yes TIA Genitourinary Yes Benign Prostatic Hyperpl, Prostate Problems Gastrointestinal No Musculoskeletal Yes Degenerate Disk Disease, Arthritis Endocrine History of Endocrine Disorders: Yes Endocrine Disorders: Diabetes, Insulin dep HEENT History of HEENT Disorders: Yes (cataracts removed, dentures) Cancer Yes Bladder, Prostate, Skin Type of Treatment: Surgical Intervention Psychosocial History of Psychiatric Problem: No Integumentary History of Skin or Integumenta: Yes (poison waqas on L arm) Skin/Integumentary Disorders: Psoriasis Blood Transfusions History of Blood Disorders: No Family Medical History Significant Family History: No Pertinent Family Hx Family Hx: Alcoholism G8 BROTHER Diabetes mellitus G8 SISTER FH: lymphoma Myocardial infarction G8 SISTER Review of Systems Constitutional: No chills, No dizziness Respiratory: No cough, No phlegm Cardiovascular: No chest pain, No palpitations Gastrointestinal: No abdominal pain, No nausea, No vomiting Physical Exam Vital Signs Vital Signs - First Documented 04/20/20 04/20/20 14:40 21:00 Temp 34.4 Pulse 80 Resp 18 B/P (MAP) 202/118 (146) Pulse Ox 94 O2 Delivery Nasal Cannula O2 Flow Rate 6.00 FiO2 90 Capillary Refill : Less Than 3 Seconds Height, Weight, BMI Height: 5'8.00" Weight: 186lbs. 0.0oz. [id number]; 30.08 BMI Method:Stated General Appearance: No Apparent Distress, WD/WN Eyes: Bilateral Eye Normal Inspection, Bilateral Eye PERRL, Bilateral Eye EOMI HEENT: PERRL/EOMI Neck: Full Range of Motion, Normal Inspection Respiratory: Chest Non Tender, No Respiratory Distress, Crackles, Wheezing Cardiovascular: Regular Rate, Rhythm, No Murmur, Bradycardia, Other (+1/4 radial pulses ) Gastrointestinal: Normal Bowel Sounds, No Organomegaly, No Pulsatile Mass, Non Tender Rectal: Deferred Neurologic/Psychiatric: Alert, Oriented x3 Skin: Warm/Dry, Other (psoriais ) Assessment/Plan Assessment and Plan Acute Respiratory Distress Likely secondary to CHF exacerbation Vs pneumonia Vs ACS Acute on Chronic HFrEF Hx of severe ischemic cardiomyopathy with EF of 30-35%; systolic dysfunction. 04/20 CXR showed mild pulmonary vascular congestion with bilateral lower lobe opacities and mild bilateral pleural effusions. Continue IV loop diuretic at double pts home regiment. Continue Nitroglycerin Start Duoneb q 4 Repeat CXR today. Pt on BiPAP Pt was hospitalized 2 weeks ago for CHF exacerbation. Cardiology consulted, appreciate the recommendations. Unlikely Pneumonia Serial procalcitonin was 0.11 yesterday and 0.14 today. Order procalcitonin and follow serially T2DM Restart pts home insulin regiment at 25% dose reduction. Hold pts Dulaglutide. Add correction insulin if pts fasting glucose remains over 150. HTN Restart pts home medication regiment. CKD BUN and creatinine near pts baseline. Estimated GFR 35. BUN and creatinine elevated moderately today compared to 03/21, reduce lasix dose if this trend continues. DVT prophylaxis Start Lovenox Admission Diagnosis Admission Status: Inpatient Order (span 2 midnights) Reason for Inpatient Admission: CHF exacerbation Clinical Quality Measures DVT/VTE Risk/Contraindication: Risk Factor Score Per Nursin RFS Level Per Nursing on Admit: 4+=Very High JUAN DANIEL CASTILLO MD 04/21/20 1750: History of Present Illness History of Present Illness Date Seen by a Provider: Apr 21, 2020 Time Seen by a Provider: 10:30 Allergies and Home Medications Allergies Coded Allergies: lisinopril (Verified Allergy, Unknown, renal failure, 01/21/19) metformin (Verified Allergy, Unknown, renal failure, 01/21/19) Home Medications Amlodipine Besylate 10 Mg Tablet, 5 MG PO DAILY, (Reported) TAKES OF A 10 MG TAB LAST FILLED APRIL 2019 #45/90 DAY SUPPLY Aspirin 81 Mg Tablet.dr, 81 MG PO DAILY, (Reported) Carvedilol 12.5 Mg Tablet, 12.5 MG PO BID, (Reported) Clopidogrel Bisulfate 75 Mg Tablet, 75 MG PO DAILY, (Reported) Dulaglutide 0.75 Mg/0.5 Ml Pen.injctr, 0.75 MG SQ We, (Reported) [facility]ST [facility]ILL[facility] Fenofibrate Nanocrystallized 145 Mg Tablet, 145 MG PO DAILY, (Reported) [facility]ST [facility]ED [facility] 06[facility]21-18 #90 Flaxseed Oil 1,000 Mg Capsule, 1,000 MG PO DAILY, (Reported) Furosemide 20 Mg Tablet, 20 MG PO DAILY, (Reported) Insulin Glargine,Hum.rec.anlog 100 Unit/1 Ml Vial, 20 UNIT SQ DAILY LAST [facility]ILLED [facility] 2019 Prescribed by: JUAN DANIEL CASTILLO on 04/08/20 1207 Rosuvastatin Calcium 40 Mg Tablet, 40 MG PO HS, (Reported) LAST FILLED [facility]PT[facility] 2019 #90 Patient Home Medication List Home Medication List Reviewed: Yes Past Tiwnrzh-Hbplla-Fbaiba Hx Family Medical History Family Hx: Alcoholism G8 BROTHER Diabetes mellitus G8 SISTER FH: lymphoma Myocardial infarction G8 SISTER Assessment/Plan Assessment and Plan Admitted with acute on chronic heart failure with reduced ejection fraction. We will begin diuresis, assess response, and monitor renal function. He will likely need a placement on discharge and social work assistance is appreciated. Problems: (1) Acute on chronic HFrEF (heart failure with reduced ejection fraction) Status: Acute Admission Diagnosis acute on chronic heart failure with reduced ejection fraction Admission Status: Inpatient Order (span 2 midnights) Reason for Inpatient Admission: HF requring IV diuresis Supervisory-Addendum Brief Verification & Attestation Participated in pt care: history, MDM, physical Personally performed: exam, history, MDM, supervision of care Care discussed with: Medical Student Procedures: n/a Results interpretation: Verified all documentation Verification and Attestation of Medical Student E/M Service A medical student performed and documented this service in my presence. I reviewed and verified all information documented by the medical student and made modifications to such information, when appropriate. I personally performed the physical exam and medical decision making. Juan Daniel Castillo, Apr 21, 2020,17:51 JENNIFER ALMARAZ MED STUDENT Apr 21, 2020 09:34 JUAN DANIEL CASTILLO MD Apr 21, 2020 17:50
[2020-04-21] MEDS ORDERED: RT-ALBUTEROL/IPRATROPIUM 3 ML (DUONEB) VIAL ONE (11:16)
[2020-04-21] MEDS: RT-ALBUTEROL/IPRATROPIUM 3 ML (DUONEB) VIAL INH SCH ×4 (11:33→23:05)
[2020-04-21 11:41] VITALS: BP 152/88
--- NOTE | 2020-04-21 14:12 | Consultation-Cardiology ---
HPI-Cardiology Cardiology Consultation Date of Consultation 04/21/20 Date of Admission Time Seen by Provider: 14:08 Indication: coronary artery disease HPI 75 years old gentleman with history of coronary artery disease and congestive heart failure, peripheral arterial disease, was found on the floor by his daughter. Was having increasing shortness of breath which was worsening recently. Patient was noted to be hypotensive. Has been having dizzy spells. No passing out. Home Medications & Allergies Allergies: Coded Allergies: lisinopril (Verified Allergy, Unknown, renal failure, 01/21/19) metformin (Verified Allergy, Unknown, renal failure, 01/21/19) Home Medication List Reviewed: Yes UZX-Duaygn-Qzfzyo Hx Patient Social History Alcohol Use: Denies Use Recreational Drug Use: No Smoking Status: Current Everyday Smoker Type Used: Cigarettes Recent Foreign Travel: No Recent Infectious Disease Expo: No Recent Hopitalizations: No Immunizations Up To Date Date of Pneumonia Vaccine: Mar 12, 2018 Date of Influenza Vaccine: Apr 08, 2020 Past Medical History Discussed below Family Medical History Significant Family History: No Pertinent Family Hx Family History: Alcoholism G8 BROTHER Diabetes mellitus G8 SISTER FH: lymphoma Myocardial infarction G8 SISTER Review of Systems-General Review of Systems Constitutional: see HPI; No chills, No dizziness EENTM: see HPI, no symptoms reported Respiratory: no symptoms reported, see HPI; No cough; dyspnea on exertion; No phlegm; short of breath Cardiovascular: see HPI; No chest pain, No palpitations Gastrointestinal: no symptoms reported, see HPI; No abdominal pain, No nausea, No vomiting Genitourinary: no symptoms reported, see HPI Musculoskeletal: no symptoms reported, see HPI Skin: no symptoms reported, see HPI Psychiatric/Neurological: No Symptoms Reported, See HPI Reviewed Test Results Reviewed Test Results Lab Laboratory Tests Test 04/20/20 14:45 04/20/20 15:06 04/20/20 17:34 04/20/20 20:53 Range/Units White Blood Count 12.0 H 4.3-11.0 10^3/uL Red Blood Count 6.00 H 4.30-5.52 10^6/uL Hemoglobin 17.3 13.3-17.7 g/dL Hematocrit 55 H 40-54 % Mean Corpuscular Volume 92 80-99 fL Mean Corpuscular Hemoglobin 29 25-34 pg Mean Corpuscular Hemoglobin Concent 31 L 32-36 g/dL Red Cell Distribution Width 13.9 10.0-14.5 % Platelet Count 235 130-400 10^3/uL Mean Platelet Volume 11.9 9.0-12.2 fL Immature Granulocyte % (Auto) 1 % Neutrophils (%) (Auto) 85 H 42-75 % Lymphocytes (%) (Auto) 10 L 12-44 % Monocytes (%) (Auto) 4 0-12 % Eosinophils (%) (Auto) 0 0-10 % Basophils (%) (Auto) 0 0-10 % Neutrophils # (Auto) 10.2 H 1.8-7.8 10^3/uL Lymphocytes # (Auto) 1.2 1.0-4.0 10^3/uL Monocytes # (Auto) 0.5 0.0-1.0 10^3/uL Eosinophils # (Auto) 0.0 0.0-0.3 10^3/uL Basophils # (Auto) 0.0 0.0-0.1 10^3/uL Immature Granulocyte # (Auto) 0.1 0.0-0.1 10^3/uL Prothrombin Time 13.9 12.2-14.7 SEC INR Comment 1.0 0.8-1.4 Sodium Level 138 135-145 MMOL/L Potassium Level 5.0 3.6-5.0 MMOL/L Chloride Level 102 98-107 MMOL/L Carbon Dioxide Level 25 21-32 MMOL/L Anion Gap 11 5-14 MMOL/L Blood Urea Nitrogen 22 H 7-18 MG/DL Creatinine 1.65 H 0.60-1.30 MG/DL Estimat Glomerular Filtration Rate 41 BUN/Creatinine Ratio 13 Glucose Level 231 H 70-105 MG/DL Lactic Acid Level 2.06 *H 1.13 0.50-2.00 MMOL/L Calcium Level 8.8 8.5-10.1 MG/DL Corrected Calcium 9.6 8.5-10.1 MG/DL Magnesium Level 2.4 1.6-2.4 MG/DL Total Bilirubin 0.3 0.1-1.0 MG/DL Aspartate Amino Transf (AST/SGOT) 26 5-34 U/L Alanine Aminotransferase (ALT/SGPT) 22 0-55 U/L Alkaline Phosphatase 85 40-136 U/L Total Creatine Kinase 276 H 30-200 U/L Troponin I 0.038 H <0.028 NG/ML B-Type Natriuretic Peptide 3045.9 H <100.0 PG/ML Total Protein 6.1 L 6.4-8.2 GM/DL Albumin 3.0 L 3.2-4.5 GM/DL Procalcitonin 0.11 H <0.10 NG/ML Coronavirus 2019 (SIVAKUMAR) Negative Negative Urine Color YELLOW Urine Clarity CLEAR Urine pH 6.0 5-9 Urine Specific [place] 1.025 H 1.016-1.022 Urine Protein 3+ H NEGATIVE Urine Glucose (UA) 3+ H NEGATIVE Urine Ketones TRACE H NEGATIVE Urine Nitrite NEGATIVE NEGATIVE Urine Bilirubin 1+ H NEGATIVE Urine Urobilinogen 0.2 < = 1.0 MG/DL Urine Leukocyte Esterase NEGATIVE NEGATIVE Urine RBC (Auto) 3+ H NEGATIVE Urine RBC 2-5 H /HPF Urine WBC NONE /HPF Urine Crystals PRESENT H /LPF Urine Amorphous Sediment MOD LEAH URATES H /LPF Urine Bacteria TRACE /HPF Urine Casts PRESENT /LPF Urine Hyaline Casts 2-5 H /LPF Urine Mucus NEGATIVE /LPF Urine Culture Indicated NO Glucometer 156 H 70-110 MG/DL Test 04/21/20 04:04 04/21/20 06:44 04/21/20 10:16 Range/Units White Blood Count 11.1 H 4.3-11.0 10^3/uL Red Blood Count 5.50 4.30-5.52 10^6/uL Hemoglobin 15.7 13.3-17.7 g/dL Hematocrit 51 40-54 % Mean Corpuscular Volume 92 80-99 fL Mean Corpuscular Hemoglobin 29 25-34 pg Mean Corpuscular Hemoglobin Concent 31 L 32-36 g/dL Red Cell Distribution Width 13.6 10.0-14.5 % Platelet Count 240 130-400 10^3/uL Mean Platelet Volume 12.9 H 9.0-12.2 fL Immature Granulocyte % (Auto) 0 % Neutrophils (%) (Auto) 79 H 42-75 % Lymphocytes (%) (Auto) 14 12-44 % Monocytes (%) (Auto) 6 0-12 % Eosinophils (%) (Auto) 1 0-10 % Basophils (%) (Auto) 1 0-10 % Neutrophils # (Auto) 8.7 H 1.8-7.8 10^3/uL Lymphocytes # (Auto) 1.5 1.0-4.0 10^3/uL Monocytes # (Auto) 0.7 0.0-1.0 10^3/uL Eosinophils # (Auto) 0.1 0.0-0.3 10^3/uL Basophils # (Auto) 0.1 0.0-0.1 10^3/uL Immature Granulocyte # (Auto) 0.0 0.0-0.1 10^3/uL Sodium Level 141 135-145 MMOL/L Potassium Level 4.4 3.6-5.0 MMOL/L Chloride Level 105 98-107 MMOL/L Carbon Dioxide Level 25 21-32 MMOL/L Anion Gap 11 5-14 MMOL/L Blood Urea Nitrogen 26 H 7-18 MG/DL Creatinine 1.90 H 0.60-1.30 MG/DL Estimat Glomerular Filtration Rate 35 BUN/Creatinine Ratio 14 Glucose Level 240 H 70-105 MG/DL Calcium Level 8.4 L 8.5-10.1 MG/DL Corrected Calcium 9.5 8.5-10.1 MG/DL Total Bilirubin 0.2 0.1-1.0 MG/DL Aspartate Amino Transf (AST/SGOT) 20 5-34 U/L Alanine Aminotransferase (ALT/SGPT) 19 0-55 U/L Alkaline Phosphatase 72 40-136 U/L Troponin I 0.048 H <0.028 NG/ML Total Protein 5.0 L 6.4-8.2 GM/DL Albumin 2.6 L 3.2-4.5 GM/DL Procalcitonin 0.14 H <0.10 NG/ML Glucometer 208 H 178 H 70-110 MG/DL Physical Exam Physical Exam Vital Signs Vital Signs - First Documented 04/20/20 04/20/20 14:40 21:00 Temp 34.4 Pulse 80 Resp 18 B/P (MAP) 202/118 (146) Pulse Ox 94 O2 Delivery Nasal Cannula O2 Flow Rate 6.00 FiO2 90 Capillary Refill : Less Than 3 SecondsLess Than 3 Seconds Height, Weight, BMI Height: 5'8.00" Weight: 186lbs. 0.0oz. 84.664767ru; 30.08 BMI Method:Stated General Appearance: No Apparent Distress, WD/WN Eyes: Bilateral Eye Normal Inspection, Bilateral Eye PERRL, Bilateral Eye EOMI HEENT: PERRL/EOMI Neck: Full Range of Motion, Normal Inspection Respiratory: Chest Non Tender, No Respiratory Distress, Crackles, Wheezing Cardiovascular: Regular Rate, Rhythm, No Murmur, Bradycardia, Other (+1/4 radial pulses ) Gastrointestinal: Normal Bowel Sounds, No Organomegaly, No Pulsatile Mass, Non Tender Rectal: Normal Exam, Deferred Extremity: Normal Capillary Refill, Normal Inspection, Other (trace edema BLE) Neurologic/Psychiatric: Alert, Oriented x3 Skin: Warm/Dry, Other (psoriais ) A/P-Cardiology Admission Diagnosis Congestive heart failure Coronary artery disease Hypertension Hyperlipidemia Assessment/Plan Congestive heart failure, acute on chronic left ventricular systolic dysfunction, probably ischemic in nature, ejection fraction 30-35 percent, having worsening shortness of breath. Elevated BNP. Will be given Lasix and monitor tolerance and response Mildly elevated troponin, likely type II [place] secondary to CHF. EKG showing no acute ST changes, denies any chest pain. Peripheral arterial disease, underwent complex intervention on the right lower extremity in 2017 with 2 stent deployment self-expanding Innova 7 x 100 proximally and 6 x 80 distally with excellent results. Total occlusion below the knee, attempt to intervene on it without success, patient was referred to Dr. Solis where he underwent peripheral angiogram on October 31, 2016 with attempted unsuccessful recannulization of right tibioperoneal trunk. Recommended continuing with conservative management. 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 Dominant artery, reconstructed by collaterals. Severe stenosis at the mid circumflex artery and long segment of stenosis in the proximal LAD. EF 30 percent. Patient was sent for evaluation for possible bypass surgery. He was evaluated by Dr. Dale Thomas. Thought to be high risk for bypass secondary to being high risk for infectious complications given his active psoriasis all over his body. Underwent cardiac catheterization 2 was staged intervention by Dr. Solis on August 29, 2016 and September 05, 2016 with 2.520 mm Promus drug-eluting stent deployed to the proximal left circumflex artery. Patient also had 2.2516 mm Promus drug-eluting stent to the mid LAD, and 2.2516 mm Promus drug-eluting stent to the diagonal with good results. Hypertension, status post transient hypotension, restart home medication monitor blood pressure next Hyperlipidemia, monitor lipids Acute on chronic renal insufficiency, receiving IV fluid. Continue to monitor renal function Renal artery stenosis, underwent right renal artery stenting by Dr. Solis on October 31, 2016. Continue to monitor. 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 History of multiple TIAs. Source was not identified. Maintained on aspirin. Mild bilateral carotid stenosis, ultrasound was done in April 2016. Continue to monitor Diabetes mellitus, followed and managed by primary care physician Tobaccoism, still an active smoker working on smoking cessation, discussed and left smoking cessation History of psoriasis. History of bladder CA. Has been cancer free for 3 years. Followed at the [place] Clinical Quality Measures DVT/VTE Risk/Contraindication: Risk Factor Score Per Nursin RFS Level Per Nursing on Admit: 4+=Very High SALOME RUTHERFORD MD Apr 21, 2020 14:12
--- NOTE | 2020-04-21 14:33 | Occupational Therapy Eval ---
OT Evaluation-General/PLF Medical Diagnosis Admission Date Apr 20, 2020 at 16:23 Medical Diagnosis: CHF exacerbation Onset Date: Apr 20, 2020 Therapy Diagnosis Therapy Diagnosis: Weakness, Decreased ADL skills Height/Weight Height (Feet): 5 Height (Inches): 8.00 Weight (Pounds): 186 Weight (Ounces): 0.0 Precautions Precautions/Isolations: Fall Prevention, Standard Precautions Weight Bear Status Weight Bearing Restriction: Weight Bearing/Tolerated Referral Physician: Dr. Souza Referral Reason: Activity Tolerance, Self Care, Evaluation/Treatment, Strengthening/ROM Medical History Pertinent Medical History: CAD Additional Medical History CHF, PAD, stent placements, bladder CA, Prostatectomy, psoriasis Current History Pt. fell at home and reports he laid for 2 days before his daughter found him. Reviewed History: Yes Social History Home: Trailer with one step Current Living Status: Alone Entry Into Home: Stairs With Railing Steps Into Home: 1 Pt. reports that his daughter has said that he will be living with her when he discharges here. ADL-Prior Level of Function SCALE: Activities may be completed with or without assistive devices. 1-Yjtipylmfb-koaazhl completes the activity by him/herself with no assistance from a helper. 5-Set-up or Clean-up Assistance-helper sets up or cleans up; patient completes activity. [place] assists only prior to or following the activity. 4-Supervision or Touching Assistance-helper provides verbal cues and/or touch ing/steadying and/or contact guard assistance as patient completes activity. Assistance may be provided throughout the activity or intermittently. 3-Partial/Moderate Assistance-helper does LESS THAN HALF the effort. [place] lifts, holds or supports trunk or limbs, but provides less than half the effort. 2-Substantial/Maximal Assistance-helper does MORE THAN HALF the effort. [place] lifts or holds trunk or limbs and provides more than half the effort. 1-Povcrifax-txysoa does ALL the effort. Patient does none of the effort to complete the activity. Or, the assistance of 2 or more helpers is required for the patient to complete the activity. If activity was not attempted, code reason: 7-Patient Refused. 9-Not Applicable-not attempted and the patient did not perform the activity before the current illness, exacerbation or injury. 10-Not Attempted due to Environmental Limitations-(lack of equipment, weather restraints, etc.). 88-Not Attempted due to Medical Conditions or Safety Concerns. ADL PLOF Comments Pt indicates that he is normally independent with daily tasks such as bathing and dressing. He does not typically have any assistance with them. He states that he uses a cane "sometimes," mainly when he grocery shops. Self Care: Unknown Functional Cognition: Unknown OT Current Status Subjective Pt. does not report pain level, but states that his legs are numb. He states that they are numb from "the crease in the bed." Mental Status/Objective Patient Orientation: Person, Place Current Upper Extremity ROM WFL ADL-Treatment Eating (QC): 5 On/Off Footwear (QC): 2 Pt. in bed when therapy entered room. OT/PT co-treated due to level of skilled assist needed for fatigue. OT assessed ADL skills while PT focused on transfers. Pt. able to transfer supine-sit with min assist. Once on side of b ed, it was noted he had severe case of psoriasis all over. Pt. was provided with warm washcloths, and he was able to wash his chest and arms. Noted that pt. has dirt in fingernails and what appears to be on his hands. OT attempts to cleanse with cloth, with little effect. Pt. stood with mod x 2, and was able to wash front brigido area. OT cleansed rear brigido area. Pt. sat down quickly, and stated that his legs, "just gave out." Fresh gown was donned and chair placed close. Pt. stood again with mod x 2, and began to transfer to chair. He had difficulty moving feet, and began to attempt sitting before chair was placed behind him. Pt. required guided sit with therapy guiding his hips to chair. He states again that his legs "just give out." All needs met and pt. is up with PT, completing LE exercises when OT leaves room. Education OT Patient Education: Correct positioning, Modified ADL techniques, Progress toward Goal/Update tx plan, Purpose of tx/functional activities, Reviewed precautions, Rehab process, Transfer techniques Teaching Recipient: Patient Teaching Methods: Demonstration, Discussion Response to Teaching: Verbalize Understanding, Return Demonstration OT Short Term Goals Short Term Goals Time Frame: Apr 28, 2020 Eatin Oral hygiene: 4 Toileting hygiene: 4 Shower/bathe self: 3 Upper body dressin Lower body dressin Putting on/taking off footwear: 3 OT Endbander Goals Endbander Goals Time Frame: May 05, 2020 Eating (QC): 6 Oral Hygiene (QC): 5 Toileting Hygiene (QC): 4 Shower/Bathe Self (QC): 4 Upper Body Dressing (QC): 5 Lower Body Dressing (QC): 4 On/Off Footwear (QC): 4 Additional Goals: 1-Demonstrate ADL Tasks, 2-Verbalize Understanding, 3- ImproveStrength/Vikram 1=Demonstrate adherence to instructed precautions during ADL tasks. 2=Patient will verbalize/demonstrate understanding of assistive devices/modifications for ADL. 3=Patient will improve strength/tolerance for activity to enable patient to perform ADL's. OT Education/Plan Problem List/Assessment Assessment: Decreased Activ Tolerance, Dependent Transfers, Impaired Bed Mobility, Impaired Funct Balance, Impaired I ADL's, Impaired Self-Care Skills Discharge Recommendations Plan/Recommendations: Continue POC Therapy Discharge Recommendati: Post Acute OT Comment Equipment needs and discharge location to be determined. Treatment Plan/Plan of Care Treatment,Training & Education: Yes Patient would benefit from OT for education, treatment and training to promote independence in ADL's, mobility, safety and/or upper extremity function for ADL's. Plan of Care: ADL Retraining, Functional Mobility, UE Funct Exercise/Act Treatment Duration: May 05, 2020 Frequency: 5 times per week Estimated Hrs Per Day: .25 hour per day Agreement: Yes Rehab Potential: Fair Time/GCodes Start Time: 13:39 Stop Time: 13:58 Total Time Billed (hr/min): 19 Billed Treatment Time 1, EVH Co-treatment with PT. Please see above note for designated roles. YANY SCOTT OT Apr 21, 2020 14:33
[2020-04-21] MEDS ORDERED: CARV12.52 PO (14:51)
[2020-04-21] MEDS ORDERED: CLOP75TA69 PO (14:51)
[2020-04-21] MEDS ORDERED: FURO20TA4 PO (14:51)
--- NOTE | 2020-04-21 14:59 | NUR ---
SPOKE WITH PT AND WENT THRU THE EXT MED HISTORY TO COMPLETE THE MED REC WHEN PT WAS HERE PREVIOUSLY I ENTERED THE MED REC ON 04-06-2020, AT THAT TIME [facility] AND HAD NOT BE[facility] FILLED SINCE 2019 BUT THE PT IS ADAMANT HE STILL HAD PLENTY AT HOME FROM PREVIOUS FILLS. PLEASE SEE MY NOTE FROM 04-06-2020 FOR FILL DATES
--- NOTE | 2020-04-21 15:01 | Physical Therapy Evaluation ---
PT Evaluation-General Medical Diagnosis Admission Date Apr 20, 2020 at 16:23 Medical Diagnosis: CHF exacerbation Onset Date: Apr 20, 2020 Therapy Diagnosis Therapy Diagnosis: Impaired strength and mobility Height/Weight Height (Feet): 5 Height (Inches): 8.00 Weight (Pounds): 186 Weight (Ounces): 0.0 Precautions Precautions/Isolations: Fall Prevention, Standard Precautions Weight Bear Status Right Lower Extremity: Right Weight Bearing/Tolerated Left Lower Extremity: Left Weight Bearing/Tolerated Referral Physician: Dr. Souza Reason for Referral: Evaluation/Treatment Medical History Pertinent Medical History: CAD Reviewed History: Yes Social History Home: Trailer with one step Current Living Status: Alone Entry Into Home: Stairs With Railing PT Steps Into Home: 1 Pt reports that his daughter has said that he will be living with her when he discharges from here. Prior Prior Level of Function SCALE: Activities may be completed with or without assistive devices. 1-Boezvertwe-nbezury completes the activity by him/herself with no assistance from a helper. 5-Set-up or Clean-up Assistance-helper sets up or cleans up; patient completes activity. [place] assists only prior to or following the activity. 4-Supervision or Touching Assistance-helper provides verbal cues and/or touching/steadying and/or contact guard assistance as patient completes activity. Assistance may be provided throughout the activity or intermittently. 3-Partial/Moderate Assistance-helper does LESS THAN HALF the effort. [place] lifts, holds or supports trunk or limbs, but provides less than half the effort. 2-Substantial/Maximal Assistance-helper does MORE THAN HALF the effort. [place] lifts or holds trunk or limbs and provides more than half the effort. 9-Njmucyebs-vzecyn does ALL the effort. Patient does none of the effort to complete the activity. Or, the assistance of 2 or more helpers is required for the patient to complete the activity. If activity was not attempted, code reason: 7-Patient Refused. 9-Not Applicable-not attempted and the patient did not perform the activity before the current illness, exacerbation or injury. 10-Not Attempted due to Environmental Limitations-(lack of equipment, weather restraints, etc.). 88-Not Attempted due to Medical Conditions or Safety Concerns. Bed Mobility: 6 Transfers (B,C,W/C): 6 Gait: 6 Stairs: 6 Wheelchair Mobility: 9 Indoor Mobility (Ambulation): Independent Stairs: Independent Prior Devices Use: None PT Evaluation-Current Subjective Pt presents laying supine in bed. Pt agrees to Pt. Pt voices no complaints of pain. Pt/Family Goals Return Home Objective Patient Orientation: Person, Place, Time, Eyes Open, Situation Attachments: [place] Catheter ROM/Strength ROM Lower Extremities WFL Strength Lower Extremities R hip flex 3+/5 L hip flex 3+/5 R knee ext 4/5 L knee ext 4/5 Sensory Hearing: Functional Sensation Right Lower Extremit: Intact Sensation Left Lower Extremity: Intact Sensation Lower Extremities BLE sensation intact to light touch L2-S2 Transfers Lying to Sitting/Side of Bed(Q: 3 Sit to Stand (QC): 3 Chair/Idx-hc-Frzpz Xfer(QC): 2 Patient required min assist to sit to EOB; pt given mod assist to complete sit to stand. Pt max assist on the bed to chair transfer as he was unable to initiate pivoting once he was standing. Gait Does the Patient Walk?: No and Walking Goal IS indicated Balance Sitting Static: Good Sitting Dynamic: Good Standing Static: Fair Standing Dynamic: Fair Treatment Seated ankle pumps, LAQs, hip abd/add B x20 Assessment/Needs Pt struggles with standing endurance and showed tendency to fall back into bed when tired. Pt was able to take a few steps forward but then was not able to complete any turning to pivot towards chair; pt's hip were pulled back and guided into chair. Rehab Potential: Fair PT Dietitian Research Goals Dietitian Research Goals PT Dietitian Research Goals Time Frame: Apr 28, 2020 Roll Left & Right (QC): 6 Sit to Lying (QC): 6 Lying-Sitting on Side/Bed(QC): 6 Sit to Stand (QC): 4 Chair/Ayx-bd-Tdzdo Xfer(QC): 4 Toilet Transfer (QC): 4 Does the Patient Walk: Yes Walk 10 feet (QC): 4 Walk 50ft with 2 Turns (QC): 4 PT Plan Problem List Problem List: Activity Tolerance, Functional Strength, Safety, Balance, Gait, Transfer, Bed Mobility, ROM Treatment/Plan Treatment Plan: Continue Plan of Care Treatment Plan: Bed Mobility, Education, Functional Activity Vikram, Functional Strength, Gait, Safety, Therapeutic Exercise, Transfers Treatment Duration: May 05, 2020 Frequency: 6 times per week Estimated Hrs Per Day: .25 hour per day Patient and/or Family Agrees t: Yes Safety Risks/Education Patient Education: Transfer Techniques, Correct Positioning, Safety Issues Teaching Recipient: Patient Teaching Methods: Demonstration, Discussion Response to Teaching: Reinforcement Needed Discharge Recommendations Plan Pt will work on bed mobility, balance training, transfers, gait training, and therapeutic exercises. Therapy Discharge Recommendati: Home & Family Time/GCodes Time In: 1340 Time Out: 1401 Total Billed Treatment Time: 21 Total Billed Treatment 1 visit CHELSIE 10' FA 11' PIPE LITTLE PT Apr 21, 2020 15:00
[2020-04-21 15:33] VITALS: BP 152/80
--- NOTE | 2020-04-21 16:03 | CONSULTATION REPORT ---
DATE OF SERVICE: ATTENDING PHYSICIAN: Dr. Souza. SUMMARY: After reviewing the patient's record in the hospital and the office, this is a 75-year-old white man admitted for congestive heart failure, has apparently a history of hematuria. I did a TURP on him in 01/2019. He recovered well and was voiding well and on 10/09, he was found to have microscopic hematuria at the office. Workup including special urine test, CAT scan and cystoscopy was negative. The prostate was well resected. There were no bladder tumors or else. IMPRESSION: History of microscopic hematuria with negative workup, a previous TURP. PLAN: Observe and will see him p.r.n. in the hospital. Otherwise, he is to keep his appointment as he has in my office of this month unless he is still in the hospital. Job ID: [id number] DocumentID: [id number] Dictated Date: 04/21/2020 12:06:50 Construction Code Administrator Date: 04/21/2020 16:02:29 Dictated By: JANET SANDHU MD MTDD
[2020-04-21] MEDS ORDERED: polyethylene glycoL POWDER 17 GM (MIRALAX) PACK PO PRN (18:00)
[2020-04-21] MEDS ORDERED: ONDANSETRON 4 MG/2 ML (SDV) Z0FRAN IV PRN (18:00)
[2020-04-21] MEDS ORDERED: ANTACID SUSP 30 ML UDC (MYLANTA) PO PRN (18:00)
[2020-04-21] MEDS ORDERED: ACETAMINOPHEN 325 MG TABLET PO PRN (18:00)
[2020-04-21] MEDS ORDERED: MELATONIN 3 MG TABLET PO PRN (18:00)
[2020-04-21] MEDS ORDERED: BISACODYL 10 MG SUPP (DULCOLAX) PR PRN (18:00)
[2020-04-21] MEDS ORDERED: ONDANSETRON 4 MG (ZOFRAN) ORAL DISSOLVE TAB PO PRN (18:00)
[2020-04-21 20:34] VITALS: BP 157/85
[2020-04-21] MEDS: DOCUSATE SODIUM 100 MG (COLACE) CAP PO SCH (20:50)
[2020-04-21] MEDS: ROSUVASTATIN 20 MG (CRESTOR) TABLET PO SCH (20:52)
[2020-04-21] MEDS: SENNOSIDES 8.6 MG (SENOKOT) TAB PO SCH (20:52)
[2020-04-21] MEDS: FENOFIBRATE 134 MG (LOFIBRA) CAPSULE PO SCH (20:55)
[2020-04-22] VITALS: BP 137/70
[2020-04-22] MEDS: RT-ALBUTEROL/IPRATROPIUM 3 ML (DUONEB) VIAL INH SCH ×6 (02:36→21:26)
[2020-04-22 04:00] VITALS: BP 155/86
[2020-04-22 04:07] LABS: POTASSIUM 4.2 MMOL/L (3.6-5.0)
[2020-04-22 04:08] LABS: CALCIUM 8.2 MG/DL (8.5-10.1)
[2020-04-22 04:12] LABS: CREATININE SERUM 2.16 MG/DL (0.60-1.30)
[2020-04-22] MEDS: inSUlin ASPART (NovoLOG) 1 UNIT/0.01 ML (CHARGE PER UNIT) SC SCH ×4 (04:51→21:04)
[2020-04-22 08:19] VITALS: BP 164/84
[2020-04-22] MEDS: SENNOSIDES 8.6 MG (SENOKOT) TAB PO SCH ×2 (08:24→21:04)
[2020-04-22] MEDS: DOCUSATE SODIUM 100 MG (COLACE) CAP PO SCH ×2 (08:24→21:04)
[2020-04-22] MEDS: CARVEDILOL 12.5 MG (COREG) TABLET PO SCH ×2 (08:24→21:04)
[2020-04-22] MEDS: ENOXAPARIN 40 MG/0.4 ML (LOVENOX) SYR SC SCH (08:24)
--- NOTE | 2020-04-22 08:53 | Cardiology Progress Note ---
Subjective Date Seen by Provider: Apr 22, 2020 Time Seen by Provider: 08:52 Subjective/Events-last exam Patient was seen at bedside, laying down comfortably. No new complaint Review of Systems General: No Chills, No Night Sweats, No Fatigue, No Malaise, No Appetite, No Other HEENT: No Head Aches, No Visual Changes, No Eye Pain, No Ear Pain, No Dysphasia, No Sinus Congestion, No Post Nasal Drip, No Sore Throat, No Other Pulmonary: Dyspnea; No Cough, No Pleuritic Chest Pain, No Other Cardiovascular: No: Chest Pain, Palpitations, Orthopnea, Paroxysmal Noc. Dyspnea, Edema, Lt Headedness, Other Focused Exam Lactate Level 04/20/20 14:45: Lactic Acid Level 2.06*H 04/20/20 17:34: Lactic Acid Level 1.13 Objective-Cardiology Exam Last Set of Vital Signs Vital Signs 04/20/20 04/21/20 04/22/20 04/22/20 21:00 11:41 08:19 08:27 Temp 35.7 Pulse 79 Resp 24 B/P (MAP) 164/84 (110) Pulse Ox 93 O2 Delivery Room Air O2 Flow Rate 50.00 FiO2 90 Capillary Refill : Less Than 3 SecondsLess Than 3 Seconds I&O Intake and Output 04/22/20 00:00 Intake Total 1500 ml Output Total 2625 ml Balance -1125 ml Intake Oral 1500 ml Output Urine Total 2625 ml General: Alert, Oriented X3, Cooperative HEENT: Atraumatic, PERRLA Neck: Supple, No JVD, No Thyromegaly Lungs: Normal Air Movement, Other (bilateral rhonchi) Heart: Regular Rate, Normal S1, Normal S2, No Murmurs Abdomen: Normal Bowel Sounds, Soft, No Tenderness, No Hepatosplenomegaly, No Masses Extremities: No Clubbing, No Cyanosis, No Edema, Normal Pulses, No Tenderness/Swelling Skin: No Rashes, No Breakdown, No Significant Lesion Neuro: Normal Gait, Normal Speech, Strength at 5/5 X4 Ext, Normal Tone, Sensation Intact Psych/Mental Status: Mental Status NL, Mood NL Results Lab Laboratory Tests 04/22/20 03:12 A/P-Cardiology Admission Diagnosis Congestive heart failure Coronary artery disease Hypertension Hyperlipidemia Assessment/Plan Congestive heart failure, acute on chronic left ventricular systolic dysfunction, probably ischemic in nature, ejection fraction 30-35 percent, responded well to diuretics, continue to monitor closely Mildly elevated troponin, likely type II [place] secondary to CHF. EKG showing no acute ST changes, denies any chest pain. Peripheral arterial disease, underwent complex intervention on the right lower extremity in 2016 with 2 stent deployment self-expanding Innova 7 x 100 proximally and 6 x 80 distally with excellent results. Total occlusion below the knee, attempt to intervene on it without success, patient was referred to Dr. Solis where he underwent peripheral angiogram on October 31, 2016 with attempted unsuccessful recannulization of right tibioperoneal trunk. Recommended continuing with conservative management. 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 Dominant artery, reconstructed by collaterals. Severe stenosis at the mid circumflex artery and long segment of stenosis in the proximal LAD. EF 30 percent. Patient was sent for evaluation for possible bypass surgery. He was evaluated by Dr. Dale Thomas. Thought to be high risk for bypass secondary to being high risk for infectious complications given his active psoriasis all over his body. Underwent cardiac catheterization 2 was staged intervention by Dr. Solis on August 29, 2016 and September 05, 2016 with 2.520 mm Promus drug-eluting stent deployed to the proximal left circumflex artery. Patient also had 2.2516 mm Promus drug-eluting stent to the mid LAD, and 2.2516 mm Promus drug-eluting stent to the diagonal with good results. Hypertension, status post transient hypotension, lipid pressure is better at this time. Continue to monitor Hyperlipidemia, monitor lipids Acute on chronic renal insufficiency, slight deterioration in renal function today. Received IV fluid. And tinea to monitor Renal artery stenosis, underwent right renal artery stenting by Dr. Solis on October 31, 2016. Continue to monitor. 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 History of multiple TIAs. Source was not identified. Maintained on aspirin. Mild bilateral carotid stenosis, ultrasound was done in April 2016. Continue to monitor Diabetes mellitus, followed and managed by primary care physician Tobaccoism, still an active smoker working on smoking cessation, discussed and left smoking cessation History of psoriasis. History of bladder CA. Has been cancer free for 3 years. Followed at the [facility] Clinical Quality Measures DVT/VTE Risk/Contraindication: Risk Factor Score Per Nursin RFS Level Per Nursing on Admit: 4+=Very High SALOME RUTHERFORD MD Apr 22, 2020 08:53
[2020-04-22] MEDS ORDERED: FUROSEMIDE 40 MG/4 ML INJ (LASIX) IVP SCH (09:00)
--- NOTE | 2020-04-22 11:18 | Progress Note ---
Subjective Subjective Date Seen by Provider: Apr 22, 2020 Time Seen by Provider: 08:15 Pt states he feels much better today. Denies SOB any worse then this normal baseline. Pt is having some paresthesias in his feet b/l since admission, this is new onset and hasn't ever happened before. Pt denies any other complaints. VS stable. Pt denies chest pain, palpitations, cough, or new phlem production. Review of Systems General: No Chills, No Night Sweats, No Fatigue Pulmonary: Dyspnea; No Cough, No Pleuritic Chest Pain Cardiovascular: Edema; No: Chest Pain, Palpitations, Lt Headedness Gastrointestinal: No: Nausea, Vomiting, Abdominal Pain Objective Exam Vital Signs Vital Signs - First Documented 04/20/20 04/20/20 14:40 21:00 Temp 34.4 Pulse 80 Resp 18 B/P (MAP) 202/118 (146) Pulse Ox 94 O2 Delivery Nasal Cannula O2 Flow Rate 6.00 FiO2 90 Capillary Refill : Less Than 3 SecondsLess Than 3 Seconds General Appearance: No Apparent Distress, WD/WN Eyes: Bilateral Eye Normal Inspection, Bilateral Eye PERRL, Bilateral Eye EOMI HEENT: PERRL/EOMI Neck: Full Range of Motion, Normal Inspection Respiratory: Chest Non Tender, No Accessory Muscle Use, No Respiratory Distress, Decreased Breath Sounds, Wheezing Cardiovascular: Regular Rate, Rhythm, No Murmur Gastrointestinal: Normal Bowel Sounds, Non Tender Rectal: Deferred Extremity: Normal Capillary Refill, Normal Inspection, Other (+3 edema BLE) Neurologic/Psychiatric: Alert, Oriented x3, Normal Mood/Affect, psychiatry physician II-XII Norm as Tested Skin: Normal Color, Warm/Dry, Other (psoriais ) Results Lab Laboratory Tests 04/21/20 15:36: Glucometer 183H 04/21/20 20:36: Glucometer 128H 04/22/20 03:12: Sodium Level 138, Potassium Level 4.2, Chloride Level 100, Carbon Dioxide Level 26, Anion Gap 12, Blood Urea Nitrogen 33H, Creatinine 2.16H, Estimat Glomerular Filtration Rate 30, BUN/Creatinine Ratio 15, Glucose Level 111H, Calcium Level 8.2L, Magnesium Level 2.0 04/22/20 10:21: Glucometer 206H Microbiology 04/20/20 Blood Culture - Preliminary, Resulted No growth Assessment/Plan Assessment/Plan Admission Dx Acute on Chronic HFrEF Assessment and Plan Acute on Chronic HFrEF MOLLY on CKD3 Hx of severe ischemic cardiomyopathy with EF of 30-35%; systolic dysfunction Cr increasing No longer requiring supplemental oxygen Hold lasix Cardiology consulted, appreciate the recommendations Debility PT/OT customer services manager consulted, appreciate assistance Likely will need long-term placement COPD Continue Duoneb T2DM Levemir SSI HTN Continue home meds DVT prophylaxis: Lovenox Problems: (1) Acute on chronic HFrEF (heart failure with reduced ejection fraction) Clinical Quality Measures Admission Status Admission Dx Acute on Chronic HFrEF DVT/VTE Risk/Contraindication: Risk Factor Score Per Nursin RFS Level Per Nursing on Admit: 4+=Very High Supervisory-Addendum Brief Verification & Attestation Participated in pt care: history, MDM, physical Personally performed: exam, history, MDM, supervision of care Care discussed with: Medical Student Procedures: n/a Results interpretation: Verified all documentation Verification and Attestation of Medical Student E/M Service A medical student performed and documented this service in my presence. I reviewed and verified all information documented by the medical student and made modifications to such information, when appropriate. I personally performed the physical exam and medical decision making. Mindy Castillo, Apr 22, 2020,14:30 JENNIFER ALMARAZ MED STUDENT Apr 22, 2020 11:18 MINDY CASTILLO MD Apr 22, 2020 14:31
[2020-04-22 11:35] VITALS: BP 156/88
--- NOTE | 2020-04-22 12:11 | Physical Therapy Daily Note ---
PT Daily Note-Current Subjective Patient agrees to PT. He reports he is going to a rehab in [place] this week. Mental Status Patient Orientation: Normal For Age Attachments: Molina Catheter Transfers SCALE: Activities may be completed with or without assistive devices. 7-Imulercbzm-dsparnp completes the activity by him/herself with no assistance from a helper. 5-Set-up or Clean-up Assistance-helper sets up or cleans up; patient completes activity. [place] assists only prior to or following the activity. 4-Supervision or Touching Assistance-helper provides verbal cues and/or touching/steadying and/or contact guard assistance as patient completes activity. Assistance may be provided throughout the activity or intermittently. 3-Partial/Moderate Assistance-helper does LESS THAN HALF the effort. [place] lifts, holds or supports trunk or limbs, but provides less than half the effort. 2-Substantial/Maximal Assistance-helper does MORE THAN HALF the effort. [place] lifts or holds trunk or limbs and provides more than half the effort. 4-Chlkjoddh-jebzkr does ALL the effort. Patient does none of the effort to complete the activity. Or, the assistance of 2 or more helpers is required for the patient to complete the activity. If activity was not attempted, code reason: 7-Patient Refused. 9-Not Applicable-not attempted and the patient did not perform the activity before the current illness, exacerbation or injury. 10-Not Attempted due to Environmental Limitations-(lack of equipment, weather restraints, etc.). 88-Not Attempted due to Medical Conditions or Safety Concerns. Lying to Sitting/Side of Bed(Q: 2 Sit to Stand (QC): 1 (x 2 with patient unable to utilize FWW to assist in stand ) Chair/Yln-tw-Imttm Xfer(QC): 1 (x 2 SPT ) Weight Bearing Right Lower Extremity: Right Weight Bearing/Tolerated Left Lower Extremity: Left Weight Bearing/Tolerated Gait Training Does the Patient Walk?: No and Walking Goal IS indicated Exercises Supine Ex: Ankle pumps, Quad Set, Heel Slides Supine Reps: 12 Seated Therapy Exercises: Ankle pumps, Long arc quads, Hip flexion Seated Reps: 15 Assessment Patient is severely retropulsive and is unable to safely stand with FWW or with assist of 2. A sit to stand lift will be utilized for patient and staff safety. PT Snf Goals Snf Goals PT Drag Out Man Goals Time Frame: Apr 28, 2020 Roll Left & Right (QC): 6 Sit to Lying (QC): 6 Lying-Sitting on Side/Bed(QC): 6 Sit to Stand (QC): 4 Chair/Jaw-aj-Nxbro Xfer(QC): 4 Toilet Transfer (QC): 4 Does the Patient Walk: Yes Walk 10 feet (QC): 4 Walk 50ft with 2 Turns (QC): 4 PT Plan Treatment/Plan Treatment Plan: Continue Plan of Care Treatment Plan: Bed Mobility, Education, Functional Activity Vikram, Functional Strength, Gait, Safety, Therapeutic Exercise, Transfers Treatment Duration: May 05, 2020 Frequency: 6 times per week Estimated Hrs Per Day: .25 hour per day Patient and/or Family Agrees t: Yes Time/GCodes Time In: 1115 Time Out: 1131 Total Billed Treatment Time: 16 Total Billed Treatment 1 visit EX 16 min SHERRY BAKER PT Apr 22, 2020 12:11
--- NOTE | 2020-04-22 13:53 | NUR ---
CM/SS visited with patient for social service consult. Plan: Patient will discharge to a residential facility in [place] at time of discharge. SNF: CM/SS researched facilities that accepted VA insurance close [facility], and [place], [place]. CM/SS contacted [facility] in [place] to make a referral. They wanted this ss to fax ([phone]) a packet. Awaiting acceptance/denial. Home: Patient lives at home alone. States that he has been getting around independently but will use a cane occasionally. The patient reports that his home is "filthy". He is willing and hoping to live with his daughter at time of discharge. Equipment: Cane. Denies any other equipment. VA/Insurance: Patient uses the [employer]. He is a part of the physician 15 group. The patient is unsure who his new primary care physician will be. The patient's daughter gave VA card numbers. Member number: [id number] Plan ID: [id number] Medicare: The patient's daughter stated that she belives the patient does have Medicare. She could not find a current card. The card number is: Claim number-[id number] Financial: The patient reports that he receives 1,800 in nursing home and 800 dollars a month for his "stock check". Support: The patient's daughter Eli lives in [place] but would like to have patient live with her. CM/SS discussed this with the patient. Patient is willing and believes it will be good for him. CM/SS contacted Eli to discuss discharge. She reports that the patient's home is "gross" and worse than it was last time after she cleaned it out. Eli states that she will not let him continue to live like that. Eli became emotional and stated that the patient "was her world". CM/SS informed her that this sw will follow up later in the day. CM/SS will continue to follow.
--- NOTE | 2020-04-22 14:09 | Occupational Ther Daily Note ---
OT Current Status-Daily Note Subjective Pt seated in recliner, agreeable to OT Tx. Pt did not report any pain. Mental Status/Objective Patient Orientation: Person, Confused Attachments: Molina Catheter, Telemetry ADL-Treatment Therapy Code Descriptions/Definitions Functional Raymond Measure: 0=Not Assessed/NA 4=Minimal Assistance 1=Total Assistance 5=Supervision or Setup 2=Maximal Assistance 6=Modified Raymond 3=Moderate Assistance 7=Complete IndependenceSCALE: Activities may be completed with or without assistive devices. 9-Cptbxwiell-zxhqnwt completes the activity by him/herself with no assistance from a helper. 5-Set-up or Clean-up Assistance-helper sets up or cleans up; patient completes activity. [place] assists only prior to or following the activity. 4-Supervision or Touching Assistance-helper provides verbal cues and/or touching/steadying and/or contact guard assistance as patient completes activity. Assistance may be provided throughout the activity or intermittently. 3-Partial/Moderate Assistance-helper does LESS THAN HALF the effort. [place] lifts, holds or supports trunk or limbs, but provides less than half the effort. 2-Substantial/Maximal Assistance-helper does MORE THAN HALF the effort. [place] lifts or holds trunk or limbs and provides more than half the effort. 2-Jjypdmmsq-tavkpa does ALL the effort. Patient does none of the effort to complete the activity. Or, the assistance of 2 or more helpers is required for the patient to complete the activity. If activity was not attempted, code reason: 7-Patient Refused. 9-Not Applicable-not attempted and the patient did not perform the activity before the current illness, exacerbation or injury. 10-Not Attempted due to Environmental Limitations-(lack of equipment, weather restraints, etc.). 88-Not Attempted due to Medical Conditions or Safety Concerns. Toileting Hygiene (QC): 1 (Total assist to perform hygiene) Toilet Transfer (QC): 1 (sit to stand lift from recliner to BS and back.) Other Treatment Pt seated in recliner, agreeable to OT tx. In order to strengthen BUEs and improve endurance, pt completed x10 reps BUEs shoulder flexion, and x15 elbow flexion/extension. Pt indicates he needs to use the restroom, OT brought in [facility], and used sit to stand lift to transfer pt to/from [facility]. Pt required sit to engineering faculty member order for OT to perform hygiene. Pt unable to have BM during session. Pt transferred back to recliner via sit to stand. Post OT tx, pt seated in recliner, call light in reach and all needs met. Education OT Patient Education: Correct positioning, Modified ADL techniques, Progress toward Goal/Update tx plan, Purpose of tx/functional activities Teaching Recipient: Patient Teaching Methods: Discussion Response to Teaching: Verbalize Understanding, Reinforcement Needed OT Short Term Goals Short Term Goals Time Frame: Apr 28, 2020 Eatin Oral hygiene: 4 Toileting hygiene: 4 Shower/bathe self: 3 Upper body dressin Lower body dressin Putting on/taking off footwear: 3 OT Fagoter Goals Care Home Goals Time Frame: May 05, 2020 Eating (QC): 6 Oral Hygiene (QC): 5 Toileting Hygiene (QC): 4 Shower/Bathe Self (QC): 4 Upper Body Dressing (QC): 5 Lower Body Dressing (QC): 4 On/Off Footwear (QC): 4 Additional Goals: 1-Demonstrate ADL Tasks, 2-Verbalize Understanding, 3- ImproveStrength/Vikram 1=Demonstrate adherence to instructed precautions during ADL tasks. 2=Patient will verbalize/demonstrate understanding of assistive devices/modifications for ADL. 3=Patient will improve strength/tolerance for activity to enable patient to perform ADL's. OT Education/Plan Problem List/Assessment Assessment: Decreased Activ Tolerance, Decreased UE Strength, Impaired Funct Balance, Impaired I ADL's, Impaired Self-Care Skills Discharge Recommendations Plan/Recommendations: Continue POC Treatment Plan/Plan of Care Patient would benefit from OT for education, treatment and training to promote independence in ADL's, mobility, safety and/or upper extremity function for ADL's. Plan of Care: ADL Retraining, Functional Mobility, UE Funct Exercise/Act Treatment Duration: May 05, 2020 Frequency: 5 times per week Estimated Hrs Per Day: .25 hour per day Agreement: Yes Rehab Potential: Fair Time/GCodes Start Time: 13:35 Stop Time: 14:00 Total Time Billed (hr/min): 25 Billed Treatment Time 1, EX (10'), ADL (15') MARIELLE MELARA OT Apr 22, 2020 14:09
--- NOTE | 2020-04-22 15:11 | NUR ---
RD ASSESSMENT PMHx: congestive HF; PAD; CAD; DM; TIA; CA(bladder, prostate, skin); BPH PT INTERACTION: Pt was awake and pleasant during nutrition assessment. Pt states current appetite is good. Note avg PO intake 100% x1d, per chart review. Pt states he is "supposed to be following a 50 gram carb" diet, and has no issues with chewing/swallowing food. Pt states no recent issues with nausea, vomiting, or diarrhea. Pt states some recent issues with constipation and that they were unsure of their last BM. Note pt currently on bowel regimen of colace BID, and senna BID, per chart review. Pt states no recent wt changes. Note recent 5# wt gain x2w, per chart review. Pt states current DM management is pretty good. Note recent HbA1c of 10.1 (04/07/2020), per chart review. ABNORMAL NUTRITION-RELATED LAB VALUES LOW: Ca 8.2; HIGH: BUN 33; cr 2.16; glu 111 Est. kcal needs: 0201-9526 kcal | 15-20 kcal/kg Est. Pro needs: 72-89 g Pro | 0.8-1.0 g Pro/kg PES STATEMENT: Food- and nutrition-related knowledge deficit (NB-1.1) related to lack of prior nutrition-related education as evidenced by pt interview and recent HbA1c 10.1 (04/07/2020). INTERVENTION: Continue with current diet order of Heart Healthy diet. Pt may benefit from consistent CHO restriction if blood glucose levels become elevated. Offered and discussed diet education on DM management. Discussed CHO counting and recommended levels for men of 60-75 grams per meal. Pt verbalized understanding of information provided. Will continue to follow and reassess as pt needs, intake, and status change. Zhang Snell, MS RD LD
[2020-04-22 16:00] VITALS: BP 147/77
[2020-04-22 20:00] VITALS: BP 160/91
[2020-04-22] MEDS: FENOFIBRATE 134 MG (LOFIBRA) CAPSULE PO SCH (21:04)
[2020-04-22] MEDS: ROSUVASTATIN 20 MG (CRESTOR) TABLET PO SCH (21:04)
[2020-04-23] VITALS: BP 142/83
[2020-04-23 04:00] VITALS: BP 175/100
[2020-04-23 05:13] LABS: CALCIUM 8.4 MG/DL (8.5-10.1); CREATININE SERUM 1.8 MG/DL (0.60-1.30); MAGNESIUM 2.1 MG/DL (1.6-2.4); POTASSIUM 4.4 MMOL/L (3.6-5.0)
[2020-04-23] MEDS: inSUlin ASPART (NovoLOG) 1 UNIT/0.01 ML (CHARGE PER UNIT) SC SCH ×4 (05:16→20:41)
[2020-04-23] MEDS: RT-ALBUTEROL/IPRATROPIUM 3 ML (DUONEB) VIAL INH SCH ×5 (07:15→22:47)
[2020-04-23 07:35] VITALS: BP 170/98
[2020-04-23] MEDS ORDERED: hydrALAZINE (APRESOLINE) 25 MG TAB PO NR (07:45)
--- NOTE | 2020-04-23 09:37 | Cardiology Progress Note ---
Subjective Date Seen by Provider: Apr 23, 2020 Time Seen by Provider: 09:34 Subjective/Events-last exam Patient is sitting in a chair, comfortable, denied any active pain. Breathing better Review of Systems General: No Chills, No Night Sweats; Fatigue, Malaise; No Appetite, No Other HEENT: No Head Aches, No Visual Changes, No Eye Pain, No Ear Pain, No Dysphasia, No Sinus Congestion, No Post Nasal Drip, No Sore Throat, No Other Pulmonary: Dyspnea; No Cough, No Pleuritic Chest Pain, No Other Cardiovascular: No: Chest Pain, Palpitations, Orthopnea, Paroxysmal Noc. Dyspnea, Edema, Lt Headedness, Other Focused Exam Lactate Level 04/20/20 14:45: Lactic Acid Level 2.06*H 04/20/20 17:34: Lactic Acid Level 1.13 Objective-Cardiology Exam Last Set of Vital Signs Vital Signs 04/20/20 04/21/20 04/23/20 21:00 11:41 07:35 Temp 36.2 Pulse 85 Resp 19 B/P (MAP) 170/98 (122) Pulse Ox 93 O2 Delivery Room Air O2 Flow Rate 50.00 FiO2 90 Capillary Refill : Less Than 3 SecondsLess Than 3 Seconds I&O Intake and Output 04/23/20 00:00 Intake Total 1630 ml Output Total 2175 ml Balance -545 ml Intake Oral 1630 ml Output Urine Total 2175 ml General: Alert, Oriented X3, Cooperative HEENT: Atraumatic, PERRLA Neck: Supple, No JVD, No Thyromegaly Lungs: Normal Air Movement, Other (bilateral rhonchi) Heart: Regular Rate, Normal S1, Normal S2, No Murmurs Abdomen: Normal Bowel Sounds, Soft, No Tenderness, No Hepatosplenomegaly, No Masses Extremities: No Clubbing, No Cyanosis, No Edema, Normal Pulses, No Tenderness/Swelling Skin: No Rashes, No Breakdown, No Significant Lesion Neuro: Normal Speech, Normal Tone, Other (numbness in the feet) Psych/Mental Status: Mental Status NL, Mood NL Results Lab Laboratory Tests 04/23/20 03:10 A/P-Cardiology Admission Diagnosis Congestive heart failure Coronary artery disease Hypertension Hyperlipidemia Assessment/Plan Congestive heart failure, acute on chronic left ventricular systolic dysfunction, probably ischemic in nature, ejection fraction 30-35 percent, responded well to diuretics, continue with Lasix and monitor Patient is unable to tolerate KRYS inhibitor and/or ARB due to renal failure Mildly elevated troponin, likely type II PA secondary to CHF. EKG showing no acute ST changes, denies any chest pain. Conservative management is recommended Peripheral arterial disease, history of complex intervention on the right lower extremity in 2017 with 2 stent deployment self-expanding Innova 7 x 100 prox imally and 6 x 80 distally with excellent results. Total occlusion below the knee, attempt to intervene on it without success, patient was referred to Dr. Solis where he underwent peripheral angiogram on October 31, 2016 with attempted unsuccessful recannulization of right tibioperoneal trunk. Recommended continuing with conservative management. 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 Dominant artery, reconstructed by collaterals. Severe stenosis at the mid circumflex artery and long segment of stenosis in the proximal LAD. EF 30 percent. Patient was sent for evaluation for possible bypass surgery. He was evaluated by Dr. Dale Thomas. He was considered to be high risk for bypass secondary to being high risk for infectious complications given his active psoriasis all over his body. Underwent cardiac catheterization 2 was staged intervention by Dr. Solis on [facility] 2016 and September 05, 2016 with 2.520 mm Promus drug-eluting stent deployed to the proximal left circumflex artery. Patient also had 2.2516 mm Promus drug-eluting stent to the mid LAD, and 2.2516 mm Promus drug-eluting stent to the diagonal with good results. Continue with conservative management at this point Hypertension, status post transient hypotension, blood pressure is poorly controlled. I restarted amlodipine 10 mg daily. Monitor blood pressure Hyperlipidemia, monitor lipids Acute on chronic renal insufficiency, slightly better. And tinea to monitor Renal artery stenosis, underwent right renal artery stenting by Dr. Solis on October 31, 2016. Continue to monitor. 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 History of multiple TIAs. Source was not identified. Maintained on aspirin. Mild bilateral carotid stenosis, ultrasound was done in April 2016. Continue to monitor Diabetes mellitus, followed and managed by primary care physician Lisha, still an active smoker working on smoking cessation, discussed and left smoking cessation History of psoriasis. History of bladder CA. Has been cancer free for 3 years. Followed at [facility] Clinical Quality Measures DVT/VTE Risk/Contraindication: Risk Factor Score Per Nursin RFS Level Per Nursing on Admit: 4+=Very High SALOME RUTHERFORD MD Apr 23, 2020 09:37
[2020-04-23] MEDS: CLOPIDOGREL 75 MG (PLAVIX) TABLET PO SCH (10:39)
[2020-04-23] MEDS: CARVEDILOL 12.5 MG (COREG) TABLET PO SCH ×2 (10:40→20:59)
[2020-04-23] MEDS: ASPIRIN E.C. 81 MG (ECOTRIN) TAB PO SCH (10:40)
[2020-04-23] MEDS: amLODIPine 10 MG (NORVASC) TAB PO SCH (10:40)
[2020-04-23] MEDS: ENOXAPARIN 40 MG/0.4 ML (LOVENOX) SYR SC SCH (10:41)
[2020-04-23] MEDS: FUROSEMIDE 40 MG (LASIX) TAB PO SCH (10:41)
[2020-04-23] MEDS: SENNOSIDES 8.6 MG (SENOKOT) TAB PO SCH ×2 (10:41→20:59)
--- NOTE | 2020-04-23 10:50 | Progress Note ---
Subjective Subjective Date Seen by Provider: Apr 23, 2020 Time Seen by Provider: 09:40 Pt continues to feel better, pt denies SOB, increased cough or phlem production, chest pain or palpitations. Pt still weak, needs assistance ambulating from bed to chair this morning. Pt peripheral parathesia has resolved. No new complaints at this time. VS stable. Creatinine 1.80 today from 2.16. Review of Systems General: No Chills, No Night Sweats; Fatigue, Malaise Pulmonary: No Dyspnea, No Cough, No Pleuritic Chest Pain Cardiovascular: No: Chest Pain, Palpitations, Orthopnea, Lt Headedness Gastrointestinal: No: Nausea, Vomiting, Abdominal Pain Neurological: Weakness Objective Exam Vital Signs Vital Signs - First Documented 04/20/20 04/20/20 14:40 21:00 Temp 34.4 Pulse 80 Resp 18 B/P (MAP) 202/118 (146) Pulse Ox 94 O2 Delivery Nasal Cannula O2 Flow Rate 6.00 FiO2 90 Capillary Refill : Less Than 3 SecondsLess Than 3 Seconds General Appearance: No Apparent Distress, WD/WN Eyes: Bilateral Eye Normal Inspection, Bilateral Eye PERRL, Bilateral Eye EOMI HEENT: PERRL/EOMI Neck: Full Range of Motion, Normal Inspection Respiratory: Chest Non Tender, No Accessory Muscle Use, No Respiratory Distress, Decreased Breath Sounds, Wheezing Cardiovascular: Regular Rate, Rhythm, No Murmur Gastrointestinal: Normal Bowel Sounds, Non Tender Rectal: Deferred Extremity: Normal Capillary Refill, Normal Inspection, Pedal Edema Neurologic/Psychiatric: Alert, Oriented x3, Normal Mood/Affect, policy services representative II-XII Norm as Tested Skin: Normal Color, Warm/Dry, Other (psoriais ) Results Lab Laboratory Tests 04/22/20 15:19: Glucometer 158H 04/22/20 20:22: Glucometer 200H 04/23/20 03:10: Sodium Level 137, Potassium Level 4.4, Chloride Level 98, Carbon Dioxide Level 25, Anion Gap 14, Blood Urea Nitrogen 33H, Creatinine 1.80H, Estimat Glomerular Filtration Rate 37, BUN/Creatinine Ratio 18, Glucose Level 149H, Calcium Level 8.4L, Magnesium Level 2.1 Microbiology 04/20/20 Blood Culture - Preliminary, Resulted No growth Assessment/Plan Assessment/Plan Admission Dx Acute on Chronic HFrEF Assessment and Plan Debility PT/OT banking services advisor consulted, appreciate assitance with placement Medically stable for discharge Acute on chronic HFrEF Resume home Lasix, increase dosing Remove villalobos catheter CKD Monitor COPD Continue Duoneb T2DM Levemir SSI HTN Continue home meds DVT prophylaxis: Lovenox MOLLY on CKD, resolved Problems: (1) Acute on chronic HFrEF (heart failure with reduced ejection fraction) (2) Acute kidney injury superimposed on chronic kidney disease (3) Debility Admission Dx Acute on Chronic HFrEF Clinical Quality Measures Admission Status Admission Dx Acute on Chronic HFrEF DVT/VTE Risk/Contraindication: Risk Factor Score Per Nursin RFS Level Per Nursing on Admit: 4+=Very High Supervisory-Addendum Brief Verification & Attestation Participated in pt care: history, MDM, physical Personally performed: exam, history, MDM, supervision of care Care discussed with: Medical Student Procedures: n/a Results interpretation: Verified all documentation Verification and Attestation of Medical Student E/M Service A medical student performed and documented this service in my presence. I reviewed and verified all information documented by the medical student and made modifications to such information, when appropriate. I personally performed the physical exam and medical decision making. Mindy Castillo, Apr 23, 2020,12:29 JENNIFER ALMARAZ MED STUDENT Apr 23, 2020 10:50 MINDY CASTILLO MD Apr 23, 2020 12:29
[2020-04-23] MEDS: DOCUSATE SODIUM 100 MG (COLACE) CAP PO SCH ×2 (11:06→20:58)
--- NOTE | 2020-04-23 13:05 | Physical Therapy Daily Note ---
PT Daily Note-Current Subjective Pt presents seated up in recliner upon arrival to room, requesting to use the restroom. Pt denies pain during treatment. Appearance Following session, pt in chair with BLEs elevated. Pt has tray, call light, and phone within reach and all needs met at this time. Mental Status Patient Orientation: Person, Place Attachments: Molina Catheter Transfers SCALE: Activities may be completed with or without assistive devices. 7-Mcbcrwtkku-qrgtuez completes the activity by him/herself with no assistance from a helper. 5-Set-up or Clean-up Assistance-helper sets up or cleans up; patient completes activity. [place] assists only prior to or following the activity. 4-Supervision or Touching Assistance-helper provides verbal cues and/or touching/steadying and/or contact guard assistance as patient completes activity. Assistance may be provided throughout the activity or intermittently. 3-Partial/Moderate Assistance-helper does LESS THAN HALF the effort. [place] lif ts, holds or supports trunk or limbs, but provides less than half the effort. 2-Substantial/Maximal Assistance-helper does MORE THAN HALF the effort. [place] lifts or holds trunk or limbs and provides more than half the effort. 8-Hihpxkopl-bfsvde does ALL the effort. Patient does none of the effort to complete the activity. Or, the assistance of 2 or more helpers is required for the patient to complete the activity. If activity was not attempted, code reason: 7-Patient Refused. 9-Not Applicable-not attempted and the patient did not perform the activity before the current illness, exacerbation or injury. 10-Not Attempted due to Environmental Limitations-(lack of equipment, weather restraints, etc.). 88-Not Attempted due to Medical Conditions or Safety Concerns. Sit to Stand (QC): 1 Pt transfers with sit to stand lift over to the [place], but unable to have BM at this time. Sit to stand lift used to return pt to seated in recliner chair. Weight Bearing Right Lower Extremity: Right Weight Bearing/Tolerated Left Lower Extremity: Left Weight Bearing/Tolerated Exercises Seated Therapy Exercises: Ankle pumps, Long arc quads, Hip flexion, Hamstring Curls, Hip abd/add Seated Reps: 15 Assessment Current Status: Fair Progress Pt continues to require sit to stand lift due to LE weakness and inability to safely transfer. Will continue to progress strength, and activity tolerance as able. PT Skilled Nursing Goals Skilled Nursing Goals PT Advertising Statistical Clerk Goals Time Frame: Apr 28, 2020 Roll Left & Right (QC): 6 Sit to Lying (QC): 6 Lying-Sitting on Side/Bed(QC): 6 Sit to Stand (QC): 4 Chair/Wly-eh-Epzfr Xfer(QC): 4 Toilet Transfer (QC): 4 Does the Patient Walk: Yes Walk 10 feet (QC): 4 Walk 50ft with 2 Turns (QC): 4 PT Plan Problem List Problem List: Activity Tolerance, Functional Strength, Safety, Balance, Gait, Transfer, Bed Mobility, ROM Treatment/Plan Treatment Plan: Continue Plan of Care Treatment Plan: Bed Mobility, Education, Functional Activity Vikram, Functional Strength, Gait, Safety, Therapeutic Exercise, Transfers Treatment Duration: May 05, 2020 Frequency: 6 times per week Estimated Hrs Per Day: .25 hour per day Patient and/or Family Agrees t: Yes Time/GCodes Time In: 920 Time Out: 935 Total Billed Treatment 1 visit FA (15') LUIS E LAFLEUR PT Apr 23, 2020 13:05
--- NOTE | 2020-04-23 13:38 | NUR ---
CM/SS follow up. This sw contacted the [facility] to verify they received referral yesterday. They stated they did and it was "sitting on the desk" but they just hadn't reviewed it yet. CM/SS contacted [facility] in [place], [place] to check on referral status. Today they are reporting they have never received a referral from this sw. CM/SS re-sent the referral and asked for a timely response. The contact people are Ricardo and Renetta. CM/SS contacted the patient's daughter Eli to give an update. She verbalized understanding. CM/SS will continue to follow.
[2020-04-23] MEDS: hydrALAZINE (APRESOLINE) 25 MG TAB PO SCH ×2 (14:00→21:00)
--- NOTE | 2020-04-23 14:23 | Occupational Ther Daily Note ---
OT Current Status-Daily Note Subjective Pt seated in recliner, agreeable to OT tx. Pt indicates soreness in his arms but does not verbalize pain rating. Mental Status/Objective Patient Orientation: Person, Confused ADL-Treatment Therapy Code Descriptions/Definitions Functional [place] Measure: 0=Not Assessed/NA 4=Minimal Assistance 1=Total Assistance 5=Supervision or Setup 2=Maximal Assistance 6=Modified [place] 3=Moderate Assistance 7=Complete IndependenceSCALE: Activities may be completed with or without assistive devices. 1-Kkgiizyxkh-wvgoeue completes the activity by him/herself with no assistance from a helper. 5-Set-up or Clean-up Assistance-helper sets up or cleans up; patient completes activity. [place] assists only prior to or following the activity. 4-Supervision or Touching Assistance-helper provides verbal cues and/or touching/steadying and/or contact guard assistance as patient completes activity. Assistance may be provided throughout the activity or intermittently. 3-Partial/Moderate Assistance-helper does LESS THAN HALF the effort. [place] lifts, holds or supports trunk or limbs, but provides less than half the effort. 2-Substantial/Maximal Assistance-helper does MORE THAN HALF the effort. [place] lifts or holds trunk or limbs and provides more than half the effort. 8-Mhtrjixhk-jmhahn does ALL the effort. Patient does none of the effort to complete the activity. Or, the assistance of 2 or more helpers is required for the patient to complete the activity. If activity was not attempted, code reason: 7-Patient Refused. 9-Not Applicable-not attempted and the patient did not perform the activity before the current illness, exacerbation or injury. 10-Not Attempted due to Environmental Limitations-(lack of equipment, weather restraints, etc.). 88-Not Attempted due to Medical Conditions or Safety Concerns. Other Treatment In order to increase BUE strength and functional endurance, pt performed x10 reps BUEs of the following movements: shoulder flexion, elbow flexion/extension, wrist flexion/extension, and finger flexion/extension. Pt distracted throughout tx, requiring cues for redirections, and demonstration during each exercise. Pt educated on the purpose and benefits of UE exercises, he verbalizes understanding. Post OT tx, pt seated in recliner, call light in reach and all needs met. Education OT Patient Education: Correct positioning, Modified ADL techniques, Progress toward Goal/Update tx plan, Purpose of tx/functional activities Teaching Recipient: Patient Teaching Methods: Demonstration, Discussion Response to Teaching: Verbalize Understanding, Return Demonstration, Reinforcement Needed OT Short Term Goals Short Term Goals Time Frame: Apr 28, 2020 Eatin Oral hygiene: 4 Toileting hygiene: 4 Shower/bathe self: 3 Upper body dressin Lower body dressin Putting on/taking off footwear: 3 OT Group Home Goals Group Home Goals Time Frame: May 05, 2020 Eating (QC): 6 Oral Hygiene (QC): 5 Toileting Hygiene (QC): 4 Shower/Bathe Self (QC): 4 Upper Body Dressing (QC): 5 Lower Body Dressing (QC): 4 On/Off Footwear (QC): 4 Additional Goals: 1-Demonstrate ADL Tasks, 2-Verbalize Understanding, 3- ImproveStrength/Vikram 1=Demonstrate adherence to instructed precautions during ADL tasks. 2=Patient will verbalize/demonstrate understanding of assistive devices/modifications for ADL. 3=Patient will improve strength/tolerance for activity to enable patient to perform ADL's. OT Education/Plan Problem List/Assessment Assessment: Decreased Activ Tolerance, Decreased UE Strength, Impaired Funct Balance, Impaired I ADL's, Impaired Self-Care Skills Discharge Recommendations Plan/Recommendations: Continue POC Treatment Plan/Plan of Care Patient would benefit from OT for education, treatment and training to promote independence in ADL's, mobility, safety and/or upper extremity function for ADL's. Plan of Care: ADL Retraining, Functional Mobility, UE Funct Exercise/Act Treatment Duration: May 05, 2020 Frequency: 5 times per week Estimated Hrs Per Day: .25 hour per day Agreement: Yes Rehab Potential: Fair Time/GCodes Start Time: 13:35 Stop Time: 13:45 Total Time Billed (hr/min): 10 Billed Treatment Time 1, EX MARIELLE MELARA OT Apr 23, 2020 14:23
[2020-04-23 16:18] VITALS: BP 170/80
--- NOTE | 2020-04-23 17:31 | NUR ---
Called and spoke [facility] staff. They are denying patient for admission d/t not having any isolation rooms available for the required 14 day isolation needed for the patient. Voiced appreciation for their notification and also asked that if in the future they would call us and let us know that would be appreciated.
--- NOTE | 2020-04-23 18:08 | NUR ---
Referral sent to [facility] in [place], [place]. They seem to be very interested in accepting the patient. Contacted Daughter Eli and visited about that. She is in agreement if patient is accepted. She is bringing his teeth and some other supplies to the hospital this evening for her dad. She voiced appreciation for all that we are doing for her dad. No further needs or concerns voiced at this time.
[2020-04-23 19:25] VITALS: BP 157/82
[2020-04-23 20:56] VITALS: BP 178/88
[2020-04-23] MEDS: FENOFIBRATE 134 MG (LOFIBRA) CAPSULE PO SCH (20:59)
[2020-04-23] MEDS: ROSUVASTATIN 20 MG (CRESTOR) TABLET PO SCH (20:59)
[2020-04-23] MEDS ORDERED: ROSUVASTATIN 20 MG (CRESTOR) TABLET PO SCH (21:00)
[2020-04-24 00:58] VITALS: BP 149/81
[2020-04-24] MEDS: RT-ALBUTEROL/IPRATROPIUM 3 ML (DUONEB) VIAL INH SCH ×6 (03:39→23:03)
[2020-04-24 04:08] VITALS: BP 169/86
[2020-04-24] MEDS: inSUlin ASPART (NovoLOG) 1 UNIT/0.01 ML (CHARGE PER UNIT) SC SCH ×6 (05:00→21:31)
[2020-04-24 05:19] LABS: POTASSIUM 4.8 MMOL/L (3.6-5.0)
[2020-04-24 05:20] LABS: CALCIUM 8.6 MG/DL (8.5-10.1)
[2020-04-24 05:24] LABS: CREATININE SERUM 1.47 MG/DL (0.60-1.30)
[2020-04-24 05:26] LABS: MAGNESIUM 2.1 MG/DL (1.6-2.4)
[2020-04-24] MEDS: hydrALAZINE (APRESOLINE) 25 MG TAB PO SCH ×3 (05:48→21:31)
[2020-04-24] MEDS ORDERED: inSUlin ASPART (NovoLOG) 1 UNIT/0.01 ML (CHARGE PER UNIT) SC SCH (07:30)
[2020-04-24 07:58] VITALS: BP 149/75
[2020-04-24] MEDS: ENOXAPARIN 40 MG/0.4 ML (LOVENOX) SYR SC SCH (08:48)
[2020-04-24] MEDS: amLODIPine 10 MG (NORVASC) TAB PO SCH (08:49)
[2020-04-24] MEDS: CARVEDILOL 12.5 MG (COREG) TABLET PO SCH ×2 (08:49→21:31)
[2020-04-24] MEDS: CLOPIDOGREL 75 MG (PLAVIX) TABLET PO SCH (08:49)
[2020-04-24] MEDS: FUROSEMIDE 40 MG (LASIX) TAB PO SCH (08:50)
[2020-04-24] MEDS: ASPIRIN E.C. 81 MG (ECOTRIN) TAB PO SCH (08:50)
[2020-04-24] MEDS: DOCUSATE SODIUM 100 MG (COLACE) CAP PO SCH ×2 (08:50→21:31)
[2020-04-24] MEDS: SENNOSIDES 8.6 MG (SENOKOT) TAB PO SCH ×2 (08:50→21:31)
--- NOTE | 2020-04-24 10:12 | Cardiology Progress Note ---
Subjective Date Seen by Provider: Apr 24, 2020 Time Seen by Provider: 10:10 Subjective/Events-last exam Patient was seen at bedside, sitting comfortably, receiving physical therapy Review of Systems General: No Chills, No Night Sweats; Fatigue, Malaise; No Appetite, No Other HEENT: No Head Aches, No Visual Changes, No Eye Pain, No Ear Pain, No Dysphasia, No Sinus Congestion, No Post Nasal Drip, No Sore Throat, No Other Pulmonary: Dyspnea; No Cough, No Pleuritic Chest Pain, No Other Cardiovascular: Edema; No: Chest Pain, Palpitations, Orthopnea, Paroxysmal Noc. Dyspnea, Lt Headedness, Other Objective-Cardiology Exam Last Set of Vital Signs Vital Signs 04/20/20 04/21/20 04/24/20 21:00 11:41 07:58 Temp 36.4 Pulse 78 Resp 18 B/P (MAP) 149/75 (99) Pulse Ox 92 O2 Delivery Room Air O2 Flow Rate 50.00 FiO2 90 Capillary Refill : Less Than 3 SecondsLess Than 3 Seconds I&O Intake and Output 04/24/20 00:00 Intake Total 1665 ml Output Total 2125 ml Balance -460 ml Intake Oral 1665 ml Output Urine Total 2125 ml # Voids 1 # Bowel Movements 1 General: Alert, Oriented X3, Cooperative HEENT: Atraumatic, PERRLA Neck: Supple, No JVD, No Thyromegaly Lungs: Normal Air Movement, Other (bilateral rhonchi) Heart: Regular Rate, Normal S1, Normal S2, No Murmurs Abdomen: Normal Bowel Sounds, Soft, No Tenderness, No Hepatosplenomegaly, No Masses Extremities: No Clubbing, No Cyanosis, Normal Pulses, No Tenderness/Swelling, Other (mild edema) Skin: No Rashes, No Breakdown, No Significant Lesion Neuro: Normal Speech, Normal Tone, Other (numbness in the feet) Psych/Mental Status: Mental Status NL, Mood NL Results Lab Laboratory Tests 04/24/20 04:25 A/P-Cardiology Admission Diagnosis Congestive heart failure Coronary artery disease Hypertension Hyperlipidemia Assessment/Plan Congestive heart failure, acute on chronic left ventricular systolic dysfunction, probably ischemic in nature, ejection fraction 30-35 percent, resp onded well to diuretics, continue with Lasix and monitor Patient is unable to tolerate KRYS inhibitor and/or ARB due to renal failure, I will do another trial with losartan and monitor renal function closely Mildly elevated troponin, likely type II [place] secondary to CHF. EKG showing no acute ST changes, denies any chest pain. Conservative management is recommended Peripheral arterial disease, history of complex intervention on the right lower extremity in 2017 with 2 stent deployment self-expanding Innova 7 x 100 proximally and 6 x 80 distally with excellent results. Total occlusion below the knee, attempt to intervene on it without success, patient was referred to Dr. Solis where he underwent peripheral angiogram on October 31, 2016 with attempted unsuccessful recannulization of right tibioperoneal trunk. Recommended continui ng with conservative management. 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 Dominant artery, reconstructed by collaterals. Severe stenosis at the mid circumflex artery and long segment of stenosis in the proximal LAD. EF 30 percent. Patient was sent for evaluation for possible bypass surgery. He was evaluated by Dr. Dale Thomas. He was considered to be high risk for bypass secondary to being high risk for infectious complications given his active psoriasis all over his body. Underwent cardiac catheterization 2 was staged intervention by Dr. Solis on August 29, 2016 and September 05, 2016 with 2.520 mm Promus drug-eluting stent deployed to the proximal left circumflex artery. Patient also had 2.2516 mm Promus drug-eluting stent to the mid LAD, and 2.2516 mm Promus drug-eluting stent to the diagonal with good results. Continue with conservative management at this point Hypertension, status post transient hypotension, better controlled blood pressur e. Continue to monitor Hyperlipidemia, monitor lipids Acute on chronic renal insufficiency, slightly better. And tinea to monitor Renal artery stenosis, underwent right renal artery stenting by Dr. Solis on October 31, 2016. Continue to monitor. 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 History of multiple TIAs. Source was not identified. Maintained on aspirin. Mild bilateral carotid stenosis, ultrasound was done in April 2016. Continue to monitor Diabetes mellitus, followed and managed by primary care physician Tobaccoism, still an active smoker working on smoking cessation, discussed and left smoking cessation History of psoriasis. History of bladder CA. Has been cancer free for 3 years. Followed at the [place] Clinical Quality Measures DVT/VTE Risk/Contraindication: Risk Factor Score Per Nursin RFS Level Per Nursing on Admit: 4+=Very High SALOME RUTHERFORD MD Apr 24, 2020 10:12
[2020-04-24] MEDS ORDERED: LOSARTAN 25 MG (COZAAR) TAB PO SCH (10:15)
[2020-04-24 12:00] VITALS: BP 143/78
--- NOTE | 2020-04-24 12:43 | Physical Therapy Daily Note ---
PT Daily Note-Current Subjective Pt. up in chair, agrees to exercises. States he has been up in the chair awhile. No c/o pain. During session, patient noted to be incontinent of bowels. Transfers SCALE: Activities may be completed with or without assistive devices. 2-Sxdxrutqmr-hjhcoye completes the activity by him/herself with no assistance from a helper. 5-Set-up or Clean-up Assistance-helper sets up or cleans up; patient completes activity. [place] assists only prior to or following the activity. 4-Supervision or Touching Assistance-helper provides verbal cues and/or touching/steadying and/or contact guard assistance as patient completes activity. Assistance may be provided throughout the activity or intermittently. 3-Partial/Moderate Assistance-helper does LESS THAN HALF the effort. [place] lifts, holds or supports trunk or limbs, but provides less than half the effort. 2-Substantial/Maximal Assistance-helper does MORE THAN HALF the effort. [place] lifts or holds trunk or limbs and provides more than half the effort. 6-Djgmhcilw-ddbjeb does ALL the effort. Patient does none of the effort to complete the activity. Or, the assistance of 2 or more helpers is required for the patient to complete the activity. If activity was not attempted, code reason: 7-Patient Refused. 9-Not Applicable-not attempted and the patient did not perform the activity before the current illness, exacerbation or injury. 10-Not Attempted due to Environmental Limitations-(lack of equipment, weather restraints, etc.). 88-Not Attempted due to Medical Conditions or Safety Concerns. Sit to Stand (QC): 1 utilized sit to stand lift for pericare. attempted to stand x 2 attempts but patient unable to complete. Weight Bearing Right Lower Extremity: Right Weight Bearing/Tolerated Left Lower Extremity: Left Weight Bearing/Tolerated Gait Training Does the Patient Walk?: No and Walking Goal IS indicated Exercises Seated Therapy Exercises: Ankle pumps, Long arc quads, Hip flexion, Hamstring Curls, Hip abd/add, Glut set Seated Reps: 20 Treatments LE exercise, pericare using sit to stand lift Assessment Current Status: Fair Progress Pt. does well with exercises, attempted to stand x 2 from chair and patient unable. Pt. noted to have bowel incontinence during session and utilized the sit to stand lift for pericare. Pt. remained up in bedside chair with call light and all needs met. PT Correction Goals Meeting Coordinator Goals PT Meeting Coordinator Goals Time Frame: Apr 28, 2020 Roll Left & Right (QC): 6 Sit to Lying (QC): 6 Lying-Sitting on Side/Bed(QC): 6 Sit to Stand (QC): 4 Chair/Zrv-tu-Rkmzk Xfer(QC): 4 Toilet Transfer (QC): 4 Does the Patient Walk: Yes Walk 10 feet (QC): 4 Walk 50ft with 2 Turns (QC): 4 PT Plan Treatment/Plan Treatment Plan: Continue Plan of Care Treatment Plan: Bed Mobility, Education, Functional Activity Vikram, Functional Strength, Gait, Safety, Therapeutic Exercise, Transfers Treatment Duration: May 05, 2020 Frequency: 6 times per week Estimated Hrs Per Day: .25 hour per day Patient and/or Family Agrees t: Yes Time/GCodes Time In: 0855 Time Out: 924 Total Billed Treatment Time: 30 Total Billed Treatment 1, Ex 10', FA 20' MIRIAM JONES PT Apr 24, 2020 12:43
--- NOTE | 2020-04-24 13:07 | Progress Note - Hospitalist ---
Subjective HPI/CC On Admission Date Seen by Provider: Apr 24, 2020 Time Seen by Provider: 09:00 Subjective/Events-last exam He is working with therapy. He denies trouble breathing. He is not having pain. He feels like he is getting better. Objective Exam Vital Signs Vital Signs Date Time Temp Pulse Resp B/P (MAP) Pulse Ox O2 Delivery O2 Flow Rate FiO2 04/24/20 12:00 36.1 65 18 143/78 (99) 95 Room Air 04/21/20 11:41 50.00 04/20/20 21:00 90 Capillary Refill : Less Than 3 SecondsLess Than 3 Seconds General Appearance: No Apparent Distress, Chronically ill Respiratory: Lungs Clear, Normal Breath Sounds, No Respiratory Distress Cardiovascular: Regular Rate, Rhythm, No Murmur Gastrointestinal: Normal Bowel Sounds, Non Tender, Soft Extremity: Normal Inspection, Pedal Edema Neurologic/Psychiatric: Alert, Oriented x3, Normal Mood/Affect, Motor Weakness Skin: Normal Color, Warm/Dry Results/Procedures Lab Laboratory Tests 04/24/20 04:25 Patient resulted labs reviewed. Assessment/Plan Assessment and Plan Assess & Plan/Chief Complaint Debility PT/OT media services director consulted, appreciate assitance with placement Medically stable for discharge, awaiting placement Acute on chronic HFrEF Continue Lasix CKD Monitor COPD Continue Duoneb T2DM Levemir SSI HTN Continue Hydralazine, Amlodpine, Coreg Increase Losartan DVT prophylaxis: Lovenox MOLLY on CKD, resolved Diagnosis/Problems Diagnosis/Problems (1) Debility Status: Acute (2) Acute on chronic HFrEF (heart failure with reduced ejection fraction) Status: Resolved Resolution Date/Time: 04/24/20 @ 13:06 (3) Acute kidney injury superimposed on chronic kidney disease Status: Resolved Resolution Date/Time: 04/24/20 @ 13:06 Clinical Quality Measures DVT/VTE Risk/Contraindication: Risk Factor Score Per Nursin RFS Level Per Nursing on Admit: 4+=Very High JUAN DANIEL CASTILLO MD Apr 24, 2020 13:07
[2020-04-24] MEDS ORDERED: LOSARTAN 25 MG (COZAAR) TAB PO ONE (13:15)
[2020-04-24 16:05] VITALS: BP 131/70
[2020-04-24 20:00] VITALS: BP 160/87
[2020-04-24] MEDS: FENOFIBRATE 134 MG (LOFIBRA) CAPSULE PO SCH (21:31)
[2020-04-24] MEDS: ROSUVASTATIN 20 MG (CRESTOR) TABLET PO SCH (21:31)
[2020-04-25] VITALS (9 sets, daily range): BP systolic 124–164; BP diastolic 58–90
[2020-04-25] MEDS: RT-ALBUTEROL/IPRATROPIUM 3 ML (DUONEB) VIAL INH SCH ×2 (02:41→06:28)
[2020-04-25 05:01] LABS: POTASSIUM 4.5 MMOL/L (3.6-5.0)
[2020-04-25 05:02] LABS: CALCIUM 8.3 MG/DL (8.5-10.1)
[2020-04-25 05:07] LABS: CREATININE SERUM 1.45 MG/DL (0.60-1.30)
[2020-04-25 05:09] LABS: MAGNESIUM 2.1 MG/DL (1.6-2.4)
[2020-04-25] MEDS: inSUlin ASPART (NovoLOG) 1 UNIT/0.01 ML (CHARGE PER UNIT) SC SCH ×7 (05:14→21:27)
[2020-04-25] MEDS: hydrALAZINE (APRESOLINE) 25 MG TAB PO SCH ×3 (06:50→21:29)
--- NOTE | 2020-04-25 07:04 | NUR ---
0500-pt pulled out iv 0530-this rn & Renato both attempted(2 times each) to restart IV with no success. 0640-this rn called dr. hameed to inform him of this situation-order to leave iv out.
[2020-04-25] MEDS: ENOXAPARIN 40 MG/0.4 ML (LOVENOX) SYR SC SCH (08:33)
[2020-04-25] MEDS: FUROSEMIDE 40 MG (LASIX) TAB PO SCH (08:35)
[2020-04-25] MEDS: CLOPIDOGREL 75 MG (PLAVIX) TABLET PO SCH (08:35)
[2020-04-25] MEDS: CARVEDILOL 12.5 MG (COREG) TABLET PO SCH ×2 (08:35→21:29)
[2020-04-25] MEDS: DOCUSATE SODIUM 100 MG (COLACE) CAP PO SCH ×2 (08:35→21:29)
[2020-04-25] MEDS: ASPIRIN E.C. 81 MG (ECOTRIN) TAB PO SCH (08:35)
[2020-04-25] MEDS: amLODIPine 10 MG (NORVASC) TAB PO SCH (08:35)
[2020-04-25] MEDS: SENNOSIDES 8.6 MG (SENOKOT) TAB PO SCH ×2 (08:35→21:29)
[2020-04-25] MEDS ORDERED: LOSARTAN 25 MG (COZAAR) TAB PO SCH ×2 (09:00)
--- NOTE | 2020-04-25 10:36 | Cardiology Progress Note ---
Subjective Date Seen by Provider: Apr 25, 2020 Time Seen by Provider: 10:33 Subjective/Events-last exam Patient is laying down in bed, complaining of cough productive of greenish sputum Review of Systems General: No Chills, No Night Sweats; Fatigue, Malaise; No Appetite, No Other HEENT: No Head Aches, No Visual Changes, No Eye Pain, No Ear Pain, No Dysphasia, No Sinus Congestion, No Post Nasal Drip, No Sore Throat, No Other Pulmonary: No Dyspnea; Cough; No Pleuritic Chest Pain, No Other Cardiovascular: No: Chest Pain, Palpitations, Orthopnea, Paroxysmal Noc. Dyspnea, Edema, Lt Headedness, Other Objective-Cardiology Exam Last Set of Vital Signs Vital Signs 04/20/20 04/21/20 04/25/20 04/25/20 21:00 11:41 07:20 09:00 Temp 36.4 Pulse 76 Resp 16 B/P (MAP) 164/90 (114) Pulse Ox 94 O2 Delivery Room Air O2 Flow Rate 50.00 FiO2 90 Capillary Refill : Less Than 3 SecondsLess Than 3 Seconds I&O Intake and Output 04/25/20 00:00 Intake Total 2515 ml Output Total 2750 ml Balance -235 ml Intake Oral 2515 ml Output Urine Total 2750 ml # Voids 5 General: Alert, Oriented X3, Cooperative HEENT: Atraumatic, PERRLA Neck: Supple, No JVD, No Thyromegaly Lungs: Normal Air Movement, Other (bilateral rhonchi) Heart: Regular Rate, Normal S1, Normal S2, No Murmurs Abdomen: Normal Bowel Sounds, Soft, No Tenderness, No Hepatosplenomegaly, No Masses Extremities: No Clubbing, No Cyanosis, Normal Pulses, No Tenderness/Swelling, Other (mild edema) Skin: No Rashes, No Breakdown, No Significant Lesion Neuro: Normal Speech, Normal Tone, Other (numbness in the feet) Psych/Mental Status: Mental Status NL, Mood NL Results Lab Laboratory Tests 04/25/20 04:10 A/P-Cardiology Admission Diagnosis Congestive heart failure Coronary artery disease Hypertension Hyperlipidemia Assessment/Plan Congestive heart failure, acute on chronic left ventricular systolic dysfunction, probably ischemic in nature, ejection fraction 30-35 percent, responded well to diuretics, continue with Lasix and monitor Patient is unable to tolerate KRYS inhibitor and/or ARB due to renal failure, I started him on another trial of losartan and I will evaluate tolerance and response Cough productive of yellowish-green sputum, mild dyspnea. I will repeat chest x-ray, reevaluate CBC and CMP Mildly elevated troponin, likely type II [place] secondary to CHF. EKG showing no acute ST changes, denies any chest pain. Conservative management is recommended Peripheral arterial disease, history of complex intervention on the right lower extremity in 2017 with 2 stent deployment self-expanding Innova 7 x 100 proximal ly and 6 x 80 distally with excellent results. Total occlusion below the knee, attempt to intervene on it without success, patient was referred to Dr. Solis where he underwent peripheral angiogram on October 31, 2016 with attempted unsuccessful recannulization of right tibioperoneal trunk. Recommended continuing with conservative management. 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 Dominant artery, reconstructed by collaterals. Severe stenosis at the mid circumflex artery and long segment of stenosis in the proximal LAD. EF 30 percent. Patient was sent for evaluation for possible bypass surgery. He was evaluated by Dr. Dale Thomas. He was considered to be high risk for bypass secondary to being high risk for infectious complications given his active psoriasis all over his body. Underwent cardiac catheterization 2 was staged intervention by Dr. Solis on August 29, 2016 and September 05, 2016 with 2.520 mm Promus drug-eluting stent deployed to the proximal left circumflex artery. Patient also had 2.2516 mm Promus drug-eluting stent to the mid LAD, and 2.2516 mm Promus drug-eluting stent to the diagonal with good results. Continue with conservative management at this point Hypertension, status post transient hypotension, better controlled blood pressure. Continue to monitor Hyperlipidemia, monitor lipids Acute on chronic renal insufficiency, slightly better. And tinea to monitor Renal artery stenosis, underwent right renal artery stenting by Dr. Solis on October 31, 2016. Continue to monitor. 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 History of multiple TIAs. Source was not identified. Maintained on aspirin. Mild bilateral carotid stenosis, ultrasound was done in April 2016. Continue to monitor Diabetes mellitus, followed and managed by primary care physician Lisha, still an active smoker working on smoking cessation, discussed and left smoking cessation History of psoriasis. History of bladder CA. Has been cancer free for 3 years. Followed at the [place] Clinical Quality Measures DVT/VTE Risk/Contraindication: Risk Factor Score Per Nursin RFS Level Per Nursing on Admit: 4+=Very High SALOME RUTHERFORD MD Apr 25, 2020 10:36
--- NOTE | 2020-04-25 12:10 | Progress Note - Hospitalist ---
Subjective HPI/CC On Admission Date Seen by Provider: Apr 25, 2020 Time Seen by Provider: 10:10 Subjective/Events-last exam He is having some sputum production today. He denies shortness of breath. He denies fevers. He has been eating and drinking. He remains weak. Objective Exam Vital Signs Vital Signs Date Time Temp Pulse Resp B/P (MAP) Pulse Ox O2 Delivery O2 Flow Rate FiO2 04/25/20 11:22 36.6 76 18 131/74 (93) 95 Room Air 04/21/20 11:41 50.00 04/20/20 21:00 90 Capillary Refill : Less Than 3 SecondsLess Than 3 Seconds General Appearance: No Apparent Distress, Chronically ill Respiratory: No Respiratory Distress, Rhonci Cardiovascular: Regular Rate, Rhythm, No Murmur Gastrointestinal: Normal Bowel Sounds, Non Tender, Soft Extremity: Normal Inspection, Non Tender, Pedal Edema Neurologic/Psychiatric: Alert, Oriented x3, Normal Mood/Affect, Motor Weakness Skin: Warm/Dry, Other (diffuse psoriasis) Results/Procedures Lab Laboratory Tests 04/25/20 04:10 Patient resulted labs reviewed. Assessment/Plan Assessment and Plan Assess & Plan/Chief Complaint Debility PT/OT food and nutrition services supervisor consulted, appreciate assitance with placement Medically stable for discharge, awaiting placement Acute on chronic HFrEF Continue Lasix CKD Monitor COPD Continue Duoneb T2DM Levemir SSI HTN Continue Hydralazine, Amlodpine, Coreg Increase Losartan DVT prophylaxis: Lovenox MOLLY on CKD, resolved Diagnosis/Problems Diagnosis/Problems (1) Debility Status: Acute (2) Acute on chronic HFrEF (heart failure with reduced ejection fraction) Status: Resolved Resolution Date/Time: 04/24/20 @ 13:06 (3) Acute kidney injury superimposed on chronic kidney disease Status: Resolved Resolution Date/Time: 04/24/20 @ 13:06 Clinical Quality Measures DVT/VTE Risk/Contraindication: Risk Factor Score Per Nursin RFS Level Per Nursing on Admit: 4+=Very High JUAN DANIEL CASTILLO MD Apr 25, 2020 12:10
[2020-04-25] MEDS ORDERED: guaiFENesin (MUCINEX) 600 MG TAB PO ONE (12:15)
--- NOTE | 2020-04-25 13:02 | Diagnostic Imaging Report ---
Indication: Productive cough. Time of exam 12:51 PM Comparison is made with prior chest from 04/20/2020. The heart is enlarged. There has been some improved aeration to the lungs however there continues to be infiltrate in the left base obscuring the left hemidiaphragm. There may be some infiltrate in the right perihilar region as well. Small left effusion. No pneumothorax is detected. IMPRESSION: Central congestion with a left basilar infiltrate and pleural fluid. There has been some improved aeration since examination 5 days earlier. Dictated by: Dictated on workstation # [id number]
--- NOTE | 2020-04-25 14:44 | NUR ---
RESULTS OF CHEST X RAY CALLED TO DR CASTILLO
[2020-04-25 14:46] LABS: BASOPHILS # (AUTO) 0.1 10^3/uL (0.0-0.1); BASOPHILS % (AUTO) 1 % (0-10); EOSINOPHILS # (AUTO) 0.3 10^3/uL (0.0-0.3); EOSINOPHILS % (AUTO) 4 % (0-10); HEMATOCRIT 51 % (40-54); HEMOGLOBIN 15.9 g/dL (13.3-17.7); LYMPHOCYTES # (AUTO) 1.5 10^3/uL (1.0-4.0); LYMPHOCYTES % (AUTO) 21 % (12-44); MEAN CORPUSCULAR HEMOGLOBIN 29 pg (25-34); MEAN CORPUSCULAR HGB CONC 31 g/dL (32-36); MEAN CORPUSCULAR VOLUME 91 fL (80-99); MEAN PLATELET VOLUME 12.5 fL (9.0-12.2); MONOCYTES # (AUTO) 0.6 10^3/uL (0.0-1.0); MONOCYTES % (AUTO) 8 % (0-12); NEUTROPHILS % (AUTO) 67 % (42-75); PLATELET COUNT 230 10^3/uL (130-400); WHITE BLOOD COUNT 7.4 10^3/uL (4.3-11.0)
[2020-04-25] MEDS ORDERED: predniSONE 20 MG TAB PO ONE (16:15)
[2020-04-25] MEDS: TAMSULOSIN 0.4 MG (FLOMAX) CAP PO SCH (17:19)
[2020-04-25] MEDS: FENOFIBRATE 134 MG (LOFIBRA) CAPSULE PO SCH (21:29)
[2020-04-25] MEDS: guaiFENesin (MUCINEX) 600 MG TAB PO SCH (21:29)
[2020-04-25] MEDS: ROSUVASTATIN 20 MG (CRESTOR) TABLET PO SCH (21:30)
[2020-04-26] MEDS: RT-ALBUTEROL/IPRATROPIUM 3 ML (DUONEB) VIAL INH PRN (02:03)
[2020-04-26 04:04] VITALS: BP 142/73
[2020-04-26 06:00] LABS: MEAN PLATELET VOLUME 12.4 fL (9.0-12.2); WHITE BLOOD COUNT 7.3 10^3/uL (4.3-11.0)
[2020-04-26 06:04] LABS: ALBUMIN 2.9 GM/DL (3.2-4.5)
[2020-04-26 06:05] LABS: POTASSIUM 5.7 MMOL/L (3.6-5.0)
[2020-04-26 06:06] LABS: CALCIUM 8.4 MG/DL (8.5-10.1)
[2020-04-26 06:07] LABS: TOTAL PROTEIN 5.6 GM/DL (6.4-8.2)
[2020-04-26 06:09] LABS: BILIRUBIN,TOTAL 0.4 MG/DL (0.1-1.0)
[2020-04-26 06:11] LABS: CREATININE SERUM 1.78 MG/DL (0.60-1.30)
[2020-04-26] MEDS: inSUlin ASPART (NovoLOG) 1 UNIT/0.01 ML (CHARGE PER UNIT) SC SCH ×7 (06:11→21:34)
[2020-04-26 06:14] LABS: MAGNESIUM 2.3 MG/DL (1.6-2.4)
[2020-04-26 06:41] VITALS: BP 160/84
[2020-04-26] MEDS: hydrALAZINE (APRESOLINE) 25 MG TAB PO SCH ×3 (06:49→21:25)
[2020-04-26] MEDS: predniSONE 20 MG TAB PO SCH (06:49)
[2020-04-26 08:00] VITALS: BP 131/67
[2020-04-26] MEDS: amLODIPine 10 MG (NORVASC) TAB PO SCH (09:01)
[2020-04-26] MEDS: ENOXAPARIN 40 MG/0.4 ML (LOVENOX) SYR SC SCH (09:01)
[2020-04-26] MEDS: CARVEDILOL 12.5 MG (COREG) TABLET PO SCH ×2 (09:02→21:17)
[2020-04-26] MEDS: DOCUSATE SODIUM 100 MG (COLACE) CAP PO SCH ×2 (09:02→21:17)
[2020-04-26] MEDS: CLOPIDOGREL 75 MG (PLAVIX) TABLET PO SCH (09:02)
[2020-04-26] MEDS: SENNOSIDES 8.6 MG (SENOKOT) TAB PO SCH ×2 (09:02→21:18)
[2020-04-26] MEDS: guaiFENesin (MUCINEX) 600 MG TAB PO SCH ×2 (09:02→21:25)
[2020-04-26] MEDS: FUROSEMIDE 40 MG (LASIX) TAB PO SCH (09:02)
[2020-04-26] MEDS: ASPIRIN E.C. 81 MG (ECOTRIN) TAB PO SCH (09:02)
--- NOTE | 2020-04-26 09:02 | Cardiology Progress Note ---
Subjective Date Seen by Provider: Apr 26, 2020 Time Seen by Provider: 08:57 Subjective/Events-last exam Patient in bed, denies chest pain. C/o some mild dyspnea and cough Review of Systems General: No Chills, No Night Sweats; Fatigue, Malaise; No Appetite, No Other HEENT: No Head Aches, No Visual Changes, No Eye Pain, No Ear Pain, No Dysphasia, No Sinus Congestion, No Post Nasal Drip, No Sore Throat, No Other Pulmonary: Dyspnea; No Cough, No Pleuritic Chest Pain, No Other Cardiovascular: No: Chest Pain, Palpitations, Orthopnea, Paroxysmal Noc. Dyspnea, Edema, Lt Headedness, Other Objective-Cardiology Exam Last Set of Vital Signs Vital Signs 04/20/20 04/21/20 04/26/20 04/26/20 21:00 11:41 08:00 09:00 Temp 36.2 Pulse 77 Resp 18 B/P (MAP) 131/67 (88) Pulse Ox 91 O2 Delivery Room Air O2 Flow Rate 50.00 FiO2 90 Capillary Refill : Less Than 3 SecondsLess Than 3 Seconds I&O Intake and Output 04/26/20 00:00 Intake Total 930 ml Output Total 600 ml Balance 330 ml Intake Oral 930 ml Output Urine Total 600 ml # Voids 8 General: Alert, Oriented X3, Cooperative HEENT: Atraumatic, PERRLA Neck: Supple, No JVD, No Thyromegaly Lungs: Normal Air Movement, Other (bilateral rhonchi) Heart: Regular Rate, Normal S1, Normal S2, No Murmurs Abdomen: Normal Bowel Sounds, Soft, No Tenderness, No Hepatosplenomegaly, No Masses Extremities: No Clubbing, No Cyanosis, Normal Pulses, No Tenderness/Swelling, Other (mild edema) Skin: No Rashes, No Breakdown, No Significant Lesion Neuro: Normal Speech, Normal Tone, Other (numbness in the feet) Psych/Mental Status: Mental Status NL, Mood NL Results Lab Laboratory Tests 04/26/20 05:16 04/26/20 08:56 A/P-Cardiology Admission Diagnosis Congestive heart failure Coronary artery disease Hypertension Hyperlipidemia Assessment/Plan Congestive heart failure, acute on chronic left ventricular systolic dysfunction, probably ischemic in nature, ejection fraction 30-35 percent, r esponded well to diuretics, continue with Lasix and monitor Patient is unable to tolerate KRYS inhibitor and/or ARB due to renal failure and hyperkalemia Cough productive of yellowish-green sputum, mild dyspnea. CXR showing left basilar infiltrate with some improvement compared to previous CXR. Continue to monitor. Mildly elevated troponin, likely type II IN secondary to CHF. EKG showing no acute ST changes, denies any chest pain. Conservative management is recommended Peripheral arterial disease, history of complex intervention on the right lower extremity in 2017 with 2 stent deployment self-expanding Innova 7 x 100 proximally and 6 x 80 distally with excellent results. Total occlusion below the knee, attempt to intervene on it without success, patient was referred to Dr. Solis where he underwent peripheral angiogram on October 31, 2016 with attempted unsuccessful recannulization of right tibioperoneal trunk. Recommended continuing with conservative management. 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 Dominant artery, reconstructed by collaterals. Severe stenosis at the mid circumflex artery and long segment of stenosis in the proximal LAD. EF 30 percent. Patient was sent for evaluation for possible bypass surgery. He was evaluated by Dr. Dale Thomas. He was considered to be high risk for bypass secondary to being high risk for infectious complications given his active psoriasis all over his body. Underwent cardiac catheterization 2 was staged intervention by Dr. Solis on August 29, 2016 and September 05, 2016 with 2.520 mm Promus drug-eluting stent deployed to the proximal left circumflex artery. Patient also had 2.2516 mm Promus drug-eluting stent to the mid LAD, and 2.2516 mm Promus drug-eluting stent to the diagonal with good results. Continue with conservative management at this point Hypertension, status post transient hypotension, elevated blood pressure probably secondary to steroids. Continue on current medications and monitor Hyperlipidemia, monitor lipids Acute on chronic renal insufficiency, slightly better. And tinea to monitor Renal artery stenosis, underwent right renal artery stenting by Dr. Solis on October 31, 2016. Continue to monitor. 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 History of multiple TIAs. Source was not identified. Maintained on aspirin. Mild bilateral carotid stenosis, ultrasound was done in April 2016. Continue to monitor Diabetes mellitus, followed and managed by primary care physician Lisha, still an active smoker working on smoking cessation, discussed and left smoking cessation History of psoriasis. History of bladder CA. Has been cancer free for 3 years. Followed at [facility] Patient was seen and evaluated with Belinda, examination performed, management plan was discussed, agree with the current scribed note, I made few changes to the note using Italic font Patient was seen at bedside, laying down comfortably, no new complaint Noted to have elevated potassium level and worsening renal function, I will discontinue losartan Elevated blood pressure could be secondary to steroid treatment. Patient is maintained on amlodipine and hydralazine. Continue to monitor Continue with physical therapy Clinical Quality Measures DVT/VTE Risk/Contraindication: Risk Factor Score Per Nursin RFS Level Per Nursing on Admit: 4+=Very High BELINDA CARRILLO Apr 26, 2020 09:02 SALOME RUTHERFORD MD Apr 26, 2020 10:22
[2020-04-26 09:12] LABS: POTASSIUM 5.4 MMOL/L (3.6-5.0)
[2020-04-26 09:13] LABS: CALCIUM 8.2 MG/DL (8.5-10.1)
[2020-04-26 09:17] LABS: CREATININE SERUM 1.92 MG/DL (0.60-1.30)
--- NOTE | 2020-04-26 09:29 | Progress Note - Hospitalist ---
Subjective HPI/CC On Admission Date Seen by Provider: Apr 26, 2020 Time Seen by Provider: 09:23 Subjective/Events-last exam Pt reports doing well. No complaints. Awaiting insurance approval for NH placement in [place]. Objective Exam Vital Signs Vital Signs Date Time Temp Pulse Resp B/P (MAP) Pulse Ox O2 Delivery O2 Flow Rate FiO2 04/26/20 08:00 36.2 77 18 131/67 (88) 91 Room Air 04/21/20 11:41 50.00 04/20/20 21:00 90 Capillary Refill : Less Than 3 SecondsLess Than 3 Seconds General Appearance: No Apparent Distress, Chronically ill, Obese Cardiovascular: Regular Rate, Rhythm, No Murmur Gastrointestinal: Normal Bowel Sounds, Non Tender, Soft Neurologic/Psychiatric: Alert, Oriented x3, Normal Mood/Affect Results/Procedures Lab Laboratory Tests 04/26/20 05:16 04/26/20 08:56 Patient resulted labs reviewed. Assessment/Plan Assessment and Plan Assess & Plan/Chief Complaint Debility PT/OT surgical services manager consulted, appreciate assitance with placement Medically stable for discharge, awaiting placement Acute on chronic HFrEF Continue Lasix but DC dose due to increasing creatinine CKD Hyperkalemia- mild Monitor K mildly elevated today,Potassium supplementation and Losartan held Had already received insulin and lasix this AM so will recheck BMP now COPD Continue Duoneb T2DM Levemir SSI HTN Continue Hydralazine, Amlodpine, Coreg Increase Losartan DVT prophylaxis: Lovenox MOLLY on CKD, resolved Clinical Quality Measures DVT/VTE Risk/Contraindication: Risk Factor Score Per Nursin RFS Level Per Nursing on Admit: 4+=Very High LAKEISHA CHU MD Apr 26, 2020 09:29
--- NOTE | 2020-04-26 10:24 | Physical Therapy Daily Note ---
PT Daily Note-Current Subjective Patient agrees to PT. Donna lift outside of room. Mental Status Patient Orientation: Normal For Age Transfers SCALE: Activities may be completed with or without assistive devices. 3-Yheowlsjvn-mksjxax completes the activity by him/herself with no assistance from a helper. 5-Set-up or Clean-up Assistance-helper sets up or cleans up; patient completes activity. [place] assists only prior to or following the activity. 4-Supervision or Touching Assistance-helper provides verbal cues and/or touching/steadying and/or contact guard assistance as patient completes activity. Assistance may be provided throughout the activity or intermittently. 3-Partial/Moderate Assistance-helper does LESS THAN HALF the effort. [place] lifts, holds or supports trunk or limbs, but provides less than half the effort. 2-Substantial/Maximal Assistance-helper does MORE THAN HALF the effort. [place] lifts or holds trunk or limbs and provides more than half the effort. 3-Ajomupezv-kuizti does ALL the effort. Patient does none of the effort to complete the activity. Or, the assistance of 2 or more helpers is required for the patient to complete the activity. If activity was not attempted, code reason: 7-Patient Refused. 9-Not Applicable-not attempted and the patient did not perform the activity before the current illness, exacerbation or injury. 10-Not Attempted due to Environmental Limitations-(lack of equipment, weather restraints, etc.). 88-Not Attempted due to Medical Conditions or Safety Concerns. Roll Left & Right (QC): 2 Sit to Lying (QC): 2 Lying to Sitting/Side of Bed(Q: 3 Sit to Stand (QC): 1 (x 2 with patient unable to lock bilateral knees with foot block) Chair/Yam-ga-Mfubs Xfer(QC): 7 attempted sit to stand to FWW x 3 sets with patient unable to weight bear Weight Bearing Right Lower Extremity: Right Weight Bearing/Tolerated Left Lower Extremity: Left Weight Bearing/Tolerated Exercises Supine Ex: Ankle pumps, Quad Set, Heel Slides, Straight leg raise, Hip abd/add Supine Reps: 12 (AAROM) Seated Therapy Exercises: Long arc quads Seated Reps: 12 (AAROM) Assessment Patient making slow progress. Patient instructed to perform exercises PRN to improve strength. PT Nurse Practitioner Home Assessments Goals Nurse Practitioner Home Assessments Goals PT Nurse Practitioner Home Assessments Goals Time Frame: Apr 28, 2020 Roll Left & Right (QC): 6 Sit to Lying (QC): 6 Lying-Sitting on Side/Bed(QC): 6 Sit to Stand (QC): 4 Chair/Imf-qe-Bfbjr Xfer(QC): 4 Toilet Transfer (QC): 4 Does the Patient Walk: Yes Walk 10 feet (QC): 4 Walk 50ft with 2 Turns (QC): 4 PT Plan Treatment/Plan Treatment Plan: Continue Plan of Care Treatment Plan: Bed Mobility, Education, Functional Activity Vikram, Functional Strength, Gait, Safety, Therapeutic Exercise, Transfers Treatment Duration: May 05, 2020 Frequency: 6 times per week Estimated Hrs Per Day: .25 hour per day Patient and/or Family Agrees t: Yes Time/GCodes Time In: 900 Time Out: 916 Total Billed Treatment Time: 16 Total Billed Treatment 1 visit FA 16 min SHERRY BAKER PT Apr 26, 2020 10:24
--- NOTE | 2020-04-26 11:10 | Occupational Ther Daily Note ---
OT Current Status-Daily Note Subjective Pt in bed/ HOB elevated. Alert/ oriented x3. Pt agrees to tx. States he did ex through the weekend. Pt states going to rehab in [place] "sometime." Mental Status/Objective Patient Orientation: Person, Place, Situation ADL-Treatment Therapy Code Descriptions/Definitions Functional [place] Measure: 0=Not Assessed/NA 4=Minimal Assistance 1=Total Assistance 5=Supervision or Setup 2=Maximal Assistance 6=Modified [place] 3=Moderate Assistance 7=Complete IndependenceSCALE: Activities may be completed with or without assistive devices. 5-Oogjhrriyl-umodtpq completes the activity by him/herself with no assistance from a helper. 5-Set-up or Clean-up Assistance-helper sets up or cleans up; patient completes activity. [place] assists only prior to or following the activity. 4-Supervision or Touching Assistance-helper provides verbal cues and/or touching/steadying and/or contact guard assistance as patient completes activity. Assistance may be provided throughout the activity or intermittently. 3-Partial/Moderate Assistance-helper does LESS THAN HALF the effort. [place] [employer] lifts, holds or supports trunk or limbs, but provides less than half the effort. 2-Substantial/Maximal Assistance-helper does MORE THAN HALF the effort. [place] [employer] lifts or holds trunk or limbs and provides more than half the effort. 5-Sdssackfh-jqanpe does ALL the effort. Patient does none of the effort to complete the activity. Or, the assistance of 2 or more helpers is required for the patient to complete the activity. If activity was not attempted, code reason: 7-Patient Refused. 9-Not Applicable-not attempted and the patient did not perform the activity before the current illness, exacerbation or injury. 10-Not Attempted due to Environmental Limitations-(lack of equipment, weather restraints, etc.). 88-Not Attempted due to Medical Conditions or Safety Concerns. Bathing Location: L Arm, R Arm, L Upper Leg, R Upper Leg, Chest, Abdomen Shower/Bathe Self (QC): 2 Upper Body Dressing (QC): 5 (s/u gown donning.) Lower Body Dressing (QC): 2 (Max A for brief donning. Pt able to roll side to side x2 for assist in bottom hygiene and breif donning.) On/Off Footwear: 1 (TD) Toileting Hygiene (QC): 2 (Max A. Pt able to roll for bottom care, given cloth for brigido area. Pt drops and unable to gather. Completed by OT.) Other Treatment Pt seen in bed. Supine to sit with max A. Pt sits EOB with fair sitting balance. Pt completes sponge bath EOB. Returns to supine to complete rolling tasks and bottom hygiene. Pt completes rolling with cues for hand positioning. Rolls 4x. Ax2 to reach HOB. Noted decreased coordination and ability to handle items/ hold items in hand for fx use. Pt supine with HOB elevated, pillows under calves, all needs met, call light in reach. Education OT Patient Education: Correct positioning, Exercise program, Home exercise program, Modified ADL techniques, Progress toward Goal/Update tx plan, Purpose of tx/functional activities, Transfer techniques Teaching Recipient: Patient Teaching Methods: Demonstration, Discussion Response to Teaching: Verbalize Understanding, Return Demonstration OT Short Term Goals Short Term Goals Time Frame: Apr 28, 2020 Eatin Oral hygiene: 4 Toileting hygiene: 4 Shower/bathe self: 3 Upper body dressin Lower body dressin Putting on/taking off footwear: 3 OT Fci Goals Fci Goals Time Frame: May 05, 2020 Eating (QC): 6 Oral Hygiene (QC): 5 Toileting Hygiene (QC): 4 Shower/Bathe Self (QC): 4 Upper Body Dressing (QC): 5 Lower Body Dressing (QC): 4 On/Off Footwear (QC): 4 Additional Goals: 1-Demonstrate ADL Tasks, 2-Verbalize Understanding, 3- ImproveStrength/Vikram 1=Demonstrate adherence to instructed precautions during ADL tasks. 2=Patient will verbalize/demonstrate understanding of assistive devices/modifications for ADL. 3=Patient will improve strength/tolerance for activity to enable patient to perform ADL's. OT Education/Plan Problem List/Assessment Assessment: Decreased Activ Tolerance, Decreased UE Strength, Dependent Transfers Discharge Recommendations Plan/Recommendations: Continue POC Therapy Discharge Recommendati: 24 Hour Supervision, Bath Aide, Post Acute OT Treatment Plan/Plan of Care Treatment,Training & Education: Yes Patient would benefit from OT for education, treatment and training to promote independence in ADL's, mobility, safety and/or upper extremity function for ADL's. Plan of Care: ADL Retraining, Functional Mobility, UE Funct Exercise/Act Treatment Duration: May 05, 2020 Frequency: 5 times per week Estimated Hrs Per Day: .25 hour per day Agreement: Yes Rehab Potential: Fair Time/GCodes Start Time: 10:03 Stop Time: 10:28 Total Time Billed (hr/min): 25 Billed Treatment Time 1, ADL 2 (25) SUSIE BUSTAMANTE OTR Apr 26, 2020 11:10
[2020-04-26 12:08] VITALS: BP 126/73
--- NOTE | 2020-04-26 14:10 | NUR ---
This RN took over patient care at this time. Patient alert and orientated resting in bed verbalizes no additional needs at this time
[2020-04-26 16:00] VITALS: BP 103/65
--- NOTE | 2020-04-26 16:41 | NUR ---
CM/SS follow up. The patient was sitting up in chair watching TV. He was alert and oriented x4. SNF: CM/SS contacted [facility] to check on referral status. They stated they could not find referral. CM/SS sent secure email with referral. CM/SS followed up again, they stated they will accept the patient pending [facility] service coverage. CM/SS contacted Eli to give an update. She verbalized understanding but had additional questions regarding diagnosis. CM/SS connected her to the physician. DPOA: Eli discussed having this sw see if patient wanted to complete DPOA paper work. CM/SS visited with patient to discuss Durable Power of Camp Maintenance Supervisor. He reported that he would like to complete the forms. The patient is oriented x4. CM/SS explained the durable power of assistant prosecuting attorney and read the form out loud for the patient. He named Eli Alexander as his first agent. No other agents named at this time. The patient additionally filled out the treatment directive. The forms were placed in the patient's medical chart and copies made and given to patient in a folder. CM/SS will continue to follow.
[2020-04-26] MEDS: TAMSULOSIN 0.4 MG (FLOMAX) CAP PO SCH (17:04)
[2020-04-26 19:57] VITALS: BP 127/73
[2020-04-26] MEDS: FENOFIBRATE 134 MG (LOFIBRA) CAPSULE PO SCH (21:18)
[2020-04-26] MEDS: ROSUVASTATIN 20 MG (CRESTOR) TABLET PO SCH (21:25)
--- NOTE | 2020-04-26 22:00 | NUR ---
STATES ENJOYED SITTING UP IN RECLINER AND FEELING BETTER. ASSISTED BACK TO BED PER LUIS LIFT. DENIES PAIN.
[2020-04-27] VITALS (8 sets, daily range): BP systolic 96–138; BP diastolic 60–73
--- NOTE | 2020-04-27 03:20 | NUR ---
This RN took over patient care at this time. Received report and agree with previous RNs assessment. Patient resting with eyes closed.
[2020-04-27 05:06] LABS: POTASSIUM 4.9 MMOL/L (3.6-5.0)
[2020-04-27 05:12] LABS: CREATININE SERUM 2.02 MG/DL (0.60-1.30)
[2020-04-27 05:14] LABS: MAGNESIUM 2.4 MG/DL (1.6-2.4)
[2020-04-27] MEDS: inSUlin ASPART (NovoLOG) 1 UNIT/0.01 ML (CHARGE PER UNIT) SC SCH ×7 (06:27→22:20)
[2020-04-27] MEDS: hydrALAZINE (APRESOLINE) 25 MG TAB PO SCH ×4 (06:43→22:07)
[2020-04-27] MEDS: predniSONE 20 MG TAB PO SCH (06:43)
[2020-04-27] MEDS: amLODIPine 10 MG (NORVASC) TAB PO SCH (08:27)
[2020-04-27] MEDS: DOCUSATE SODIUM 100 MG (COLACE) CAP PO SCH ×2 (08:27→22:05)
[2020-04-27] MEDS: guaiFENesin (MUCINEX) 600 MG TAB PO SCH ×2 (08:27→22:07)
[2020-04-27] MEDS: CLOPIDOGREL 75 MG (PLAVIX) TABLET PO SCH (08:27)
[2020-04-27] MEDS: ENOXAPARIN 40 MG/0.4 ML (LOVENOX) SYR SC SCH (08:27)
[2020-04-27] MEDS: SENNOSIDES 8.6 MG (SENOKOT) TAB PO SCH ×2 (08:27→22:06)
[2020-04-27] MEDS: ASPIRIN E.C. 81 MG (ECOTRIN) TAB PO SCH (08:30)
[2020-04-27] MEDS: CARVEDILOL 12.5 MG (COREG) TABLET PO SCH ×2 (08:30→22:08)
[2020-04-27] MEDS ORDERED: PRD20T PO (08:44)
[2020-04-27] MEDS ORDERED: HYDR-3923 PO (08:44)
[2020-04-27] MEDS ORDERED: AMLO-251 PO (08:44)
[2020-04-27] MEDS ORDERED: CARV25TA PO (08:44)
[2020-04-27] MEDS ORDERED: GUAI600T43 PO (08:44)
[2020-04-27] MEDS ORDERED: INSU100V5 SQ (08:44)
[2020-04-27] MEDS ORDERED: TMSL.4C PO (08:44)
[2020-04-27] MEDS ORDERED: INSU100V16 SC (08:44)
[2020-04-27] MEDS: RT-ALBUTEROL/IPRATROPIUM 3 ML (DUONEB) VIAL INH PRN (08:49)
--- NOTE | 2020-04-27 08:50 | Discharge Inst-Skilled Nursing ---
Discharge Inst-Skilled NF Patient Instructions Patient Problems: CHF, COPD, IDDMI, HTN Patient Instructions: Please continue to take your medicationas as written. Please follow up with the medical van driver in the [facility] to follow up this hospital stay. Continue to work with therapy as you have to regain your strength. Consult/Follow Up/Orders Follow Up Appt.: With a medical van driver in the next week. Skilled NF Admit to: Certification (SNF) I certify that SNF services are required to be given on an inpatient basis because of the above named patient's need for group home care on a continuing basis for the conditions(s) for which he/she was receiving inpatient hospital services prior to his/her transfer to the SNF. Jail Facility Order: Nursing Services, Transformation Specialist-Evaluate & Treat, Physical Therapy-Evaluate & Treat Oxygen Delivery Method: Room Air Discharge Diet: Low Sodium Diet Daily Activity as Tolerated: Yes Resuscitation Status: Full Code New & Resume Previous Orders Lakeisha Holguin Apr 27, 2020 08:45 LAKEISHA HOLGUIN MD Apr 27, 2020 08:50
[2020-04-27] MEDS ORDERED: FUROSEMIDE 40 MG (LASIX) TAB PO SCH (09:00)
--- NOTE | 2020-04-27 11:54 | Physical Therapy Daily Note ---
PT Daily Note-Current Subjective Patient is up in recliner and agrees to PT. Mental Status Patient Orientation: Normal For Age Transfers SCALE: Activities may be completed with or without assistive devices. 0-Wxsdzjpago-pjiicpd completes the activity by him/herself with no assistance from a helper. 5-Set-up or Clean-up Assistance-helper sets up or cleans up; patient completes activity. [place] assists only prior to or following the activity. 4-Supervision or Touching Assistance-helper provides verbal cues and/or touching/steadying and/or contact guard assistance as patient completes activity. Assistance may be provided throughout the activity or intermittently. 3-Partial/Moderate Assistance-helper does LESS THAN HALF the effort. [place] lifts, holds or supports trunk or limbs, but provides less than half the effort. 2-Substantial/Maximal Assistance-helper does MORE THAN HALF the effort. [place] lifts or holds trunk or limbs and provides more than half the effort. 3-Klgczclfo-jvfxfe does ALL the effort. Patient does none of the effort to complete the activity. Or, the assistance of 2 or more helpers is required for the patient to complete the activity. If activity was not attempted, code reason: 7-Patient Refused. 9-Not Applicable-not attempted and the patient did not perform the activity before the current illness, exacerbation or injury. 10-Not Attempted due to Environmental Limitations-(lack of equipment, weather restraints, etc.). 88-Not Attempted due to Medical Conditions or Safety Concerns. Sit to Stand (QC): 1 (x 3 sets with sit to stand lift) Weight Bearing Right Lower Extremity: Right Weight Bearing/Tolerated Left Lower Extremity: Left Weight Bearing/Tolerated Exercises Seated Therapy Exercises: Ankle pumps, Long arc quads, Hip flexion Seated Reps: 15 (x 2 sets) Assessment Patient continues to be unable to perform sit to stand and initiate hip flexion and quad contraction. Sit to stand lift utilized PT Flexo Folder Gluer Operator Goals Flexo Folder Gluer Operator Goals PT Flexo Folder Gluer Operator Goals Time Frame: Apr 28, 2020 Roll Left & Right (QC): 6 Sit to Lying (QC): 6 Lying-Sitting on Side/Bed(QC): 6 Sit to Stand (QC): 4 Chair/Txe-lc-Grpzx Xfer(QC): 4 Toilet Transfer (QC): 4 Does the Patient Walk: Yes Walk 10 feet (QC): 4 Walk 50ft with 2 Turns (QC): 4 PT Plan Treatment/Plan Treatment Plan: Continue Plan of Care Treatment Plan: Bed Mobility, Education, Functional Activity Vikram, Functional Strength, Gait, Safety, Therapeutic Exercise, Transfers Treatment Duration: May 05, 2020 Frequency: 6 times per week Estimated Hrs Per Day: .25 hour per day Patient and/or Family Agrees t: Yes Time/GCodes Time In: 1000 Time Out: 1027 Total Billed Treatment Time: 27 Total Billed Treatment 1 visit EX x 2 27 min SHERRY BAKER PT Apr 27, 2020 11:54
--- NOTE | 2020-04-27 13:54 | Cardiology Progress Note ---
Cardiology SOAP Progress Note Subjective: Improved shortness of breath Objective: I&O/Vital Signs 04/27/20 04/27/20 04/27/20 04/27/20 04:24 07:20 08:00 08:05 Temp 36.3 36.2 Pulse 65 65 Resp 18 18 B/P (MAP) 116/69 (85) 117/68 (84) Pulse Ox 94 97 91 O2 Delivery Room Air Room Air Room Air Room Air 04/27/20 04/27/20 04/27/20 08:50 08:50 11:12 Temp 36.0 Pulse 56 Resp 18 B/P (MAP) 101/62 (75) Pulse Ox 92 97 O2 Delivery Room Air Room Air Room Air 04/27/20 00:00 Intake Total 1635 ml Balance 1635 ml Weight (Pounds): 186 Weight (Ounces): 0.0 Weight (Calculated Kilograms): 84.085402 Constitutional: AAO x 3 Respiratory: chest is bilaterally symmetric, lungs clear to auscultation Cardiovascular: regular rate-rhythm, S1 and S2 Gastrointestional: soft, audible bowel sounds Extremities: pedal edema Neurologic/Psychiatric: no motor/sensory deficits, alert, normal mood/affect, oriented x 3 Results/Procedures: Labs Laboratory Tests 04/26/20 15:28: Glucometer 242H 04/26/20 20:13: Glucometer 248H 04/27/20 04:20: Sodium Level 136, Potassium Level 4.9, Chloride Level 99, Carbon Dioxide Level 26, Anion Gap 11, Blood Urea Nitrogen 50H, Creatinine 2.02H, Estimat Glomerular Filtration Rate 32, BUN/Creatinine Ratio 25, Glucose Level 140H, Calcium Level 8.0L, Magnesium Level 2.4, Procalcitonin 0.15H 04/27/20 06:19: Glucometer 126H 04/27/20 11:11: Glucometer 235H Microbiology 04/20/20 Blood Culture - Final, Complete No growth A/P: Assessment/Dx: Acute on chronic systolic Congestive heart failure, Coronary artery disease Hypertension Hyperlipidemia Plan: Congestive heart failure, acute on chronic left ventricular systolic dysfunction, probably ischemic in nature, ejection fraction 30-35 percent, responded well to diuretics, continue with low-dose Lasix and monitor Patient is unable to tolerate KRYS inhibitor and/or ARB due to renal failure and hyperkalemia Cough productive of yellowish-green sputum, mild dyspnea. CXR showing left basilar infiltrate with some improvement compared to previous CXR. Continue to monitor. Mildly elevated troponin, likely type II CT secondary to CHF. EKG showing no acute ST changes, denies any chest pain. Conservative management is recommended Peripheral arterial disease, history of complex intervention on the right lower extremity in 2017 with 2 stent deployment self-expanding Innova 7 x 100 proximally and 6 x 80 distally with excellent results. Total occlusion below the knee, attempt to intervene on it without success, patient was referred to Dr. Solis where he underwent peripheral angiogram on October 31, 2016 with attempted unsuccessful recannulization of right tibioperoneal trunk. Recommended continuing with conservative management. 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 Dominant artery, reconstructed by collaterals. Severe stenosis at the mid circumflex artery and long segment of stenosis in the proximal LAD. EF 30 percent. Patient was sent for evaluation for possible bypass surgery. He was evaluated by Dr. Dale Thomas. He was considered to be high risk for bypass secondary to being high risk for infectious complications given his active psoriasis all over his body. Underwent cardiac catheterization 2 was staged intervention by Dr. Solis on August 29, 2016 and September 05, 2016 with 2.520 mm Promus drug-eluting stent deployed to the proximal left circumflex artery. Patient also had 2.2516 mm Promus drug-eluting stent to the mid LAD, and 2.2516 mm Promus drug-eluting stent to the diagonal with good results. Continue with conservative management at this point Hypertension, status post transient hypotension, elevated blood pressure probably secondary to steroids. Continue on current medications and monitor Hyperlipidemia, monitor lipids Acute on chronic renal insufficiency, slightly better. And tinea to monitor Renal artery stenosis, underwent right renal artery stenting by Dr. Solis on October 31, 2016. Continue to monitor. 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 History of multiple TIAs. Source was not identified. Maintained on aspirin. Mild bilateral carotid stenosis, ultrasound was done in April 2016. Continue to monitor Diabetes mellitus, followed and managed by primary care physician Lisha, still an active smoker working on smoking cessation, discussed and left smoking cessation History of psoriasis. History of bladder CA. Has been cancer free for 3 years. Followed at the [facility] Thank you for your consultation. Please call me if you have any questions. Estela Hudson MD, FACP, FACC, FSCAI, FHRS, CCDS Interventional Cardiology Cardiac Electrophysiology Vascular Medicine and Endovascular Interventions Mando HUDSON MD Apr 27, 2020 13:54
--- NOTE | 2020-04-27 14:25 | Occupational Ther Daily Note ---
OT Current Status-Daily Note Subjective Pt seated on [facility] with staff present at start of session. Agreeable to OT tx. ADL-Treatment Therapy Code Descriptions/Definitions Functional Webster Measure: 0=Not Assessed/NA 4=Minimal Assistance 1=Total Assistance 5=Supervision or Setup 2=Maximal Assistance 6=Modified [place] 3=Moderate Assistance 7=Complete IndependenceSCALE: Activities may be completed with or without assistive devices. 6-Wtgtmlqmch-ccllqqb completes the activity by him/herself with no assistance from a helper. 5-Set-up or Clean-up Assistance-helper sets up or cleans up; patient completes activity. [place] assists only prior to or following the activity. 4-Supervision or Touching Assistance-helper provides verbal cues and/or touching/steadying and/or contact guard assistance as patient completes activity. Assistance may be provided throughout the activity or intermittently. 3-Partial/Moderate Assistance-helper does LESS THAN HALF the effort. [place] lifts, holds or supports trunk or limbs, but provides less than half the effort. 2-Substantial/Maximal Assistance-helper does MORE THAN HALF the effort. [place] lifts or holds trunk or limbs and provides more than half the effort. 5-Iiebjznww-rgahzd does ALL the effort. Patient does none of the effort to complete the activity. Or, the assistance of 2 or more helpers is required for the patient to complete the activity. If activity was not attempted, code reason: 7-Patient Refused. 9-Not Applicable-not attempted and the patient did not perform the activity before the current illness, exacerbation or injury. 10-Not Attempted due to Environmental Limitations-(lack of equipment, weather restraints, etc.). 88-Not Attempted due to Medical Conditions or Safety Concerns. Toileting Hygiene (QC): 1 (Pt required assistance completing hygiene, assist x3 with 2 person assisting with stand as 1 person completed hygiene.) Toilet Transfer (QC): 1 (Max assist x2 transfer from [facility] to recliner.) Other Treatment Pt seated on [facility] with staff present. Pt stood from [facility] with x2 assist for stand as another person performed hygiene. Pt transferred from [facility] to recliner with max A x2. Pt's gown soiled from BM, OT assisted pt with doffing gown, and cleaning up side of body that gown touched. OT provided pt with clean gown. OT encourages pt to complete grooming tasks, pt agreeable stating he has tried to have family bring his comb but has not received one. OT gathered comb for him an d handed it to pt. Pt able to brush R side of hair but distracts easily with task requiring redirection, and min A wtih combing R side of hair. Pt indicates slight difficulty with holding comb, he feels like his hand is twice the size it is. Pt then able to wash face with set up assistance. Staff member comes in to discuss discharge plans with pt. Post OT tx, pt seated in recliner, call light in reach and all needs met, staff member present. Education OT Patient Education: Correct positioning, Modified ADL techniques, Progress toward Goal/Update tx plan, Purpose of tx/functional activities Teaching Recipient: Patient Teaching Methods: Discussion Response to Teaching: Verbalize Understanding OT Short Term Goals Short Term Goals Time Frame: Apr 28, 2020 Eatin Oral hygiene: 4 Toileting hygiene: 4 Shower/bathe self: 3 Upper body dressin Lower body dressin Putting on/taking off footwear: 3 OT Nursing Home Goals Nursing Home Goals Time Frame: May 05, 2020 Eating (QC): 6 Oral Hygiene (QC): 5 Toileting Hygiene (QC): 4 Shower/Bathe Self (QC): 4 Upper Body Dressing (QC): 5 Lower Body Dressing (QC): 4 On/Off Footwear (QC): 4 Additional Goals: 1-Demonstrate ADL Tasks, 2-Verbalize Understanding, 3- ImproveStrength/Vikram 1=Demonstrate adherence to instructed precautions during ADL tasks. 2=Patient will verbalize/demonstrate understanding of assistive devices/modifications for ADL. 3=Patient will improve strength/tolerance for activity to enable patient to perform ADL's. OT Education/Plan Problem List/Assessment Assessment: Decreased Activ Tolerance, Decreased UE Strength, Dependent Transfers, Impaired Funct Balance, Impaired I ADL's, Impaired Self-Care Skills Discharge Recommendations Plan/Recommendations: Continue POC Treatment Plan/Plan of Care Patient would benefit from OT for education, treatment and training to promote independence in ADL's, mobility, safety and/or upper extremity function for ADL's. Plan of Care: ADL Retraining, Functional Mobility, UE Funct Exercise/Act Treatment Duration: May 05, 2020 Frequency: 5 times per week Estimated Hrs Per Day: .25 hour per day Agreement: Yes Rehab Potential: Fair Time/GCodes Start Time: 13:50 Stop Time: 14:09 Total Time Billed (hr/min): 19 Billed Treatment Time 1, ADL MARIELLE MELARA OT Apr 27, 2020 14:25
--- NOTE | 2020-04-27 14:27 | NUR ---
CM/SS follow up. Plan: Patient will discharge to [facility] tomorrow 04/28 skilled. 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 CM/SS notified the patient's nurse and provided the nursing report number. He verbalized understanding. CM/SS notified the patient's physician. CM/SS spoke with the patient's daughter Eli to discuss plans. CM/SS informed her that patient was accepted under medicare skilled benefits and will plan for 20 days of rehab. However, Anmol from the facility reported that they will work with his VA benefits to get extended time if needed. The patient's daughter Eli will bring the patient a fresh set of clothes and his leather Jacket. CM/SS faxed DPOA, Medicare card, updated clinical, and un-finalized skilled discharge orders. CM/SS will continue to follow.
--- NOTE | 2020-04-27 14:48 | Progress Note - Hospitalist ---
Subjective HPI/CC On Admission Date Seen by Provider: Apr 27, 2020 Time Seen by Provider: 07:30 Subjective/Events-last exam Pt reports doing well. Was up in chair more yesterday. Denied any pain to me. Was talking with his daughter when I entered room so she was placed on speaker phone and we discussed plan to await insurance approval for SNF but to continue working with therapy. Objective Exam Vital Signs Vital Signs Date Time Temp Pulse Resp B/P (MAP) Pulse Ox O2 Delivery O2 Flow Rate FiO2 04/27/20 11:12 36.0 56 18 101/62 (75) 97 Room Air 04/21/20 11:41 50.00 Capillary Refill : Less Than 3 SecondsLess Than 3 Seconds General Appearance: No Apparent Distress, Chronically ill Respiratory: Lungs Clear, No Respiratory Distress Cardiovascular: Regular Rate, Rhythm, No Murmur Neurologic/Psychiatric: Alert, Oriented x3 Results/Procedures Lab Laboratory Tests 04/27/20 04:20 Patient resulted labs reviewed. Assessment/Plan Assessment and Plan Assess & Plan/Chief Complaint Debility PT/OT environmental services coordinator consulted, appreciate assistance with placement- plan for DC tomorrow Medically stable for discharge, awaiting placement Acute on chronic HFrEF Continue Lasix at home dose CKD Hyperkalemia- mild Monitor hyperkalemia resolved Creatinine up a bit but wondering around his baseline COPD Continue Duoneb T2DM Levemir SSI HTN Continue Hydralazine, Amlodpine, Coreg DC Losartan DVT prophylaxis: Lovenox MOLLY on CKD, resolved Clinical Quality Measures DVT/VTE Risk/Contraindication: Risk Factor Score Per Nursin RFS Level Per Nursing on Admit: 4+=Very High LAKEISHA CHU MD Apr 27, 2020 14:48
[2020-04-27] MEDS: TAMSULOSIN 0.4 MG (FLOMAX) CAP PO SCH (17:02)
[2020-04-27] MEDS: FENOFIBRATE 134 MG (LOFIBRA) CAPSULE PO SCH (22:07)
[2020-04-27] MEDS: ROSUVASTATIN 20 MG (CRESTOR) TABLET PO SCH (22:07)
[2020-04-28 03:44] VITALS: BP 110/69
[2020-04-28 06:38] LABS: POTASSIUM 5.1 MMOL/L (3.6-5.0)
[2020-04-28 06:39] LABS: CALCIUM 7.9 MG/DL (8.5-10.1)
[2020-04-28 06:44] LABS: CREATININE SERUM 2.23 MG/DL (0.60-1.30)
[2020-04-28 06:47] LABS: MAGNESIUM 2.4 MG/DL (1.6-2.4)
[2020-04-28] MEDS: inSUlin ASPART (NovoLOG) 1 UNIT/0.01 ML (CHARGE PER UNIT) SC SCH ×4 (06:54→11:45)
[2020-04-28] MEDS: hydrALAZINE (APRESOLINE) 25 MG TAB PO SCH (06:58)
[2020-04-28] MEDS: predniSONE 20 MG TAB PO SCH (07:00)
[2020-04-28 07:41] VITALS: BP 110/60
--- NOTE | 2020-04-28 09:04 | Discharge Summary ---
Diagnosis/Chief Complaint Date of Admission Apr 20, 2020 at 16:23 Date of Discharge Discharge Date: Apr 28, 2020 Primary Care Dhaval Liang MD Discharge Diagnosis (1) Debility Status: Acute (2) Acute on chronic HFrEF (heart failure with reduced ejection fraction) Status: Resolved (3) Acute kidney injury superimposed on chronic kidney disease Status: Resolved Discharge Summary Discharge Physical Exam Allergies: Coded Allergies: lisinopril (Verified Allergy, Unknown, renal failure, 01/21/19) metformin (Verified Allergy, Unknown, renal failure, 01/21/19) Vitals & I&Os Vital Signs Date Time Temp Pulse Resp B/P (MAP) Pulse Ox O2 Delivery O2 Flow Rate FiO2 04/28/20 07:41 35.5 64 20 110/60 (77) 93 Room Air Hospital Course Labs (last 24 hrs) Laboratory Tests 04/27/20 11:11: Glucometer 235H 04/27/20 15:39: Glucometer 226H 04/27/20 20:08: Glucometer 253H 04/28/20 05:58: Sodium Level 133L, Potassium Level 5.1H, Chloride Level 99, Carbon Dioxide Level 24, Anion Gap 10, Blood Urea Nitrogen 58H, Creatinine 2.23H, Estimat Glomerular Filtration Rate 29, BUN/Creatinine Ratio 26, Glucose Level 94, Calcium Level 7.9L, Magnesium Level 2.4 Microbiology 04/20/20 Blood Culture - Final, Complete No growth Patient resulted labs reviewed. Pending Labs Laboratory Tests 04/28/20 05:58: Sodium Level 133, Potassium Level 5.1, Chloride Level 99, Carbon Dioxide Level 24, Anion Gap 10, Blood Urea Nitrogen 58, Creatinine 2.23, Estimat Glomerular Filtration Rate 29, BUN/Creatinine Ratio 26, Glucose Level 94, Calcium Level 7.9, Magnesium Level 2.4 Discharge Home Medications: Active Scripts Active Hydralazine HCl 25 Mg Tablet 25 Mg PO Q8HR Mucinex (Guaifenesin) 600 Mg Tab.er.12h 600 Mg PO BID PRN Prednisone 20 Mg Tab 40 Mg PO DAILY@0700 Novolog (Insulin Aspart) 100 Unit/1 Ml Susp 3 Unit SC AC Levemir (Insulin Determir) 1,000 Units/10 Ml Soln 15 Unit SQ DAILY@0900 Amlodipine Besylate 10 Mg Tablet 10 Mg PO DAILY Carvedilol 25 Mg Tablet 25 Mg PO BID Flomax (Tamsulosin HCl) 0.4 Mg Cap 0.4 Mg PO DAILY@1800 Lantus (Insulin Glargine,Hum.rec.anlog) 100 Unit/1 Ml Vial 20 Unit SQ DAILY 30 Days LAST FILLED FROM [facility] SEPTEMBER 2019 Reported Coreg (Carvedilol) 12.5 Mg Tablet 12.5 Mg PO BID Plavix (Clopidogrel Bisulfate) 75 Mg Tablet 75 Mg PO DAILY Furosemide 20 Mg Tablet 20 Mg PO DAILY Aspirin EC (Aspirin) 81 Mg Tablet.dr 81 Mg PO DAILY Amlodipine Besylate 10 Mg Tablet 5 Mg PO DAILY TAKES OF A 10 MG TAB LAST FILLED APRIL 2019 #45/90 DAY SUPPLY Trulicity (Dulaglutide) 0.75 Mg/0.5 Ml Pen.injctr 0.75 Mg SQ WE LAST FILLED FROM [facility] JUN 2019 Rosuvastatin Calcium 40 Mg Tablet 40 Mg PO HS LAST FILLED FROM [facility] SEPTEMBER 2019 #90 Fenofibrate (Fenofibrate Nanocrystallized) 145 Mg Tablet 145 Mg PO DAILY LAST FILLED FROM [facility] 06-21-18 #90 Flaxseed Oil 1,000 Mg Capsule 1,000 Mg PO DAILY Instructions to patient/family Please see electronic discharge instructions given to patient. Clinical Quality Measures DVT/VTE Risk/Contraindication: Risk Factor Score Per Nursin RFS Level Per Nursing on Admit: 4+=Very High LAKEISHA CHU MD Apr 28, 2020 09:04
[2020-04-28] MEDS: amLODIPine 10 MG (NORVASC) TAB PO SCH (09:17)
[2020-04-28] MEDS: guaiFENesin (MUCINEX) 600 MG TAB PO SCH (09:17)
[2020-04-28] MEDS: ASPIRIN E.C. 81 MG (ECOTRIN) TAB PO SCH (09:18)
[2020-04-28] MEDS: CLOPIDOGREL 75 MG (PLAVIX) TABLET PO SCH (09:18)
[2020-04-28] MEDS: DOCUSATE SODIUM 100 MG (COLACE) CAP PO SCH (09:18)
[2020-04-28] MEDS: CARVEDILOL 12.5 MG (COREG) TABLET PO SCH (09:19)
[2020-04-28] MEDS: ENOXAPARIN 40 MG/0.4 ML (LOVENOX) SYR SC SCH (09:19)
[2020-04-28] MEDS: SENNOSIDES 8.6 MG (SENOKOT) TAB PO SCH (09:19)
--- NOTE | 2020-04-28 09:38 | NUR ---
CM/SS finalized plan. Plan: Patient will discharge today at 11:00 a.m. to [facility] in [place], [place]. CM/SS spoke with the patient's daughter Eli last evening. She is bringing the patient clothes for patient to discharge in. Eli is aware of pick up attendant time and discharge plan. CM/SS sent finalized discharge skilled orders to facility with copy of scripts. CM/SS informed the facility of where they should pick up attendant patient. No further needs at this time.
== END 2020-04-28 11:35 | DRG 280 ==
LOC: EDUNIT# 14:36 → ER 14:37 → CSD 16:23 → 4TH 04-23 15:42
PROVIDERS: ADMIT Internal Medicine; ATTEND Internal Medicine
DX: I13.0 Hypertensive heart and chronic kidney disease with heart failure and stage 1 through stage 4 chronic kidney disease, or unspecified chronic kidney disease (principal); I50.23 Acute on chronic systolic (congestive) heart failure; I21.A1 Myocardial infarction type 2; N17.9 Acute kidney failure, unspecified; I25.5 Ischemic cardiomyopathy; N18.30 Chronic kidney disease, stage 3 unspecified; I16.0 Hypertensive urgency; I25.10 Atherosclerotic heart disease of native coronary artery without angina pectoris; Z20.828 Contact with and (suspected) exposure to other viral communicable diseases; I25.82 Chronic total occlusion of coronary artery; I95.9 Hypotension, unspecified; E11.51 Type 2 diabetes mellitus with diabetic peripheral angiopathy without gangrene; E78.5 Hyperlipidemia, unspecified; E87.5 Hyperkalemia; F17.210 Nicotine dependence, cigarettes, uncomplicated; L40.0 Psoriasis vulgaris; M19.91 Primary osteoarthritis, unspecified site; J30.2 Other seasonal allergic rhinitis; M54.5 Low back pain; I65.23 Occlusion and stenosis of bilateral carotid arteries; Z95.5 Presence of coronary angioplasty implant and graft; Z95.828 Presence of other vascular implants and grafts; Z91.81 History of falling; Z86.73 Personal history of transient ischemic attack (TIA), and cerebral infarction without residual deficits; Z79.4 Long term (current) use of insulin; Z85.46 Personal history of malignant neoplasm of prostate; Z85.51 Personal history of malignant neoplasm of bladder; Z85.828 Personal history of other malignant neoplasm of skin; Z89.421 Acquired absence of other right toe(s)
CPT/HCPCS: 36415; 51702; 70450; 71045; 72125; 72170; 80048; 80053; 81000; 82550; 82962; 83605; 83735; 83880; 84145; 84484; 85025; 85027; 85610; 87040; 87635; 93005; 93306; 94640; 94660; 94760; 96374